=== PATIENT | female | born 1960 | race Caucasian/White ===

== ENCOUNTER 2017-10-29 12:22 | Emergency (ER) | payer MEDICAID ==
[~2017-10-29 12:22] MED LIST: ATOR40TA70 PO; DICY10CA59 PO; LORA1TAB PO; MONT10TA24 PO; PROT40 PO; ZOLP5TAB2 PO
[2017-10-29] MEDS ORDERED: ALPRAZOLAM 0.25 MG TABLET PO ONE (14:30)
[2017-10-29] MEDS ORDERED: ACETAMINOPHEN 500MG TABLET PO ONE (14:30)
[2017-10-29] MEDS ORDERED: MAGNESIUM/ALUMINUM HYDROXIDE/SIMETHICONE 30ML UDC PO ONE (18:15)
[2017-10-29 20:24] VITALS: BP 122/70
== END 2017-10-29 20:26 | disposition home or self-care (01) ==
LOC: ER 13:13
DX: R07.89 Other chest pain (principal); F41.9 Anxiety disorder, unspecified; E78.00 Pure hypercholesterolemia, unspecified; M32.9 Systemic lupus erythematosus, unspecified; R00.0 Tachycardia, unspecified; Z98.890 Other specified postprocedural states; Z90.49 Acquired absence of other specified parts of digestive tract; Z83.3 Family history of diabetes mellitus; Z87.442 Personal history of urinary calculi
CPT/HCPCS: 36415; 71046; 84484; 93005; 99285; Z7610

== ENCOUNTER 2018-01-05 11:54 | Emergency (ER) | payer MEDICAID ==
[~2018-01-05] VITALS: Ht 160 cm; Wt 68.0 kg
[2018-01-05] MEDS ORDERED: LORAZEPAM 0.5MG TABLET PO ONE ×2 (12:45→15:15)
[2018-01-05] MEDS ORDERED: MAGNESIUM/ALUMINUM HYDROXIDE/SIMETHICONE 30ML UDC PO ONE (12:45)
[2018-01-05 12:49] LABS: BASOPHILS % 0.9 % (0.0-2.0); EOSINOPHILS % 0.8 % (0.0-5.0); HEMATOCRIT. 39.8 % (36.0-48.0); HEMOGLOBIN. 13.5 g/dL (12.0-16.0); LYMPHOCYTES % 30.5 % (20.0-50.0); MEAN CORPUSCULAR HEMOGLOBIN 28.9 pg (28.0-32.0); MEAN CORPUSCULAR VOLUME 85.3 fL (81.0-99.0); MEAN PLATELET VOLUME 7.3 fl (7.4-10.4); MONOCYTES % 10.8 % (2.0-8.0); PLATELET 330 x1000/uL (130-400); RED BLOOD CELL COUNT 4.67 mill/uL (4.2-5.4); RED CELL DISTRIBUTION WIDTH 15.1 % (11.6-14.6)
[2018-01-05 12:52] LABS: CHLORIDE 102 mEq/L (98-107)
[2018-01-05 12:53] LABS: PROTHROMBIN TIME 10.5 sec (9.4-11.6)
[2018-01-05 14:43] VITALS: BP 139/80
== END 2018-01-05 15:40 | disposition home or self-care (01) ==
LOC: ER 13:02
DX: R07.9 Chest pain, unspecified (principal); R10.13 Epigastric pain; F41.1 Generalized anxiety disorder; R00.2 Palpitations; E78.00 Pure hypercholesterolemia, unspecified; M32.9 Systemic lupus erythematosus, unspecified; Z90.49 Acquired absence of other specified parts of digestive tract; Z87.442 Personal history of urinary calculi; Z98.890 Other specified postprocedural states
CPT/HCPCS: 36415; 71045; 80053; 83690; 83880; 84484; 85025; 85610; 93005; 99285

== ENCOUNTER 2018-03-20 10:05 | Emergency (ER) | payer MEDICAID ==
[~2018-03-20] VITALS: Ht 160 cm; Wt 63.0 kg
[~2018-03-20 10:05] MED LIST changes: +ASPI-1160 PO; +SUCR1TAB30 PO
[2018-03-20] MEDS ORDERED: FAMOTIDINE 20MG/2ML VIAL IV ONE (10:45)
[2018-03-20] MEDS ORDERED: SODIUM CHLORIDE 0.9% 1,000 ML IV ONE (10:45)
[2018-03-20] MEDS ORDERED: MORPHINE SULFATE 4 MG/ML CPJ (NOT FOR IM USE) IV STA (10:45)
[2018-03-20] MEDS ORDERED: VISCOUS LIDOCAINE 2% 15 ML UDC PO ONE (10:45)
[2018-03-20] MEDS ORDERED: MAGNESIUM/ALUMINUM HYDROXIDE/SIMETHICONE 30ML UDC PO ONE (10:45)
[2018-03-20 11:05] LABS: BASOPHILS % 0.6 % (0.0-2.0); EOSINOPHILS % 1.6 % (0.0-5.0); HEMATOCRIT. 41.8 % (36.0-48.0); HEMOGLOBIN. 13.9 g/dL (12.0-16.0); LYMPHOCYTES % 31.6 % (20.0-50.0); MEAN CORPUSCULAR HEMOGLOBIN 28.5 pg (28.0-32.0); MEAN CORPUSCULAR VOLUME 85.3 fL (81.0-99.0); MEAN PLATELET VOLUME 7.3 fl (7.4-10.4); MONOCYTES % 8.1 % (2.0-8.0); NEUTROPHILS % 58.1 % (40.0-76.0); PLATELET 325 x1000/uL (130-400); RED CELL DISTRIBUTION WIDTH 14.9 % (11.6-14.6)
[2018-03-20 11:32] LABS: CHLORIDE 105 mEq/L (98-107)
[2018-03-20] MEDS ORDERED: LORAZEPAM 0.5MG TABLET PO ONE (12:00)
[2018-03-20] MEDS ORDERED: IBUPROFEN 600MG TABLET PO ONE (14:30)
[2018-03-20 15:03] VITALS: BP 141/87
== END 2018-03-20 15:04 | disposition home or self-care (01) ==
LOC: ER 10:05
DX: R10.13 Epigastric pain (principal); R07.9 Chest pain, unspecified; F41.9 Anxiety disorder, unspecified; K21.9 Gastro-esophageal reflux disease without esophagitis; M32.9 Systemic lupus erythematosus, unspecified; Z79.82 Long term (current) use of aspirin; Z90.49 Acquired absence of other specified parts of digestive tract
CPT/HCPCS: 36415; 71045; 80053; 84484; 85025; 85610; 93005; 96374; 99285; J2270; J3490; J7030; Z7610

== ENCOUNTER 2018-03-27 10:09 | Emergency (ER) | payer MEDICAID ==
[~2018-03-27] VITALS: Ht 154.9 cm; Wt 62.0 kg
[2018-03-27] MEDS ORDERED: SODIUM CHLORIDE 0.9% 1,000 ML IV ONE (10:38)
[2018-03-27] MEDS ORDERED: MORPHINE SULFATE 4 MG/ML CPJ (NOT FOR IM USE) IV STA (10:38)
[2018-03-27] MEDS ORDERED: ONDANSETRON HCL 4MG/2ML VIAL IV STA (10:38)
[2018-03-27 11:04] LABS: CLARITY URINE CLEAR (CLEAR); COLOR URINE YELLOW (YELLOW); KETONES URINE NEGATIVE (NEGATIVE); LEUKOCYTE ESTERASE URINE NEGATIVE (NEGATIVE); NITRITE URINE NEGATIVE (NEGATIVE); OCCULT BLOOD URINE NEGATIVE (NEGATIVE); PH URINE 6.5 (4.5-8.0); PROTEIN URINE NEGATIVE (NEGATIVE); SPECIFIC GRAVITY URINE 1.007 (1.005-1.030); UROBILINOGEN URINE 0.2 E.U./dL (0.2-1.0)
[2018-03-27 11:27] LABS: BASOPHILS % 0.5 % (0.0-2.0); EOSINOPHILS % 0.8 % (0.0-5.0); HEMATOCRIT. 40.5 % (36.0-48.0); HEMOGLOBIN. 13.7 g/dL (12.0-16.0); LYMPHOCYTES % 27.3 % (20.0-50.0); MEAN CORPUSCULAR HEMOGLOBIN 28.6 pg (28.0-32.0); MEAN CORPUSCULAR VOLUME 84.5 fL (81.0-99.0); MEAN PLATELET VOLUME 7.3 fl (7.4-10.4); MONOCYTES % 9.5 % (2.0-8.0); NEUTROPHILS % 61.9 % (40.0-76.0); PLATELET 338 x1000/uL (130-400); RED BLOOD CELL COUNT 4.79 mill/uL (4.2-5.4); RED CELL DISTRIBUTION WIDTH 14.5 % (11.6-14.6)
[2018-03-27] MEDS ORDERED: ACETAMINOPHEN 325MG TABLET PO ONE (11:30)
[2018-03-27 11:34] LABS: CHLORIDE 105 mEq/L (98-107); PROTHROMBIN TIME 10.4 sec (9.4-11.6)
[2018-03-27] MEDS ORDERED: IOHEXOL-300 100 ML BOTTLE ONE (12:17)
[2018-03-27 12:43] VITALS: BP 126/83
[2018-03-27] MEDS ORDERED: MAGNESIUM/ALUMINUM HYDROXIDE/SIMETHICONE 30ML UDC PO ONE (13:00)
== END 2018-03-27 13:16 | disposition home or self-care (01) ==
LOC: ER 11:34 → CANBEDREQ 15:50
DX: R10.9 Unspecified abdominal pain (principal); F41.9 Anxiety disorder, unspecified; M32.9 Systemic lupus erythematosus, unspecified; Z79.82 Long term (current) use of aspirin; Z90.49 Acquired absence of other specified parts of digestive tract
CPT/HCPCS: 36415; 71045; 74177; 80053; 81003; 83690; 83880; 84484; 85025; 85610; 93005; 96374; 99285; J2405; J7030; Q9967; Z7610; J2270

== ENCOUNTER 2018-04-15 15:27 | Emergency (ER) | payer MEDICAID ==
[~2018-04-15] VITALS: Ht 154.9 cm; Wt 64.0 kg
[2018-04-15 16:37] LABS: BASOPHILS % 0.7 % (0.0-2.0); EOSINOPHILS % 1.4 % (0.0-5.0); HEMOGLOBIN. 13.2 g/dL (12.0-16.0); LYMPHOCYTES % 30.1 % (20.0-50.0); MEAN CORPUSCULAR HEMOGLOBIN 28.9 pg (28.0-32.0); MEAN CORPUSCULAR VOLUME 85.4 fL (81.0-99.0); MEAN PLATELET VOLUME 7.7 fl (7.4-10.4); MONOCYTES % 10.9 % (2.0-8.0); NEUTROPHILS % 56.9 % (40.0-76.0); PLATELET 300 x1000/uL (130-400); RED BLOOD CELL COUNT 4.57 mill/uL (4.2-5.4); RED CELL DISTRIBUTION WIDTH 14.5 % (11.6-14.6)
[2018-04-15 16:45] LABS: CHLORIDE 107 mEq/L (98-107)
[2018-04-15 17:27] VITALS: BP 139/74
[2018-04-15] MEDS ORDERED: MAGNESIUM/ALUMINUM HYDROXIDE/SIMETHICONE 30ML UDC PO STA (17:32)
[2018-04-15] MEDS ORDERED: VISCOUS LIDOCAINE 2% 15 ML UDC PO STA (17:32)
[2018-04-15] MEDS ORDERED: DICYCLOMINE 10 MG/5 ML ORAL SYR PO STA (17:32)
[2018-04-15] MEDS ORDERED: ONDANSETRON 4MG ODT PO STA (17:32)
[2018-04-15 19:03] LABS: CLARITY URINE CLEAR (CLEAR); COLOR URINE YELLOW (YELLOW); KETONES URINE NEGATIVE (NEGATIVE); LEUKOCYTE ESTERASE URINE NEGATIVE (NEGATIVE); NITRITE URINE NEGATIVE (NEGATIVE); OCCULT BLOOD URINE NEGATIVE (NEGATIVE); PROTEIN URINE NEGATIVE (NEGATIVE); SPECIFIC GRAVITY URINE 1.004 (1.005-1.030); UROBILINOGEN URINE 0.2 E.U./dL (0.2-1.0)
== END 2018-04-15 19:54 | disposition home or self-care (01) ==
LOC: ER 15:27
DX: K29.70 Gastritis, unspecified, without bleeding (principal); K21.9 Gastro-esophageal reflux disease without esophagitis
CPT/HCPCS: 36415; 80053; 81003; 85025; 93005; 99285; Q0162

== ENCOUNTER 2018-05-03 10:09 | Emergency (ER) | payer MEDICAID ==
[~2018-05-03] VITALS: Ht 162.6 cm; Wt 61.0 kg
[2018-05-03] MEDS ORDERED: SODIUM CHLORIDE 0.9% 1,000 ML IV ONE (10:35)
[2018-05-03] MEDS ORDERED: ONDANSETRON HCL 4MG/2ML INJ IV STA (10:35)
[2018-05-03] MEDS ORDERED: FAMOTIDINE 20MG/2ML VIAL IV STA (10:35)
[2018-05-03] MEDS ORDERED: LORAZEPAM 2MG/ML CPJ IV ONE (10:45)
[2018-05-03 11:05] LABS: BASOPHILS % 1.2 % (0.0-2.0); EOSINOPHILS % 1.3 % (0.0-5.0); HEMATOCRIT. 44.2 % (36.0-48.0); HEMOGLOBIN. 14.9 g/dL (12.0-16.0); LYMPHOCYTES % 34.2 % (20.0-50.0); MEAN CORPUSCULAR VOLUME 85.9 fL (81.0-99.0); MEAN PLATELET VOLUME 7.6 fl (7.4-10.4); MONOCYTES % 10.4 % (2.0-8.0); NEUTROPHILS % 52.9 % (40.0-76.0); PLATELET 317 x1000/uL (130-400); RED BLOOD CELL COUNT 5.15 mill/uL (4.2-5.4); RED CELL DISTRIBUTION WIDTH 14.3 % (11.6-14.6)
[2018-05-03 11:07] LABS: CHLORIDE 105 mEq/L (98-107)
[2018-05-03 11:08] LABS: PROTHROMBIN TIME 10.1 sec (9.1-11.1)
[2018-05-03 11:11] LABS: ETHANOL BLOOD < 10 mg/dL
[2018-05-03 13:02] LABS: CLARITY URINE CLEAR (CLEAR); COLOR URINE YELLOW (YELLOW); KETONES URINE NEGATIVE (NEGATIVE); LEUKOCYTE ESTERASE URINE TRACE (NEGATIVE); NITRITE URINE NEGATIVE (NEGATIVE); OCCULT BLOOD URINE NEGATIVE (NEGATIVE); PROTEIN URINE NEGATIVE (NEGATIVE); SPECIFIC GRAVITY URINE 1.011 (1.005-1.030); UROBILINOGEN URINE 0.2 E.U./dL (0.2-1.0)
[2018-05-03] MEDS ORDERED: VISCOUS LIDOCAINE 2% 15 ML UDC MM STA (13:13)
[2018-05-03] MEDS ORDERED: MAGNESIUM/ALUMINUM HYDROXIDE/SIMETHICONE 30ML UDC PO ONE (13:15)
[2018-05-03 13:24] LABS: *AMPHETAMINES SCREEN URINE NEGATIVE (NEGATIVE)
[2018-05-03 13:25] LABS: *BARBITURATES SCREEN URINE NEGATIVE (NEGATIVE); *BENZODIAZEPINES SCREEN URINE NEGATIVE (NEGATIVE); *COCAINE SCREEN URINE NEGATIVE (NEGATIVE); METHADONE URINE SCREEN NEGATIVE (NEGATIVE); OPIATES URINE SCREEN NEGATIVE (NEGATIVE)
[2018-05-03 13:26] LABS: CANNABINOID URINE SCREEN NEGATIVE (NEGATIVE); PHENCYCLIDINE URINE SCREEN NEGATIVE (NEGATIVE)
[2018-05-03 15:00] VITALS: BP 117/82
== END 2018-05-03 15:00 | disposition home or self-care (01) ==
LOC: ER 10:16
DX: N39.0 Urinary tract infection, site not specified (principal); R00.2 Palpitations; F41.9 Anxiety disorder, unspecified; Z79.899 Other long term (current) drug therapy; Z79.82 Long term (current) use of aspirin; Z88.6 Allergy status to analgesic agent
CPT/HCPCS: 36415; 71045; 80053; 80305; 81003; 83690; 84484; 85025; 85610; 93005; 96361; 96374; 96375; 99285; G0482; J2060; J2405; J3490; J7030

== ENCOUNTER 2018-05-07 10:23 | Emergency (ER) | payer MEDICAID ==
[~2018-05-07] VITALS: Ht 162.6 cm; Wt 61.3 kg
[2018-05-07 12:18] LABS: *AMPHETAMINES SCREEN URINE NEGATIVE (NEGATIVE); *BARBITURATES SCREEN URINE NEGATIVE (NEGATIVE); *BENZODIAZEPINES SCREEN URINE NEGATIVE (NEGATIVE); *COCAINE SCREEN URINE NEGATIVE (NEGATIVE); METHADONE URINE SCREEN NEGATIVE (NEGATIVE); OPIATES URINE SCREEN NEGATIVE (NEGATIVE)
[2018-05-07] MEDS ORDERED: ONDANSETRON HCL 4MG/2ML INJ IV STA (12:19)
[2018-05-07] MEDS ORDERED: MAGNESIUM/ALUMINUM HYDROXIDE/SIMETHICONE 30ML UDC PO STA (12:19)
[2018-05-07] MEDS ORDERED: FAMOTIDINE 20MG/2ML VIAL IV STA (12:19)
[2018-05-07] MEDS ORDERED: SODIUM CHLORIDE 0.9% 1,000 ML IV ONE (12:19)
[2018-05-07 12:20] LABS: CANNABINOID URINE SCREEN NEGATIVE (NEGATIVE); PHENCYCLIDINE URINE SCREEN NEGATIVE (NEGATIVE)
[2018-05-07] MEDS ORDERED: LORAZEPAM 2MG/ML CPJ IM ONE (12:30)
[2018-05-07 12:35] LABS: BASOPHILS % 0.7 % (0.0-2.0); EOSINOPHILS % 1.3 % (0.0-5.0); HEMATOCRIT. 41.9 % (36.0-48.0); HEMOGLOBIN. 14.2 g/dL (12.0-16.0); LYMPHOCYTES % 17.8 % (20.0-50.0); MEAN CORPUSCULAR HEMOGLOBIN 28.9 pg (28.0-32.0); MEAN CORPUSCULAR VOLUME 85.2 fL (81.0-99.0); MEAN PLATELET VOLUME 7.4 fl (7.4-10.4); NEUTROPHILS % 71.2 % (40.0-76.0); PLATELET 314 x1000/uL (130-400); RED BLOOD CELL COUNT 4.92 mill/uL (4.2-5.4); RED CELL DISTRIBUTION WIDTH 14.7 % (11.6-14.6)
[2018-05-07 12:46] LABS: CHLORIDE 108 mEq/L (98-107)
[2018-05-07 12:50] LABS: ETHANOL BLOOD < 10 mg/dL
[2018-05-07 16:04] VITALS: BP 140/80
== END 2018-05-07 16:06 | disposition home or self-care (01) ==
LOC: ER 10:23
DX: R10.13 Epigastric pain (principal); R11.2 Nausea with vomiting, unspecified; F41.9 Anxiety disorder, unspecified; R00.0 Tachycardia, unspecified; E78.00 Pure hypercholesterolemia, unspecified; Z88.5 Allergy status to narcotic agent; Z79.82 Long term (current) use of aspirin; Z79.899 Other long term (current) drug therapy
CPT/HCPCS: 36415; 71045; 80053; 80305; 83690; 83880; 84484; 85025; 85610; 93005; 96361; 96372; 96374; 99285; G0482; J2060; J3490; J7030; Z7610

== ENCOUNTER 2018-05-17 11:20 | Emergency (ER) | payer MEDICAID ==
[~2018-05-17] VITALS: Ht 167.6 cm; Wt 56.0 kg
[2018-05-17] MEDS ORDERED: MAGNESIUM/ALUMINUM HYDROXIDE/SIMETHICONE 30ML UDC PO STA (11:47)
[2018-05-17] MEDS ORDERED: PANTOPRAZOLE SODIUM 40 MG/VIAL IV STA (11:47)
[2018-05-17] MEDS ORDERED: ONDANSETRON HCL 4MG/2ML INJ IV STA (11:47)
[2018-05-17] MEDS ORDERED: SODIUM CHLORIDE 0.9% 1,000 ML IV ONE (11:47)
[2018-05-17 12:29] LABS: BASOPHILS % 0.8 % (0.0-2.0); EOSINOPHILS % 1.3 % (0.0-5.0); HEMATOCRIT. 41.9 % (36.0-48.0); HEMOGLOBIN. 14.4 g/dL (12.0-16.0); LYMPHOCYTES % 36.1 % (20.0-50.0); MEAN CORPUSCULAR HEMOGLOBIN 29.1 pg (28.0-32.0); MEAN CORPUSCULAR VOLUME 85.1 fL (81.0-99.0); MEAN PLATELET VOLUME 7.4 fl (7.4-10.4); MONOCYTES % 11.2 % (2.0-8.0); NEUTROPHILS % 50.6 % (40.0-76.0); PLATELET 356 x1000/uL (130-400); RED BLOOD CELL COUNT 4.93 mill/uL (4.2-5.4); RED CELL DISTRIBUTION WIDTH 14.6 % (11.6-14.6)
[2018-05-17 12:35] LABS: CHLORIDE 104 mEq/L (98-107)
[2018-05-17] MEDS ORDERED: LORAZEPAM 0.5MG TABLET PO ONE (13:15)
[2018-05-17] MEDS ORDERED: ACETAMINOPHEN 325MG TABLET PO ONE (14:15)
[2018-05-17 14:25] VITALS: BP 128/81
== END 2018-05-17 14:34 | disposition home or self-care (01) ==
LOC: ER 11:20
DX: R10.13 Epigastric pain (principal); R11.0 Nausea; Z79.899 Other long term (current) drug therapy; Z79.82 Long term (current) use of aspirin; Z98.890 Other specified postprocedural states; Z88.6 Allergy status to analgesic agent
CPT/HCPCS: 36415; 80053; 83690; 85025; 93005; 99285; J7030; J2405

== ENCOUNTER 2018-05-25 14:11 | Emergency (ER) | payer MEDICAID ==
[~2018-05-25] VITALS: Ht 165.1 cm; Wt 61.0 kg
[2018-05-25] MEDS ORDERED: MAGNESIUM/ALUMINUM HYDROXIDE/SIMETHICONE 30ML UDC PO STA (15:17)
[2018-05-25] MEDS ORDERED: VISCOUS LIDOCAINE 2% 15 ML UDC PO STA (15:17)
[2018-05-25] MEDS ORDERED: LORAZEPAM 2MG/ML CPJ IV ONE (15:30)
[2018-05-25 16:35] LABS: BASOPHILS % 0.8 % (0.0-2.0); EOSINOPHILS % 1.8 % (0.0-5.0); LYMPHOCYTES % 29.4 % (20.0-50.0); MEAN CORPUSCULAR HEMOGLOBIN 29.3 pg (28.0-32.0); MEAN PLATELET VOLUME 8.2 fl (7.4-10.4); MONOCYTES % 9.6 % (2.0-8.0); NEUTROPHILS % 58.4 % (40.0-76.0); PLATELET 273 x1000/uL (130-400); RED BLOOD CELL COUNT 4.77 mill/uL (4.2-5.4); RED CELL DISTRIBUTION WIDTH 14.4 % (11.6-14.6)
[2018-05-25 16:40] LABS: CHLORIDE 106 mEq/L (98-107)
[2018-05-25 16:44] LABS: PROTHROMBIN TIME 9.8 sec (9.1-11.1)
[2018-05-25] MEDS ORDERED: ACETAMINOPHEN 325MG TABLET PO ONE (17:45)
[2018-05-25 20:18] VITALS: BP 127/67
[2018-05-25] MEDS ORDERED: MAGNESIUM HYDROXIDE 400MG/5ML 30ML UDC PO ONE (21:45)
== END 2018-05-25 21:53 | disposition home or self-care (01) ==
LOC: ER 16:32
DX: R10.13 Epigastric pain (principal); E78.00 Pure hypercholesterolemia, unspecified; F41.9 Anxiety disorder, unspecified; M32.9 Systemic lupus erythematosus, unspecified; Z90.49 Acquired absence of other specified parts of digestive tract; Z88.6 Allergy status to analgesic agent; Z79.899 Other long term (current) drug therapy
CPT/HCPCS: 36415; 80053; 83690; 84484; 85025; 85610; 96374; 99285; J2060

== ENCOUNTER 2018-06-01 15:27 | Emergency (ER) | payer MEDICAID ==
[~2018-06-01] VITALS: Ht 154.9 cm; Wt 60.0 kg
[2018-06-01] MEDS ORDERED: MAGNESIUM/ALUMINUM HYDROXIDE/SIMETHICONE 30ML UDC PO ONE (16:15)
[2018-06-01] MEDS ORDERED: VISCOUS LIDOCAINE 2% 15 ML UDC PO ONE (16:15)
[2018-06-01 16:58] LABS: BASOPHILS % 0.8 % (0.0-2.0); EOSINOPHILS % 1.4 % (0.0-5.0); HEMATOCRIT. 40.9 % (36.0-48.0); HEMOGLOBIN. 13.8 g/dL (12.0-16.0); LYMPHOCYTES % 14.3 % (20.0-50.0); MEAN CORPUSCULAR VOLUME 85.6 fL (81.0-99.0); MEAN PLATELET VOLUME 7.8 fl (7.4-10.4); MONOCYTES % 4.1 % (2.0-8.0); NEUTROPHILS % 79.4 % (40.0-76.0); PLATELET 314 x1000/uL (130-400); RED BLOOD CELL COUNT 4.77 mill/uL (4.2-5.4); RED CELL DISTRIBUTION WIDTH 14.4 % (11.6-14.6)
[2018-06-01 17:12] LABS: CHLORIDE 103 mEq/L (98-107)
[2018-06-01] MEDS ORDERED: LORAZEPAM 0.5MG TABLET PO ONE (17:30)
[2018-06-01 18:58] VITALS: BP 137/76
== END 2018-06-01 19:26 | disposition home or self-care (01) ==
LOC: ER 15:27
DX: K21.9 Gastro-esophageal reflux disease without esophagitis (principal); F41.9 Anxiety disorder, unspecified; M32.9 Systemic lupus erythematosus, unspecified; E78.00 Pure hypercholesterolemia, unspecified; Z90.49 Acquired absence of other specified parts of digestive tract; Z88.5 Allergy status to narcotic agent
CPT/HCPCS: 36415; 71045; 80053; 83690; 83880; 84484; 85025; 93005; 99285

== ENCOUNTER 2018-08-02 17:12 | Emergency (ER) | payer MEDICAID ==
[~2018-08-02] VITALS: Ht 160 cm; Wt 61.0 kg
[2018-08-02] MEDS ORDERED: MAGNESIUM/ALUMINUM HYDROXIDE/SIMETHICONE 30ML UDC PO ONE (18:00)
[2018-08-02] MEDS ORDERED: VISCOUS LIDOCAINE 2% 15 ML UDC PO ONE (18:00)
[2018-08-02 19:03] LABS: BASOPHILS % 0.3 % (0.0-2.0); EOSINOPHILS % 0.2 % (0.0-5.0); HEMATOCRIT. 42.3 % (36.0-48.0); LYMPHOCYTES % 15.4 % (20.0-50.0); MEAN CORPUSCULAR HEMOGLOBIN 28.7 pg (28.0-32.0); MEAN CORPUSCULAR VOLUME 86.6 fL (81.0-99.0); MEAN PLATELET VOLUME 7.8 fl (7.4-10.4); MONOCYTES % 3.3 % (2.0-8.0); NEUTROPHILS % 80.8 % (40.0-76.0); PLATELET 349 x1000/uL (130-400); RED BLOOD CELL COUNT 4.89 mill/uL (4.2-5.4); RED CELL DISTRIBUTION WIDTH 14.9 % (11.6-14.6)
[2018-08-02 19:08] LABS: CHLORIDE 104 mEq/L (98-107)
[2018-08-02] MEDS ORDERED: LORAZEPAM 0.5MG TABLET PO ONE (19:30)
[2018-08-02 19:32] LABS: *AMPHETAMINES SCREEN URINE NEGATIVE (NEGATIVE); CANNABINOID URINE SCREEN NEGATIVE (NEGATIVE); METHADONE URINE SCREEN NEGATIVE (NEGATIVE); OPIATES URINE SCREEN NEGATIVE (NEGATIVE); PHENCYCLIDINE URINE SCREEN NEGATIVE (NEGATIVE)
[2018-08-02 19:33] LABS: *BARBITURATES SCREEN URINE NEGATIVE (NEGATIVE); *BENZODIAZEPINES SCREEN URINE NEGATIVE (NEGATIVE); *COCAINE SCREEN URINE NEGATIVE (NEGATIVE)
[2018-08-02] MEDS ORDERED: FAMOTIDINE 20MG/2ML VIAL IV ONE (20:45)
[2018-08-02 21:28] VITALS: BP 137/83
== END 2018-08-02 22:27 | disposition home or self-care (01) ==
LOC: ER 17:12
DX: R10.13 Epigastric pain (principal); K21.9 Gastro-esophageal reflux disease without esophagitis; F41.9 Anxiety disorder, unspecified; M32.9 Systemic lupus erythematosus, unspecified; E78.00 Pure hypercholesterolemia, unspecified; Z90.49 Acquired absence of other specified parts of digestive tract; Z88.6 Allergy status to analgesic agent; Z79.899 Other long term (current) drug therapy
CPT/HCPCS: 36415; 71045; 80053; 80305; 84484; 85025; 93005; 96374; 99284; J3490

== ENCOUNTER 2018-08-11 10:15 | Emergency (ER) | payer MEDICAID ==
[~2018-08-11] VITALS: Ht 162.6 cm; Wt 59.0 kg
[2018-08-11] MEDS ORDERED: VISCOUS LIDOCAINE 2% 15 ML UDC PO STA (10:44)
[2018-08-11] MEDS ORDERED: DICYCLOMINE 10 MG/5 ML ORAL SYR PO STA (10:44)
[2018-08-11] MEDS ORDERED: MAGNESIUM/ALUMINUM HYDROXIDE/SIMETHICONE 30ML UDC PO STA (10:44)
[2018-08-11] MEDS ORDERED: FAMOTIDINE 20MG/2ML VIAL IV STA (10:44)
[2018-08-11] MEDS ORDERED: SODIUM CHLORIDE 0.9% 1,000 ML IV ONE (10:44)
[2018-08-11] MEDS ORDERED: KETOROLAC 15MG/ML VIAL IV ONE (10:45)
[2018-08-11 11:47] LABS: BASOPHILS % 0.6 % (0.0-2.0); EOSINOPHILS % 0.9 % (0.0-5.0); HEMATOCRIT. 41.6 % (36.0-48.0); LYMPHOCYTES % 27.9 % (20.0-50.0); MEAN CORPUSCULAR HEMOGLOBIN 28.9 pg (28.0-32.0); MEAN PLATELET VOLUME 7.7 fl (7.4-10.4); MONOCYTES % 9.9 % (2.0-8.0); NEUTROPHILS % 60.7 % (40.0-76.0); PLATELET 304 x1000/uL (130-400); RED BLOOD CELL COUNT 4.84 mill/uL (4.2-5.4); RED CELL DISTRIBUTION WIDTH 14.7 % (11.6-14.6)
[2018-08-11 11:53] LABS: INR 1.1; PROTHROMBIN TIME 10.7 sec (9.1-11.1)
[2018-08-11 11:54] LABS: CHLORIDE 105 mEq/L (98-107)
[2018-08-11 12:40] LABS: CLARITY URINE CLEAR (CLEAR); COLOR URINE YELLOW (YELLOW); KETONES URINE NEGATIVE (NEGATIVE); LEUKOCYTE ESTERASE URINE NEGATIVE (NEGATIVE); NITRITE URINE NEGATIVE (NEGATIVE); OCCULT BLOOD URINE NEGATIVE (NEGATIVE); PH URINE >=9.0 (4.5-8.0); PROTEIN URINE NEGATIVE (NEGATIVE); SPECIFIC GRAVITY URINE 1.014 (1.005-1.030); UROBILINOGEN URINE 0.2 E.U./dL (0.2-1.0)
[2018-08-11] MEDS ORDERED: ACETAMINOPHEN 325MG TABLET PO ONE (13:45)
[2018-08-11] MEDS ORDERED: ONDANSETRON 4MG ODT PO ONE (13:45)
[2018-08-11] MEDS ORDERED: LORAZEPAM 0.5MG TABLET PO ONE (14:00)
[2018-08-11 14:33] VITALS: BP 145/79
== END 2018-08-11 15:22 | disposition home or self-care (01) ==
LOC: ER 11:24
DX: R07.89 Other chest pain (principal); F41.9 Anxiety disorder, unspecified; E78.00 Pure hypercholesterolemia, unspecified; R10.84 Generalized abdominal pain; R11.2 Nausea with vomiting, unspecified; Z87.11 Personal history of peptic ulcer disease; Z90.49 Acquired absence of other specified parts of digestive tract; Z79.82 Long term (current) use of aspirin; Z79.899 Other long term (current) drug therapy; Z88.6 Allergy status to analgesic agent
CPT/HCPCS: 36415; 80053; 81003; 83690; 85025; 85610; 93005; 96361; 96374; 99284; J3490; J7030; Q0162; J1885

== ENCOUNTER 2018-09-02 11:37 | Emergency (ER) | payer MEDICAID ==
[~2018-09-02] VITALS: Ht 152.4 cm; Wt 62.0 kg
[2018-09-02] MEDS ORDERED: LORAZEPAM 1MG TABLET PO ONE (20:45)
[2018-09-02] MEDS ORDERED: VISCOUS LIDOCAINE 2% 15 ML UDC PO ONE (20:45)
[2018-09-02] MEDS ORDERED: MAGNESIUM/ALUMINUM HYDROXIDE/SIMETHICONE 30ML UDC PO ONE (20:45)
[2018-09-02 21:26] LABS: BASOPHILS % 0.6 % (0.0-2.0); CHLORIDE 105 mEq/L (98-107); EOSINOPHILS % 1.4 % (0.0-5.0); HEMATOCRIT. 44.1 % (36.0-48.0); HEMOGLOBIN. 14.6 g/dL (12.0-16.0); LYMPHOCYTES % 33.2 % (20.0-50.0); MEAN CORPUSCULAR HEMOGLOBIN 28.7 pg (28.0-32.0); MEAN CORPUSCULAR VOLUME 86.6 fL (81.0-99.0); MEAN PLATELET VOLUME 7.7 fl (7.4-10.4); MONOCYTES % 10.4 % (2.0-8.0); NEUTROPHILS % 54.4 % (40.0-76.0); PLATELET 311 x1000/uL (130-400); RED BLOOD CELL COUNT 5.09 mill/uL (4.2-5.4); RED CELL DISTRIBUTION WIDTH 14.8 % (11.6-14.6)
[2018-09-02] MEDS ORDERED: FAMOTIDINE 20MG TABLET PO ONE (21:45)
[2018-09-02 22:34] VITALS: BP 155/81
== END 2018-09-02 22:36 | disposition home or self-care (01) ==
LOC: ER 11:37
DX: F41.1 Generalized anxiety disorder (principal); K21.9 Gastro-esophageal reflux disease without esophagitis; E78.00 Pure hypercholesterolemia, unspecified; M32.9 Systemic lupus erythematosus, unspecified; Z88.5 Allergy status to narcotic agent; Z90.49 Acquired absence of other specified parts of digestive tract
CPT/HCPCS: 36415; 71045; 84484; 93005; 99284

== ENCOUNTER 2018-11-24 09:37 | Inpatient (IN) | payer MEDICAID ==
[~2018-11-24] VITALS: Ht 160 cm; Wt 62.6 kg
[2018-11-24] MEDS ORDERED: ASPIRIN 81MG TABLET PO ONE (10:15)
[2018-11-24 10:23] LABS: BASOPHILS % 0.9 % (0.0-2.0); EOSINOPHILS % 1.4 % (0.0-5.0); HEMATOCRIT. 43.9 % (36.0-48.0); HEMOGLOBIN. 14.8 g/dL (12.0-16.0); LYMPHOCYTES % 35.8 % (20.0-50.0); MEAN CORPUSCULAR HEMOGLOBIN 28.9 pg (28.0-32.0); MEAN CORPUSCULAR VOLUME 86.1 fL (81.0-99.0); MEAN PLATELET VOLUME 7.6 fl (7.4-10.4); MONOCYTES % 8.8 % (2.0-8.0); NEUTROPHILS % 53.1 % (40.0-76.0); PLATELET 361 x1000/uL (130-400); RED CELL DISTRIBUTION WIDTH 13.9 % (11.6-14.6)
[2018-11-24 10:25] LABS: CHLORIDE 108 mEq/L (98-107)
[2018-11-24] MEDS ORDERED: LORAZEPAM 2MG/ML CPJ IV ONE (10:45)
[2018-11-24] MEDS ORDERED: MAGNESIUM/ALUMINUM HYDROXIDE/SIMETHICONE 30ML UDC PO ONE (12:30)
[2018-11-24] MEDS ORDERED: VISCOUS LIDOCAINE 2% 15 ML UDC PO ONE (12:30)
[2018-11-24] MEDS ORDERED: IOHEXOL-350 100 ML BOTTLE ONE (15:44)
[2018-11-24 16:30] VITALS: BP 137/78
[2018-11-24] MEDS ORDERED: ZOLPIDEM TARTRATE 5MG TABLET PO PRN (16:45)
[2018-11-24] MEDS ORDERED: ONDANSETRON HCL 4MG/2ML INJ IV PRN (16:45)
[2018-11-24] MEDS ORDERED: MORPHINE SULFATE 2 MG/ML CPJ (NOT FOR IM USE) IV PRN (16:45)
[2018-11-24 16:59] VITALS: BP 137/78
[2018-11-24] MEDS ORDERED: HYDROCODONE/ACETAMINOPHEN 5/325MG TABLET PO PRN (17:00)
[2018-11-24] MEDS: ACETAMINOPHEN 325MG TABLET PO PRN (17:52)
[2018-11-24] MEDS ORDERED: PRED10TA23 MT (18:31)
[2018-11-24] MEDS ORDERED: RANI150C12 MT (18:31)
[2018-11-24] MEDS ORDERED: HYDR200T35 MT (18:31)
[2018-11-24] MEDS ORDERED: AZAT50TA24 MT (18:31)
[2018-11-24 20:00] VITALS: BP 120/70
[2018-11-24 22:47] LABS: CLARITY URINE CLEAR (CLEAR); COLOR URINE YELLOW (YELLOW); KETONES URINE NEGATIVE (NEGATIVE); LEUKOCYTE ESTERASE URINE NEGATIVE (NEGATIVE); NITRITE URINE NEGATIVE (NEGATIVE); OCCULT BLOOD URINE NEGATIVE (NEGATIVE); PROTEIN URINE NEGATIVE (NEGATIVE); SPECIFIC GRAVITY URINE 1.009 (1.005-1.030); UROBILINOGEN URINE 0.2 E.U./dL (0.2-1.0)
[2018-11-25] VITALS: BP 118/65
[2018-11-25 04:00] VITALS: BP 111/67
[2018-11-25] MEDS: OMEPRAZOLE 20MG CAPSULE EXTENDED RELEASE PO SCH (05:52)
[2018-11-25 06:39] LABS: EOSINOPHILS % 2.5 % (0.0-5.0); HEMATOCRIT. 39.7 % (36.0-48.0); HEMOGLOBIN. 13.4 g/dL (12.0-16.0); LYMPHOCYTES % 31.9 % (20.0-50.0); MEAN CORPUSCULAR VOLUME 85.6 fL (81.0-99.0); MEAN PLATELET VOLUME 7.8 fl (7.4-10.4); MONOCYTES % 11.5 % (2.0-8.0); NEUTROPHILS % 53.1 % (40.0-76.0); PLATELET 310 x1000/uL (130-400); RED BLOOD CELL COUNT 4.64 mill/uL (4.2-5.4)
[2018-11-25 06:54] LABS: CHLORIDE 108 mEq/L (98-107)
[2018-11-25] MEDS: AMLODIPINE 5MG TABLET PO SCH (08:47)
[2018-11-25] MEDS: ACETAMINOPHEN 325MG TABLET PO PRN (08:48)
[2018-11-25] MEDS: LORAZEPAM 2MG/ML CPJ IV PRN ×2 (11:27→23:34)
[2018-11-25] MEDS ORDERED: PANTOPRAZOLE 40MG DR TABLET PO SCH (11:30)
[2018-11-25] MEDS: HYDROXYCHLOROQUINE SULFATE 200MG TABLET PO SCH (12:41)
[2018-11-25] MEDS: DICYCLOMINE HCL 10MG CAPSULE PO SCH ×2 (12:41→19:56)
[2018-11-25] MEDS: ATORVASTATIN CALCIUM 40MG TABLET PO SCH (12:41)
[2018-11-25] MEDS: PREDNISONE 10MG TABLET PO SCH (12:41)
[2018-11-25 12:49] LABS: PHOSPHORUS 3.7 mg/dL (2.5-4.9)
[2018-11-25 12:51] LABS: C REACTIVE PROTEIN QUANT 1.8 mg/L (0.0-3.0)
[2018-11-25] MEDS: AZATHIOPRINE 50MG TABLET PO SCH ×2 (13:24→18:04)
[2018-11-25 20:00] VITALS: BP 123/71
[2018-11-25] MEDS ORDERED: MONTELUKAST SODIUM 10MG TABLET PO SCH (21:00)
[2018-11-25] MEDS ORDERED: ZOLPIDEM TARTRATE 5MG TABLET PO PRN (21:00)
[2018-11-26] VITALS: BP 118/73
[2018-11-26] MEDS: DICYCLOMINE HCL 10MG CAPSULE PO SCH ×2 (03:50→12:54)
[2018-11-26 04:00] VITALS: BP 114/63
[2018-11-26] MEDS: OMEPRAZOLE 20MG CAPSULE EXTENDED RELEASE PO SCH (06:11)
[2018-11-26 06:31] LABS: BASOPHILS % 0.6 % (0.0-2.0); EOSINOPHILS % 1.9 % (0.0-5.0); HEMATOCRIT. 40.1 % (36.0-48.0); HEMOGLOBIN. 13.5 g/dL (12.0-16.0); LYMPHOCYTES % 28.9 % (20.0-50.0); MEAN CORPUSCULAR HEMOGLOBIN 28.7 pg (28.0-32.0); MEAN CORPUSCULAR VOLUME 85.2 fL (81.0-99.0); MEAN PLATELET VOLUME 7.8 fl (7.4-10.4); MONOCYTES % 11.1 % (2.0-8.0); NEUTROPHILS % 57.5 % (40.0-76.0); PLATELET 315 x1000/uL (130-400); RED BLOOD CELL COUNT 4.71 mill/uL (4.2-5.4); RED CELL DISTRIBUTION WIDTH 13.9 % (11.6-14.6)
[2018-11-26 07:14] LABS: CHLORIDE 105 mEq/L (98-107)
[2018-11-26 08:00] VITALS: BP 120/62
[2018-11-26] MEDS ORDERED: FAMOTIDINE 20MG TABLET PO SCH (09:00)
[2018-11-26] MEDS: AZATHIOPRINE 50MG TABLET PO SCH ×2 (10:03→18:46)
[2018-11-26] MEDS: PREDNISONE 10MG TABLET PO SCH (10:04)
[2018-11-26] MEDS: ATORVASTATIN CALCIUM 40MG TABLET PO SCH (10:04)
[2018-11-26] MEDS: HYDROXYCHLOROQUINE SULFATE 200MG TABLET PO SCH (10:05)
[2018-11-26] MEDS: AMLODIPINE 5MG TABLET PO SCH (10:05)
[2018-11-26 12:00] VITALS: BP 115/66
[2018-11-26] MEDS: LORAZEPAM 2MG/ML CPJ IV PRN (15:40)
[2018-11-26 16:00] VITALS: BP 118/71
[2018-11-26] MEDS ORDERED: AMLO5TAB88 PO (16:49)
[2018-11-26 18:25] VITALS: BP 118/71
== END 2018-11-26 19:30 | disposition home or self-care (01) | DRG 241 ==
LOC: ER 09:37 → 5WST 14:05 → ENRESERV 15:30
PROVIDERS: ADMIT Internal Medicine; ATTEND Internal Medicine
DX: K29.70 Gastritis, unspecified, without bleeding (principal); M32.9 Systemic lupus erythematosus, unspecified; E78.00 Pure hypercholesterolemia, unspecified; J44.9 Chronic obstructive pulmonary disease, unspecified; K76.9 Liver disease, unspecified; R00.0 Tachycardia, unspecified; E78.5 Hyperlipidemia, unspecified; K21.9 Gastro-esophageal reflux disease without esophagitis; F41.9 Anxiety disorder, unspecified; K44.9 Diaphragmatic hernia without obstruction or gangrene; Z82.49 Family history of ischemic heart disease and other diseases of the circulatory system; Z87.891 Personal history of nicotine dependence; Z90.710 Acquired absence of both cervix and uterus; Z88.5 Allergy status to narcotic agent; Z79.899 Other long term (current) drug therapy; Z90.49 Acquired absence of other specified parts of digestive tract
CPT/HCPCS: 36415; 71045; 71275; 80048; 80061; 83735; 83880; 84100; 84484; 85651; 86140; 93005; 93306; 93970; 96374; 99285; J2060; J7500; J7512; Q9967

== ENCOUNTER 2018-12-27 17:59 | Emergency (ER) | payer MEDICAID ==
[~2018-12-27] VITALS: Ht 157.5 cm; Wt 65.3 kg
[~2018-12-27 17:59] MED LIST changes: +AMLO5TAB88 PO; -ASPI-1160 PO; +AZAT50TA24 MT; +HYDR200T35 MT; +PRED10TA23 MT; -PROT40 PO; +RANI150C12 MT; -SUCR1TAB30 PO
[2018-12-27] MEDS ORDERED: LORAZEPAM 1MG TABLET PO ONE (18:30)
[2018-12-27] MEDS ORDERED: ASPIRIN 81MG TABLET PO ONE (18:30)
[2018-12-27] MEDS ORDERED: MAGNESIUM/ALUMINUM HYDROXIDE/SIMETHICONE 30ML UDC PO ONE (18:30)
[2018-12-27] MEDS ORDERED: VISCOUS LIDOCAINE 2% 15 ML UDC PO ONE (18:30)
[2018-12-27 18:49] LABS: BASOPHILS % 0.7 % (0.0-2.0); EOSINOPHILS % 1.4 % (0.0-5.0); HEMATOCRIT. 40.8 % (36.0-48.0); HEMOGLOBIN. 13.8 g/dL (12.0-16.0); MEAN CORPUSCULAR HEMOGLOBIN 28.8 pg (28.0-32.0); MEAN CORPUSCULAR VOLUME 84.9 fL (81.0-99.0); MEAN PLATELET VOLUME 7.4 fl (7.4-10.4); MONOCYTES % 10.8 % (2.0-8.0); NEUTROPHILS % 48.1 % (40.0-76.0); PLATELET 375 x1000/uL (130-400); RED CELL DISTRIBUTION WIDTH 14.4 % (11.6-14.6)
[2018-12-27 18:57] LABS: CHLORIDE 105 mEq/L (98-107)
[2018-12-27 23:30] VITALS: BP 134/74
== END 2018-12-27 23:30 | disposition home or self-care (01) ==
LOC: ER 18:00
DX: K21.9 Gastro-esophageal reflux disease without esophagitis (principal); F41.9 Anxiety disorder, unspecified; R07.9 Chest pain, unspecified; E78.00 Pure hypercholesterolemia, unspecified; Z90.49 Acquired absence of other specified parts of digestive tract; Z90.710 Acquired absence of both cervix and uterus; Z88.5 Allergy status to narcotic agent; Z79.899 Other long term (current) drug therapy
CPT/HCPCS: 36415; 71045; 83880; 84484; 93005; 99284

== ENCOUNTER 2019-01-08 08:13 | Emergency (ER) | payer MEDICAID ==
[~2019-01-08] VITALS: Ht 152.4 cm; Wt 68.0 kg
[2019-01-08] MEDS ORDERED: VISCOUS LIDOCAINE 2% 15 ML UDC PO STA (11:27)
[2019-01-08] MEDS ORDERED: DICYCLOMINE 10 MG/5 ML ORAL SYR PO STA (11:27)
[2019-01-08] MEDS ORDERED: MAGNESIUM/ALUMINUM HYDROXIDE/SIMETHICONE 30ML UDC PO STA (11:27)
[2019-01-08] MEDS ORDERED: ONDANSETRON HCL 4MG/2ML INJ IV STA (11:27)
[2019-01-08 12:28] LABS: CHLORIDE 110 mEq/L (98-107)
[2019-01-08 12:29] LABS: CLARITY URINE CLEAR (CLEAR); COLOR URINE YELLOW (YELLOW); KETONES URINE NEGATIVE (NEGATIVE); LEUKOCYTE ESTERASE URINE 1+ (NEGATIVE); NITRITE URINE NEGATIVE (NEGATIVE); OCCULT BLOOD URINE NEGATIVE (NEGATIVE); PH URINE 5.5 (4.5-8.0); PROTEIN URINE NEGATIVE (NEGATIVE); SPECIFIC GRAVITY URINE 1.017 (1.005-1.030); UROBILINOGEN URINE 0.2 E.U./dL (0.2-1.0)
[2019-01-08 12:30] LABS: BASOPHILS % 0.7 % (0.0-2.0); EOSINOPHILS % 0.9 % (0.0-5.0); HEMATOCRIT. 40.4 % (36.0-48.0); HEMOGLOBIN. 13.7 g/dL (12.0-16.0); LYMPHOCYTES % 34.4 % (20.0-50.0); MEAN CORPUSCULAR HEMOGLOBIN 28.8 pg (28.0-32.0); MEAN CORPUSCULAR VOLUME 85.3 fL (81.0-99.0); MEAN PLATELET VOLUME 7.4 fl (7.4-10.4); MONOCYTES % 9.1 % (2.0-8.0); NEUTROPHILS % 54.9 % (40.0-76.0); PLATELET 305 x1000/uL (130-400); RED BLOOD CELL COUNT 4.74 mill/uL (4.2-5.4); RED CELL DISTRIBUTION WIDTH 14.6 % (11.6-14.6)
[2019-01-08 12:34] LABS: PROTHROMBIN TIME 9.9 sec (9.6-11.0)
[2019-01-08] MEDS ORDERED: LORAZEPAM 1MG TABLET PO ONE (13:45)
[2019-01-08 15:44] VITALS: BP 114/87
[2019-01-08] MEDS ORDERED: ACETAMINOPHEN 325MG TABLET PO ONE (15:45)
[2019-01-08] MEDS ORDERED: FAMOTIDINE 20MG/2ML VIAL IV ONE (15:45)
== END 2019-01-08 15:52 | disposition home or self-care (01) ==
LOC: ER 08:13
DX: R10.13 Epigastric pain (principal); F41.9 Anxiety disorder, unspecified; E78.00 Pure hypercholesterolemia, unspecified; M32.9 Systemic lupus erythematosus, unspecified; K76.9 Liver disease, unspecified; K21.9 Gastro-esophageal reflux disease without esophagitis; Z88.5 Allergy status to narcotic agent; Z90.49 Acquired absence of other specified parts of digestive tract; Z90.710 Acquired absence of both cervix and uterus
CPT/HCPCS: 36415; 74176; 80053; 81003; 83690; 85025; 85610; 93005; 96374; 96375; 99284; J2405; J3490

== ENCOUNTER 2019-02-01 18:43 | Emergency (ER) | payer MEDICAID ==
[~2019-02-01] VITALS: Ht 157.5 cm; Wt 67.0 kg
[2019-02-01] MEDS ORDERED: ACETAMINOPHEN 325MG TABLET PO STA (19:44)
[2019-02-01] MEDS ORDERED: SODIUM CHLORIDE 0.9% 1000ML BAG (SEPSIS BOLUS) IV ONE (19:45)
[2019-02-01 20:12] LABS: BASOPHILS % 0.8 % (0.0-2.0); EOSINOPHILS % 0.4 % (0.0-5.0); HEMATOCRIT. 41.4 % (36.0-48.0); HEMOGLOBIN. 14.5 g/dL (12.0-16.0); LYMPHOCYTES % 26.5 % (20.0-50.0); MEAN CORPUSCULAR HEMOGLOBIN 29.7 pg (28.0-32.0); MEAN CORPUSCULAR VOLUME 84.7 fL (81.0-99.0); MEAN PLATELET VOLUME 8.2 fl (7.4-10.4); MONOCYTES % 12.6 % (2.0-8.0); NEUTROPHILS % 59.7 % (40.0-76.0); PLATELET 315 x1000/uL (130-400); RED BLOOD CELL COUNT 4.89 mill/uL (4.2-5.4); RED CELL DISTRIBUTION WIDTH 14.7 % (11.6-14.6)
[2019-02-01 20:14] LABS: CHLORIDE 104 mEq/L (98-107)
[2019-02-01] MEDS ORDERED: LORAZEPAM 1MG TABLET PO ONE (21:15)
[2019-02-01] MEDS ORDERED: GUAIFENESIN/CODEINE 100-10MG/5ML UDC PO ONE (22:15)
[2019-02-01 22:29] LABS: CLARITY URINE CLEAR (CLEAR); COLOR URINE YELLOW (YELLOW); KETONES URINE NEGATIVE (NEGATIVE); LEUKOCYTE ESTERASE URINE 1+ (NEGATIVE); NITRITE URINE NEGATIVE (NEGATIVE); OCCULT BLOOD URINE TRACE (NEGATIVE); PROTEIN URINE NEGATIVE (NEGATIVE); SPECIFIC GRAVITY URINE 1.005 (1.005-1.030); UROBILINOGEN URINE 0.2 E.U./dL (0.2-1.0)
[2019-02-01] MEDS ORDERED: IOHEXOL-350 100 ML BOTTLE ONE (23:32)
[2019-02-02 00:08] VITALS: BP 115/51
== END 2019-02-02 00:25 | disposition home or self-care (01) ==
LOC: ER 18:43 → CANBEDREQ 02-02 01:14
DX: R05 Cough (principal); R00.2 Palpitations; R50.9 Fever, unspecified; F41.9 Anxiety disorder, unspecified; Z87.01 Personal history of pneumonia (recurrent); Z79.899 Other long term (current) drug therapy; Z88.6 Allergy status to analgesic agent
CPT/HCPCS: 36415; 71045; 71275; 80053; 81003; 83605; 85025; 87040; 87804; 93005; 99284; J7030; Q9967

== ENCOUNTER 2019-02-20 11:37 | Emergency (ER) | payer MEDICAID ==
[~2019-02-20] VITALS: Ht 160 cm; Wt 59.0 kg
[2019-02-20] MEDS ORDERED: SODIUM CHLORIDE 0.9% 1,000 ML IV ONE (12:22)
[2019-02-20] MEDS ORDERED: ONDANSETRON HCL 4MG/2ML INJ IV STA (12:22)
[2019-02-20] MEDS ORDERED: KETOROLAC 30MG/ML VIAL IV STA (12:22)
[2019-02-20] MEDS ORDERED: MAGNESIUM/ALUMINUM HYDROXIDE/SIMETHICONE 30ML UDC PO ONE (12:30)
[2019-02-20 12:44] LABS: CLARITY URINE CLEAR (CLEAR); COLOR URINE YELLOW (YELLOW); KETONES URINE NEGATIVE (NEGATIVE); LEUKOCYTE ESTERASE URINE NEGATIVE (NEGATIVE); NITRITE URINE NEGATIVE (NEGATIVE); OCCULT BLOOD URINE NEGATIVE (NEGATIVE); PH URINE 5.5 (4.5-8.0); PROTEIN URINE NEGATIVE (NEGATIVE); SPECIFIC GRAVITY URINE 1.014 (1.005-1.030); UROBILINOGEN URINE 0.2 E.U./dL (0.2-1.0)
[2019-02-20 13:44] LABS: BASOPHILS % 0.6 % (0.0-2.0); EOSINOPHILS % 0.9 % (0.0-5.0); HEMATOCRIT. 40.8 % (36.0-48.0); HEMOGLOBIN. 13.9 g/dL (12.0-16.0); LYMPHOCYTES % 32.3 % (20.0-50.0); MEAN CORPUSCULAR HEMOGLOBIN 28.6 pg (28.0-32.0); MEAN PLATELET VOLUME 7.5 fl (7.4-10.4); MONOCYTES % 9.4 % (2.0-8.0); NEUTROPHILS % 56.8 % (40.0-76.0); PLATELET 358 x1000/uL (130-400); RED BLOOD CELL COUNT 4.86 mill/uL (4.2-5.4); RED CELL DISTRIBUTION WIDTH 14.6 % (11.6-14.6)
[2019-02-20 13:50] LABS: CHLORIDE 106 mEq/L (98-107)
[2019-02-20] MEDS ORDERED: IOHEXOL-300 100 ML BOTTLE ONE (15:15)
[2019-02-20 16:20] VITALS: BP 122/77
== END 2019-02-20 16:33 | disposition home or self-care (01) ==
LOC: ER 11:37
DX: R10.13 Epigastric pain (principal); M32.9 Systemic lupus erythematosus, unspecified; F41.9 Anxiety disorder, unspecified; Z90.49 Acquired absence of other specified parts of digestive tract; Z88.5 Allergy status to narcotic agent
CPT/HCPCS: 36415; 74177; 80053; 81003; 83690; 85025; 93005; 96361; 96374; 96375; 99284; J1885; J2405; J7030; Q9967; Z7610

== ENCOUNTER 2019-04-28 13:06 | Emergency (ER) | payer MEDICAID ==
[~2019-04-28] VITALS: Ht 172.7 cm; Wt 68.0 kg
[2019-04-28] MEDS ORDERED: SODIUM CHLORIDE 0.9% 1,000 ML IV ONE (17:31)
[2019-04-28] MEDS ORDERED: ONDANSETRON HCL 4MG/2ML INJ IV STA (17:31)
[2019-04-28] MEDS ORDERED: LORAZEPAM 2MG/ML CPJ IV ONE (17:45)
[2019-04-28] MEDS ORDERED: FAMOTIDINE 20MG/2ML VIAL IV ONE (17:45)
[2019-04-28] MEDS ORDERED: KETOROLAC 15MG/ML VIAL IV ONE (17:45)
[2019-04-28 18:01] LABS: BASOPHILS % 0.6 % (0.0-2.0); EOSINOPHILS % 1.2 % (0.0-5.0); HEMATOCRIT. 41.8 % (36.0-48.0); LYMPHOCYTES % 36.8 % (20.0-50.0); MEAN CORPUSCULAR HEMOGLOBIN 28.1 pg (28.0-32.0); MEAN CORPUSCULAR VOLUME 83.6 fL (81.0-99.0); MEAN PLATELET VOLUME 7.7 fl (7.4-10.4); MONOCYTES % 9.8 % (2.0-8.0); NEUTROPHILS % 51.6 % (40.0-76.0); PLATELET 290 x1000/uL (130-400); RED CELL DISTRIBUTION WIDTH 14.8 % (11.6-14.6)
[2019-04-28 18:04] LABS: CHLORIDE 105 mEq/L (98-107)
[2019-04-28 18:15] LABS: PARTIAL THROMBOPLASTIN TIME 25.2 sec (23.4-31.0)
[2019-04-28 18:34] LABS: CLARITY URINE CLEAR (CLEAR); COLOR URINE YELLOW (YELLOW); KETONES URINE 2+ (NEGATIVE); LEUKOCYTE ESTERASE URINE NEGATIVE (NEGATIVE); NITRITE URINE NEGATIVE (NEGATIVE); OCCULT BLOOD URINE TRACE (NEGATIVE); PH URINE 6.5 (4.5-8.0); PROTEIN URINE NEGATIVE (NEGATIVE); SPECIFIC GRAVITY URINE 1.017 (1.005-1.030); UROBILINOGEN URINE 0.2 E.U./dL (0.2-1.0)
[2019-04-28 21:20] VITALS: BP 149/91
== END 2019-04-28 23:05 | disposition left against medical advice (07) ==
LOC: ER 13:06
DX: R10.13 Epigastric pain (principal); R07.89 Other chest pain; R00.2 Palpitations; F41.9 Anxiety disorder, unspecified; M32.9 Systemic lupus erythematosus, unspecified; E78.00 Pure hypercholesterolemia, unspecified; Z90.49 Acquired absence of other specified parts of digestive tract; Z88.5 Allergy status to narcotic agent
CPT/HCPCS: 36415; 71045; 80053; 81003; 83690; 83880; 84484; 85025; 85610; 85730; 93005; 96374; 96375; 99284; J1885; J2060; J2405; J3490; J7030

== ENCOUNTER 2019-05-19 08:12 | Emergency (ER) | payer MEDICAID ==
[~2019-05-19] VITALS: Ht 162.6 cm; Wt 147.0 kg
[2019-05-19] MEDS ORDERED: ONDANSETRON HCL 4MG/2ML INJ IV STA (09:49)
[2019-05-19] MEDS ORDERED: KETOROLAC 30MG/ML VIAL IV STA (09:49)
[2019-05-19] MEDS ORDERED: FAMOTIDINE 20MG/2ML VIAL IV STA (09:49)
[2019-05-19] MEDS ORDERED: MAGNESIUM/ALUMINUM HYDROXIDE/SIMETHICONE 30ML UDC PO STA (09:49)
[2019-05-19] MEDS ORDERED: VISCOUS LIDOCAINE 2% 15 ML UDC PO STA (09:49)
[2019-05-19] MEDS ORDERED: DICYCLOMINE 10 MG/5 ML ORAL SYR PO STA (09:49)
[2019-05-19 10:00] VITALS: BP 134/74
[2019-05-19 10:20] LABS: BASOPHILS % 0.5 % (0.0-2.0); EOSINOPHILS % 1.3 % (0.0-5.0); HEMATOCRIT. 41.7 % (36.0-48.0); HEMOGLOBIN. 14.1 g/dL (12.0-16.0); LYMPHOCYTES % 32.4 % (20.0-50.0); MEAN CORPUSCULAR HEMOGLOBIN 28.2 pg (28.0-32.0); MEAN CORPUSCULAR VOLUME 83.7 fL (81.0-99.0); MEAN PLATELET VOLUME 7.7 fl (7.4-10.4); MONOCYTES % 9.7 % (2.0-8.0); NEUTROPHILS % 56.1 % (40.0-76.0); PLATELET 282 x1000/uL (130-400); RED BLOOD CELL COUNT 4.99 mill/uL (4.2-5.4); RED CELL DISTRIBUTION WIDTH 15.1 % (11.6-14.6)
[2019-05-19 10:24] LABS: CHLORIDE 109 mEq/L (98-107)
[2019-05-19 10:25] LABS: PROTHROMBIN TIME 10.1 sec (9.6-11.0)
== END 2019-05-19 11:28 | disposition home or self-care (01) ==
LOC: ER 08:12
DX: K21.9 Gastro-esophageal reflux disease without esophagitis (principal); M32.9 Systemic lupus erythematosus, unspecified; F41.9 Anxiety disorder, unspecified; E78.00 Pure hypercholesterolemia, unspecified; Z90.49 Acquired absence of other specified parts of digestive tract; Z88.5 Allergy status to narcotic agent; Z90.710 Acquired absence of both cervix and uterus
CPT/HCPCS: 36415; 80053; 83690; 85025; 85610; 93005; 96374; 96375; 99284; J1885; J2405; J3490

== ENCOUNTER 2019-06-05 10:47 | Emergency (ER) | payer MEDICAID ==
[~2019-06-05] VITALS: Ht 152.4 cm; Wt 62.0 kg
[2019-06-05 11:26] LABS: BASOPHILS % 0.6 % (0.0-2.0); EOSINOPHILS % 1.1 % (0.0-5.0); HEMATOCRIT. 43.6 % (36.0-48.0); HEMOGLOBIN. 14.7 g/dL (12.0-16.0); LYMPHOCYTES % 28.9 % (20.0-50.0); MEAN CORPUSCULAR HEMOGLOBIN 28.6 pg (28.0-32.0); MEAN CORPUSCULAR VOLUME 84.7 fL (81.0-99.0); MEAN PLATELET VOLUME 7.3 fl (7.4-10.4); MONOCYTES % 7.2 % (2.0-8.0); NEUTROPHILS % 62.2 % (40.0-76.0); PLATELET 321 x1000/uL (130-400); RED BLOOD CELL COUNT 5.15 mill/uL (4.2-5.4); RED CELL DISTRIBUTION WIDTH 14.7 % (11.6-14.6)
[2019-06-05 11:32] LABS: CHLORIDE 108 mEq/L (98-107)
[2019-06-05] MEDS ORDERED: ONDANSETRON HCL 4MG/2ML INJ IV ONE (11:45)
[2019-06-05] MEDS ORDERED: LORAZEPAM 2MG/ML CPJ IV ONE (11:45)
[2019-06-05] MEDS ORDERED: DEXAMETHASONE 10 MG/ML VIAL IV ONE (12:15)
[2019-06-05] MEDS ORDERED: IOHEXOL-350 100 ML BOTTLE ONE (12:23)
[2019-06-05 14:30] VITALS: BP 130/78
== END 2019-06-05 14:30 | disposition home or self-care (01) ==
LOC: ER 10:47
DX: M54.9 Dorsalgia, unspecified (principal); R07.9 Chest pain, unspecified; R10.9 Unspecified abdominal pain; F41.9 Anxiety disorder, unspecified; E78.00 Pure hypercholesterolemia, unspecified; M32.9 Systemic lupus erythematosus, unspecified; Z88.6 Allergy status to analgesic agent; Z90.49 Acquired absence of other specified parts of digestive tract; Z90.710 Acquired absence of both cervix and uterus
CPT/HCPCS: 36415; 71045; 71275; 74174; 80053; 83880; 84484; 85025; 93005; 96374; 96375; 99284; J1100; J2060; J2405; Q9967

== ENCOUNTER 2019-07-12 08:10 | Emergency (ER) | payer MEDICAID ==
[~2019-07-12] VITALS: Ht 165.1 cm; Wt 62.0 kg
[2019-07-12] MEDS ORDERED: DICYCLOMINE 10 MG/5 ML ORAL SYR PO ONE (09:00)
[2019-07-12] MEDS ORDERED: LORAZEPAM 0.5MG TABLET PO ONE (09:00)
[2019-07-12] MEDS ORDERED: FAMOTIDINE 20MG TABLET PO ONE (09:00)
[2019-07-12] MEDS ORDERED: VISCOUS LIDOCAINE 2% 15 ML UDC PO ONE (09:00)
[2019-07-12] MEDS ORDERED: MAGNESIUM/ALUMINUM HYDROXIDE/SIMETHICONE 30ML UDC PO ONE (09:00)
[2019-07-12 11:00] VITALS: BP 131/65
== END 2019-07-12 11:10 | disposition home or self-care (01) ==
LOC: ER 08:43
DX: K29.70 Gastritis, unspecified, without bleeding (principal); M32.9 Systemic lupus erythematosus, unspecified; F41.9 Anxiety disorder, unspecified; K76.9 Liver disease, unspecified; Z88.5 Allergy status to narcotic agent; Z90.49 Acquired absence of other specified parts of digestive tract
CPT/HCPCS: 99284

== ENCOUNTER 2019-07-15 12:02 | Emergency (ER) | payer MEDICAID ==
[~2019-07-15] VITALS: Ht 165.1 cm; Wt 61.0 kg
[2019-07-15] MEDS: SODIUM CHLORIDE 0.9% 1,000 ML IV ONE (13:49)
[2019-07-15 13:53] LABS: CLARITY URINE CLEAR (CLEAR); COLOR URINE YELLOW (YELLOW); KETONES URINE NEGATIVE (NEGATIVE); LEUKOCYTE ESTERASE URINE NEGATIVE (NEGATIVE); NITRITE URINE NEGATIVE (NEGATIVE); OCCULT BLOOD URINE NEGATIVE (NEGATIVE); PH URINE 7.5 (4.5-8.0); PROTEIN URINE NEGATIVE (NEGATIVE); SPECIFIC GRAVITY URINE 1.015 (1.005-1.030); UROBILINOGEN URINE 0.2 E.U./dL (0.2-1.0)
[2019-07-15 14:09] LABS: BASOPHILS % 0.6 % (0.0-2.0); EOSINOPHILS % 1.3 % (0.0-5.0); HEMATOCRIT. 39.2 % (36.0-48.0); HEMOGLOBIN. 13.5 g/dL (12.0-16.0); LYMPHOCYTES % 34.5 % (20.0-50.0); MEAN CORPUSCULAR HEMOGLOBIN 28.9 pg (28.0-32.0); MEAN CORPUSCULAR VOLUME 84.1 fL (81.0-99.0); MEAN PLATELET VOLUME 7.2 fl (7.4-10.4); MONOCYTES % 9.4 % (2.0-8.0); NEUTROPHILS % 54.2 % (40.0-76.0); PLATELET 319 x1000/uL (130-400); RED BLOOD CELL COUNT 4.66 mill/uL (4.2-5.4); RED CELL DISTRIBUTION WIDTH 14.6 % (11.6-14.6)
[2019-07-15 14:13] LABS: CHLORIDE 105 mEq/L (98-107)
[2019-07-15] MEDS ORDERED: DIAZEPAM 5 MG/ML 2ML CPJ IV ONE (14:30)
[2019-07-15] MEDS: MAGNESIUM/ALUMINUM HYDROXIDE/SIMETHICONE 30ML UDC PO STA (15:01)
[2019-07-15] MEDS: VISCOUS LIDOCAINE 2% 15 ML UDC PO STA (15:01)
[2019-07-15] MEDS: DIAZEPAM 5 MG/ML 2ML CPJ IV NR (15:09)
[2019-07-15] MEDS: DIAZEPAM 5 MG TABLET PO STA (17:00)
[2019-07-15 17:05] VITALS: BP 150/75
== END 2019-07-15 17:16 | disposition home or self-care (01) ==
LOC: ER 12:02
DX: F41.9 Anxiety disorder, unspecified (principal); K29.70 Gastritis, unspecified, without bleeding; E78.5 Hyperlipidemia, unspecified; K21.9 Gastro-esophageal reflux disease without esophagitis; Z88.5 Allergy status to narcotic agent; Z79.899 Other long term (current) drug therapy; Z90.49 Acquired absence of other specified parts of digestive tract
CPT/HCPCS: 36415; 80053; 81003; 83605; 83690; 85025; 85610; 96361; 96374; 99284; J3360; J7030; Z7610

== ENCOUNTER 2019-07-31 10:00 | Emergency (ER) | payer MEDICAID ==
[~2019-07-31] VITALS: Ht 165.1 cm; Wt 61.0 kg
[2019-07-31] MEDS ORDERED: SODIUM CHLORIDE 0.9% 1,000 ML IV ONE (16:35)
[2019-07-31] MEDS ORDERED: LORAZEPAM 2MG/ML CPJ IV ONE (16:45)
[2019-07-31] MEDS ORDERED: FAMOTIDINE 20MG/2ML VIAL IV ONE (16:45)
[2019-07-31 17:15] LABS: BASOPHILS % 0.7 % (0.0-2.0); EOSINOPHILS % 1.6 % (0.0-5.0); LYMPHOCYTES % 34.3 % (20.0-50.0); MEAN CORPUSCULAR VOLUME 85.2 fL (81.0-99.0); MEAN PLATELET VOLUME 7.7 fl (7.4-10.4); MONOCYTES % 10.2 % (2.0-8.0); NEUTROPHILS % 53.2 % (40.0-76.0); PLATELET 296 x1000/uL (130-400); RED BLOOD CELL COUNT 4.82 mill/uL (4.2-5.4); RED CELL DISTRIBUTION WIDTH 14.8 % (11.6-14.6)
[2019-07-31 17:19] LABS: CHLORIDE 108 mEq/L (98-107)
[2019-07-31 17:21] LABS: PARTIAL THROMBOPLASTIN TIME 25.9 sec (23.4-31.0); PROTHROMBIN TIME 10.1 sec (9.6-11.0)
[2019-07-31 18:34] LABS: CLARITY URINE CLEAR (CLEAR); COLOR URINE YELLOW (YELLOW); KETONES URINE NEGATIVE (NEGATIVE); LEUKOCYTE ESTERASE URINE NEGATIVE (NEGATIVE); NITRITE URINE NEGATIVE (NEGATIVE); OCCULT BLOOD URINE NEGATIVE (NEGATIVE); PH URINE 5.5 (4.5-8.0); PROTEIN URINE NEGATIVE (NEGATIVE); SPECIFIC GRAVITY URINE 1.007 (1.005-1.030); UROBILINOGEN URINE 0.2 E.U./dL (0.2-1.0)
[2019-07-31 19:14] VITALS: BP 133/74
== END 2019-07-31 19:17 | disposition home or self-care (01) ==
LOC: ER 10:00
DX: K29.70 Gastritis, unspecified, without bleeding (principal); K21.9 Gastro-esophageal reflux disease without esophagitis; F41.9 Anxiety disorder, unspecified; E78.00 Pure hypercholesterolemia, unspecified; M32.9 Systemic lupus erythematosus, unspecified; K76.9 Liver disease, unspecified; Z90.49 Acquired absence of other specified parts of digestive tract; Z88.5 Allergy status to narcotic agent
CPT/HCPCS: 36415; 71045; 80053; 81003; 83690; 83880; 84484; 85025; 85610; 85730; 87086; 93005; 96361; 96374; 96375; 99284; J2060; J3490; J7030; Z7610

== ENCOUNTER 2019-08-29 10:39 | Emergency (ER) | payer MEDICAID ==
[~2019-08-29] VITALS: Ht 165.1 cm; Wt 61.0 kg
[2019-08-29] MEDS ORDERED: METHYLPREDNISOLONE SOD SUCC 125 MG/2 ML VIAL IV STA (15:57)
[2019-08-29] MEDS ORDERED: ONDANSETRON HCL 4MG/2ML INJ IV STA (15:57)
[2019-08-29] MEDS ORDERED: SODIUM CHLORIDE 0.9% 1,000 ML IV ONE (15:57)
[2019-08-29] MEDS ORDERED: MAGNESIUM/ALUMINUM HYDROXIDE/SIMETHICONE 30ML UDC PO ONE (16:00)
[2019-08-29] MEDS ORDERED: LEVOFLOXACIN 750MG PREMIX 150 ML IV ONE (16:00)
[2019-08-29] MEDS ORDERED: LORAZEPAM 2MG/ML CPJ IV ONE (16:00)
[2019-08-29] MEDS ORDERED: IPRATROPIUM/ALBUTEROL 0.5-3(2.5)MG/3ML NEB HHN ONE (16:00)
[2019-08-29] MEDS ORDERED: FAMOTIDINE 20MG/2ML VIAL IV ONE (16:00)
[2019-08-29 17:31] LABS: CHLORIDE 106 mEq/L (98-107)
[2019-08-29 17:33] LABS: BASOPHILS % 0.6 % (0.0-2.0); EOSINOPHILS % 1.3 % (0.0-5.0); HEMATOCRIT. 42.1 % (36.0-48.0); HEMOGLOBIN. 14.3 g/dL (12.0-16.0); LYMPHOCYTES % 34.7 % (20.0-50.0); MEAN CORPUSCULAR HEMOGLOBIN 29.1 pg (28.0-32.0); MEAN CORPUSCULAR VOLUME 85.4 fL (81.0-99.0); MEAN PLATELET VOLUME 7.8 fl (7.4-10.4); MONOCYTES % 8.6 % (2.0-8.0); NEUTROPHILS % 54.8 % (40.0-76.0); PLATELET 293 x1000/uL (130-400); RED BLOOD CELL COUNT 4.93 mill/uL (4.2-5.4); RED CELL DISTRIBUTION WIDTH 14.4 % (11.6-14.6)
[2019-08-29 17:36] LABS: ETHANOL BLOOD < 10 mg/dL
[2019-08-29 17:42] LABS: *AMPHETAMINES SCREEN URINE NEGATIVE (NEGATIVE); *BARBITURATES SCREEN URINE NEGATIVE (NEGATIVE); *BENZODIAZEPINES SCREEN URINE NEGATIVE (NEGATIVE); *COCAINE SCREEN URINE NEGATIVE (NEGATIVE)
[2019-08-29 17:43] LABS: CANNABINOID URINE SCREEN NEGATIVE (NEGATIVE); METHADONE URINE SCREEN NEGATIVE (NEGATIVE); OPIATES URINE SCREEN NEGATIVE (NEGATIVE); PHENCYCLIDINE URINE SCREEN NEGATIVE (NEGATIVE)
[2019-08-29 20:45] VITALS: BP 135/80
== END 2019-08-29 20:46 | disposition home or self-care (01) ==
LOC: ER 10:39
DX: J40 Bronchitis, not specified as acute or chronic (principal); R09.81 Nasal congestion; R05 Cough; K21.9 Gastro-esophageal reflux disease without esophagitis; E78.00 Pure hypercholesterolemia, unspecified; Z90.49 Acquired absence of other specified parts of digestive tract; Z90.710 Acquired absence of both cervix and uterus; Z79.899 Other long term (current) drug therapy
CPT/HCPCS: 36415; 71045; 80053; 80305; 80320; 83690; 83880; 84484; 85025; 87040; 87804; 93005; 94640; 96365; 96375; 99284; J1956; J2060; J2405; J2930; J3490; J7030; J7620; Z7610; G0480

== ENCOUNTER 2019-09-01 07:06 | Emergency (ER) | payer MEDICAID ==
[~2019-09-01] VITALS: Ht 152.4 cm; Wt 61.0 kg
[2019-09-01] MEDS ORDERED: KETOROLAC 30MG/ML VIAL IM ONE (08:15)
[2019-09-01 08:16] VITALS: BP 153/70
[2019-09-01] MEDS ORDERED: ACETAMINOPHEN 325MG TABLET PO NR (09:01)
== END 2019-09-01 09:30 | disposition home or self-care (01) ==
LOC: ER 07:06
DX: M25.531 Pain in right wrist (principal); K21.9 Gastro-esophageal reflux disease without esophagitis; E78.00 Pure hypercholesterolemia, unspecified; M32.9 Systemic lupus erythematosus, unspecified; F41.9 Anxiety disorder, unspecified; K76.9 Liver disease, unspecified; Z90.49 Acquired absence of other specified parts of digestive tract; Z88.5 Allergy status to narcotic agent
CPT/HCPCS: 73110; 96372; 99283; J1885

== ENCOUNTER 2019-09-11 00:19 | Emergency (ER) | payer MEDICAID ==
[~2019-09-11] VITALS: Ht 162.6 cm; Wt 61.0 kg
[2019-09-11] MEDS ORDERED: HYDROCODONE/ACETAMINOPHEN 10/325MG TABLET PO ONE (03:00)
[2019-09-11 05:45] VITALS: BP 158/81
[2019-09-11] MEDS ORDERED: KETOROLAC 60MG/2ML VIAL IM ONE (05:45)
== END 2019-09-11 05:45 | disposition home or self-care (01) ==
LOC: ER 00:19
DX: M32.9 Systemic lupus erythematosus, unspecified (principal); M79.602 Pain in left arm; E78.00 Pure hypercholesterolemia, unspecified; K76.9 Liver disease, unspecified; Z90.49 Acquired absence of other specified parts of digestive tract; Z98.51 Tubal ligation status; Z88.5 Allergy status to narcotic agent; Z85.9 Personal history of malignant neoplasm, unspecified
CPT/HCPCS: 76881; 93005; 96372; 99284; J1885

== ENCOUNTER 2019-09-30 08:31 | Emergency (ER) | payer MEDICAID ==
[~2019-09-30] VITALS: Ht 157.5 cm; Wt 62.0 kg
[2019-09-30] MEDS ORDERED: FAMOTIDINE 20MG/2ML VIAL IV ONE (10:15)
[2019-09-30] MEDS ORDERED: ONDANSETRON HCL 4MG/2ML INJ IV ONE (10:15)
[2019-09-30 10:17] LABS: BASOPHILS % 0.7 % (0.0-2.0); EOSINOPHILS % 0.7 % (0.0-5.0); HEMATOCRIT. 44.4 % (36.0-48.0); LYMPHOCYTES % 26.6 % (20.0-50.0); MEAN CORPUSCULAR HEMOGLOBIN 29.5 pg (28.0-32.0); MEAN CORPUSCULAR VOLUME 87.2 fL (81.0-99.0); MEAN PLATELET VOLUME 7.3 fl (7.4-10.4); MONOCYTES % 7.9 % (2.0-8.0); NEUTROPHILS % 64.1 % (40.0-76.0); PLATELET 314 x1000/uL (130-400); RED BLOOD CELL COUNT 5.09 mill/uL (4.2-5.4); RED CELL DISTRIBUTION WIDTH 14.7 % (11.6-14.6)
[2019-09-30 10:20] LABS: CHLORIDE 107 mEq/L (98-107)
[2019-09-30 10:21] LABS: PROTHROMBIN TIME 10.1 sec (9.6-11.0)
[2019-09-30] MEDS ORDERED: VISCOUS LIDOCAINE 2% 15 ML UDC MM ONE (11:00)
[2019-09-30] MEDS ORDERED: MAGNESIUM/ALUMINUM HYDROXIDE/SIMETHICONE 30ML UDC PO ONE (11:00)
[2019-09-30] MEDS ORDERED: LORAZEPAM 1MG TABLET PO ONE (11:00)
[2019-09-30 11:11] LABS: CLARITY URINE CLEAR (CLEAR); COLOR URINE YELLOW (YELLOW); KETONES URINE NEGATIVE (NEGATIVE); LEUKOCYTE ESTERASE URINE TRACE (NEGATIVE); NITRITE URINE NEGATIVE (NEGATIVE); OCCULT BLOOD URINE TRACE (NEGATIVE); PROTEIN URINE NEGATIVE (NEGATIVE); UROBILINOGEN URINE 0.2 E.U./dL (0.2-1.0)
[2019-09-30 12:56] VITALS: BP 141/72
== END 2019-09-30 13:51 | disposition home or self-care (01) ==
LOC: ER 08:31
DX: K29.00 Acute gastritis without bleeding (principal); F41.9 Anxiety disorder, unspecified; Z88.6 Allergy status to analgesic agent; Z79.899 Other long term (current) drug therapy; Z90.49 Acquired absence of other specified parts of digestive tract; E78.00 Pure hypercholesterolemia, unspecified
CPT/HCPCS: 36415; 80053; 81003; 83690; 84484; 85025; 85610; 93005; 96374; 96375; 99284; J2405; J3490; Z7610

== ENCOUNTER 2019-10-04 12:31 | Emergency (ER) | payer MEDICAID ==
[~2019-10-04] VITALS: Ht 162.6 cm; Wt 61.3 kg
[2019-10-04 14:55] LABS: CLARITY URINE CLEAR (CLEAR); COLOR URINE YELLOW (YELLOW); KETONES URINE NEGATIVE (NEGATIVE); LEUKOCYTE ESTERASE URINE TRACE (NEGATIVE); NITRITE URINE NEGATIVE (NEGATIVE); OCCULT BLOOD URINE NEGATIVE (NEGATIVE); PROTEIN URINE NEGATIVE (NEGATIVE); SPECIFIC GRAVITY URINE 1.015 (1.005-1.030); UROBILINOGEN URINE 0.2 E.U./dL (0.2-1.0)
[2019-10-04] MEDS ORDERED: VISCOUS LIDOCAINE 2% 15 ML UDC PO STA (14:55)
[2019-10-04] MEDS ORDERED: MAGNESIUM/ALUMINUM HYDROXIDE/SIMETHICONE 30ML UDC PO STA (14:55)
[2019-10-04] MEDS ORDERED: DICYCLOMINE 10 MG/5 ML ORAL SYR PO STA (14:55)
[2019-10-04] MEDS ORDERED: LORAZEPAM 0.5MG TABLET PO ONE (15:00)
[2019-10-04 15:42] LABS: BASOPHILS % 1.2 % (0.0-2.0); EOSINOPHILS % 0.5 % (0.0-5.0); HEMOGLOBIN. 14.9 g/dL (12.0-16.0); MEAN CORPUSCULAR HEMOGLOBIN 29.3 pg (28.0-32.0); MEAN CORPUSCULAR VOLUME 86.8 fL (81.0-99.0); MEAN PLATELET VOLUME 6.9 fl (7.4-10.4); MONOCYTES % 7.7 % (2.0-8.0); NEUTROPHILS % 59.6 % (40.0-76.0); PLATELET 256 x1000/uL (130-400); RED BLOOD CELL COUNT 5.07 mill/uL (4.2-5.4); RED CELL DISTRIBUTION WIDTH 14.1 % (11.6-14.6)
[2019-10-04 15:44] LABS: CHLORIDE 107 mEq/L (98-107)
[2019-10-04 16:21] VITALS: BP 156/85
== END 2019-10-04 16:50 | disposition home or self-care (01) ==
LOC: ER 12:31
DX: R10.13 Epigastric pain (principal); F41.9 Anxiety disorder, unspecified; E78.00 Pure hypercholesterolemia, unspecified; M32.9 Systemic lupus erythematosus, unspecified; Z85.9 Personal history of malignant neoplasm, unspecified; Z90.49 Acquired absence of other specified parts of digestive tract; Z88.5 Allergy status to narcotic agent; Z98.51 Tubal ligation status
CPT/HCPCS: 36415; 80053; 81003; 85025; 93005; 99284

== ENCOUNTER 2019-10-23 10:55 | Emergency (ER) | payer MEDICAID ==
[~2019-10-23] VITALS: Ht 162.6 cm; Wt 59.0 kg
[~2019-10-23 10:55] MED LIST changes: -MONT10TA24 PO; +MONT10TA26 PO
[2019-10-23] MEDS ORDERED: FAMOTIDINE 20MG TABLET PO STA (11:56)
[2019-10-23] MEDS ORDERED: MAGNESIUM/ALUMINUM HYDROXIDE/SIMETHICONE 30ML UDC PO STA (11:56)
[2019-10-23] MEDS ORDERED: VISCOUS LIDOCAINE 2% 15 ML UDC PO STA (11:56)
[2019-10-23] MEDS ORDERED: LORAZEPAM 1MG TABLET PO ONE (12:00)
[2019-10-23 12:12] LABS: HEMATOCRIT. 42.5 % (36.0-48.0); HEMOGLOBIN. 14.5 g/dL (12.0-16.0); MEAN CORPUSCULAR HEMOGLOBIN 29.8 pg (28.0-32.0); MEAN CORPUSCULAR VOLUME 87.1 fL (81.0-99.0); MEAN PLATELET VOLUME 6.6 fl (7.4-10.4); PLATELET 330 x1000/uL (130-400); RED BLOOD CELL COUNT 4.89 mill/uL (4.2-5.4); RED CELL DISTRIBUTION WIDTH 14.7 % (11.6-14.6)
[2019-10-23 12:19] LABS: CHLORIDE 107 mEq/L (98-107)
[2019-10-23 12:40] LABS: PLATELET ESTIMATE NORMAL
[2019-10-23 13:15] VITALS: BP 141/85
== END 2019-10-23 13:20 | disposition home or self-care (01) ==
LOC: ER 12:25
DX: K29.70 Gastritis, unspecified, without bleeding (principal); F41.9 Anxiety disorder, unspecified; E78.00 Pure hypercholesterolemia, unspecified; M32.9 Systemic lupus erythematosus, unspecified; Z85.9 Personal history of malignant neoplasm, unspecified; Z88.6 Allergy status to analgesic agent; Z90.49 Acquired absence of other specified parts of digestive tract; Z98.51 Tubal ligation status
CPT/HCPCS: 36415; 80053; 85025; 99284

== ENCOUNTER 2019-10-25 14:53 | Emergency (ER) | payer MEDICAID ==
[~2019-10-25] VITALS: Ht 162.6 cm; Wt 62.0 kg
[2019-10-25 16:46] LABS: HEMATOCRIT. 43.6 % (36.0-48.0); PLATELET 343 x1000/uL (130-400); RED BLOOD CELL COUNT 5.02 mill/uL (4.2-5.4); RED CELL DISTRIBUTION WIDTH 15.2 % (11.6-14.6)
[2019-10-25 16:56] LABS: CHLORIDE 105 mEq/L (98-107)
[2019-10-25 17:11] LABS: PLATELET ESTIMATE NORMAL
[2019-10-25] MEDS ORDERED: ONDANSETRON 4MG ODT PO STA (17:21)
[2019-10-25] MEDS ORDERED: VISCOUS LIDOCAINE 2% 15 ML UDC PO ONE (17:30)
[2019-10-25] MEDS ORDERED: MAGNESIUM/ALUMINUM HYDROXIDE/SIMETHICONE 30ML UDC PO ONE (17:30)
[2019-10-25 17:50] VITALS: BP 136/84
== END 2019-10-25 17:53 | disposition home or self-care (01) ==
LOC: ER 14:53
DX: R07.89 Other chest pain (principal); K29.70 Gastritis, unspecified, without bleeding; R51 Headache; F41.9 Anxiety disorder, unspecified; E78.00 Pure hypercholesterolemia, unspecified; M32.9 Systemic lupus erythematosus, unspecified; K76.9 Liver disease, unspecified; Z85.9 Personal history of malignant neoplasm, unspecified; Z90.49 Acquired absence of other specified parts of digestive tract; Z88.5 Allergy status to narcotic agent; Z98.51 Tubal ligation status
CPT/HCPCS: 36415; 71045; 80053; 81025; 83880; 84484; 85025; 93005; 99285; Q0162

== ENCOUNTER 2019-10-31 11:43 | Emergency (ER) | payer MEDICAID ==
[~2019-10-31] VITALS: Ht 162.6 cm; Wt 59.0 kg
[2019-10-31] MEDS ORDERED: MAGNESIUM/ALUMINUM HYDROXIDE/SIMETHICONE 30ML UDC PO ONE (15:30)
[2019-10-31] MEDS ORDERED: VISCOUS LIDOCAINE 2% 15 ML UDC PO ONE (15:30)
[2019-10-31] MEDS ORDERED: LORAZEPAM 1MG TABLET PO ONE (16:00)
[2019-10-31 17:24] VITALS: BP 117/83
== END 2019-10-31 17:25 | disposition home or self-care (01) ==
LOC: ER 11:43
DX: K21.9 Gastro-esophageal reflux disease without esophagitis (principal); R07.89 Other chest pain; E78.00 Pure hypercholesterolemia, unspecified; M32.9 Systemic lupus erythematosus, unspecified; Z90.49 Acquired absence of other specified parts of digestive tract; Z98.51 Tubal ligation status; Z87.19 Personal history of other diseases of the digestive system; Z79.899 Other long term (current) drug therapy; Z88.6 Allergy status to analgesic agent
CPT/HCPCS: 93005; 99284

== ENCOUNTER 2020-04-25 11:25 | Emergency (ER) | payer MEDICAID ==
[~2020-04-25] VITALS: Ht 165.1 cm; Wt 70.0 kg
[2020-04-25] MEDS ORDERED: MAGNESIUM/ALUMINUM HYDROXIDE/SIMETHICONE 30ML UDC PO STA (12:08)
[2020-04-25] MEDS ORDERED: SODIUM CHLORIDE 0.9% 1,000 ML IV ONE (12:08)
[2020-04-25] MEDS ORDERED: FAMOTIDINE 20MG/2ML VIAL IV STA (12:08)
[2020-04-25] MEDS ORDERED: ONDANSETRON HCL 4MG/2ML INJ IV ONE (12:15)
[2020-04-25] MEDS ORDERED: HYDROXYZINE 10 MG TABLET PO PRN (12:15)
[2020-04-25 12:35] LABS: CLARITY URINE CLEAR (CLEAR); COLOR URINE YELLOW (YELLOW); KETONES URINE NEGATIVE (NEGATIVE); LEUKOCYTE ESTERASE URINE TRACE (NEGATIVE); NITRITE URINE NEGATIVE (NEGATIVE); OCCULT BLOOD URINE 1+ (NEGATIVE); PROTEIN URINE NEGATIVE (NEGATIVE); SPECIFIC GRAVITY URINE 1.002 (1.005-1.030); UROBILINOGEN URINE 0.2 E.U./dL (0.2-1.0)
[2020-04-25 12:37] LABS: BASOPHILS % 0.6 % (0.0-2.0); HEMATOCRIT. 43.2 % (36.0-48.0); HEMOGLOBIN. 14.6 g/dL (12.0-16.0); LYMPHOCYTES % 27.5 % (20.0-50.0); MEAN CORPUSCULAR HEMOGLOBIN 31.3 pg (28.0-32.0); MEAN CORPUSCULAR VOLUME 92.7 fL (81.0-99.0); MEAN PLATELET VOLUME 7.5 fl (7.4-10.4); MONOCYTES % 7.8 % (2.0-8.0); NEUTROPHILS % 63.1 % (40.0-76.0); PLATELET 285 x1000/uL (130-400); RED BLOOD CELL COUNT 4.66 mill/uL (4.2-5.4); RED CELL DISTRIBUTION WIDTH 15.1 % (11.6-14.6)
[2020-04-25 12:40] LABS: CHLORIDE 108 mEq/L (98-107)
[2020-04-25 13:01] LABS: PROTHROMBIN TIME 10.6 sec (9.6-11.0)
[2020-04-25] MEDS ORDERED: LORAZEPAM 0.5MG TABLET PO ONE (15:30)
[2020-04-25 17:25] VITALS: BP 132/78
== END 2020-04-25 17:45 | disposition home or self-care (01) ==
LOC: ER 11:25
DX: F41.9 Anxiety disorder, unspecified (principal); R00.2 Palpitations; K29.70 Gastritis, unspecified, without bleeding; R11.0 Nausea; Z87.19 Personal history of other diseases of the digestive system; E78.00 Pure hypercholesterolemia, unspecified; Z90.49 Acquired absence of other specified parts of digestive tract; Z98.51 Tubal ligation status; Z85.9 Personal history of malignant neoplasm, unspecified; Z79.899 Other long term (current) drug therapy
CPT/HCPCS: 36415; 71045; 80053; 81003; 83690; 84484; 85025; 85610; 93005; 96361; 96374; 96375; 99285; J2405; J3490; J7030

== ENCOUNTER 2020-11-02 11:05 | Emergency (ER) | payer MEDICAID ==
[~2020-11-02] VITALS: Ht 162.6 cm; Wt 54.4 kg
[~2020-11-02 11:05] MED LIST changes: +LORA2ORA PO; -MONT10TA26 PO; +MONT10TA32 PO
[2020-11-02 12:11] LABS: BASOPHILS % 0.9 % (0.0-2.0); EOSINOPHILS % 1.3 % (0.0-5.0); HEMATOCRIT. 41.9 % (36.0-48.0); HEMOGLOBIN. 14.3 g/dL (12.0-16.0); LYMPHOCYTES % 29.1 % (20.0-50.0); MEAN CORPUSCULAR HEMOGLOBIN 30.5 pg (28.0-32.0); MEAN CORPUSCULAR VOLUME 89.2 fL (81.0-99.0); MEAN PLATELET VOLUME 7.4 fl (7.4-10.4); NEUTROPHILS % 57.7 % (40.0-76.0); PLATELET 319 x1000/uL (130-400)
[2020-11-02 12:16] LABS: CHLORIDE 107 mEq/L (98-107)
[2020-11-02] MEDS ORDERED: FAMOTIDINE 20MG/2ML VIAL IV STA (12:55)
[2020-11-02] MEDS ORDERED: MAGNESIUM/ALUMINUM HYDROXIDE/SIMETHICONE 30ML UDC PO STA (12:55)
[2020-11-02] MEDS ORDERED: LORAZEPAM 2MG/ML CPJ IV ONE (13:00)
[2020-11-02 14:00] VITALS: BP 133/76
[2020-11-02] MEDS ORDERED: LORA-249 MT (14:46)
[2020-11-02] MEDS ORDERED: PROT20 MT (15:10)
== END 2020-11-02 15:16 | disposition home or self-care (01) ==
LOC: ER 11:05
DX: R10.13 Epigastric pain (principal); F41.9 Anxiety disorder, unspecified; R11.0 Nausea; E78.00 Pure hypercholesterolemia, unspecified; K21.9 Gastro-esophageal reflux disease without esophagitis; Z90.49 Acquired absence of other specified parts of digestive tract; Z88.6 Allergy status to analgesic agent; Z79.899 Other long term (current) drug therapy; Z98.51 Tubal ligation status; Z98.890 Other specified postprocedural states
CPT/HCPCS: 36415; 71045; 80048; 84484; 85025; 85379; 93005; 96374; 96375; 99285; J2060; J3490

== ENCOUNTER 2020-11-19 17:38 | Emergency (ER) | payer MEDICAID ==
[~2020-11-19] VITALS: Ht 162.6 cm; Wt 55.0 kg
[~2020-11-19 17:38] MED LIST changes: +LORA-249 MT; +PROT20 MT
[2020-11-19 20:45] LABS: BASOPHILS % 0.7 % (0.0-2.0); EOSINOPHILS % 1.6 % (0.0-5.0); HEMATOCRIT. 42.5 % (36.0-48.0); HEMOGLOBIN. 13.9 g/dL (12.0-16.0); LYMPHOCYTES % 29.2 % (20.0-50.0); MEAN CORPUSCULAR HEMOGLOBIN 28.9 pg (28.0-32.0); MEAN CORPUSCULAR VOLUME 88.3 fL (81.0-99.0); MEAN PLATELET VOLUME 7.8 fl (7.4-10.4); MONOCYTES % 11.5 % (2.0-8.0); PLATELET 335 x1000/uL (130-400); RED BLOOD CELL COUNT 4.81 mill/uL (4.2-5.4); RED CELL DISTRIBUTION WIDTH 13.9 % (11.6-14.6)
[2020-11-19 20:49] LABS: CHLORIDE 105 mEq/L (98-107)
[2020-11-19] MEDS: ONDANSETRON 4MG ODT PO STA (21:11)
[2020-11-19] MEDS: DICYCLOMINE 10 MG/5 ML ORAL SYR PO STA (21:11)
[2020-11-19] MEDS: MAGNESIUM/ALUMINUM HYDROXIDE/SIMETHICONE 30ML UDC PO STA (21:11)
[2020-11-19] MEDS: LORAZEPAM 1MG TABLET PO ONE (22:16)
[2020-11-19 22:20] VITALS: BP 126/74
[2020-11-20] MEDS ORDERED: ALPRAZOLAM 0.25 MG TABLET PO ONE (01:15)
== END 2020-11-19 22:43 | disposition home or self-care (01) ==
LOC: ER 17:38
DX: R10.13 Epigastric pain (principal); E78.00 Pure hypercholesterolemia, unspecified; Z88.6 Allergy status to analgesic agent; Z79.899 Other long term (current) drug therapy; Z90.49 Acquired absence of other specified parts of digestive tract
CPT/HCPCS: 36415; 71045; 80053; 83880; 84484; 85025; 93005; 99285; Q0162

== ENCOUNTER 2021-04-08 21:35 | Emergency (ER) | payer MEDICAID ==
[~2021-04-08] VITALS: Ht 157.5 cm; Wt 50.0 kg
[~2021-04-08 21:35] MED LIST changes: +HYDR-3782 MT; +MAG355OR21 MT
[2021-04-08 22:20] VITALS: BP 147/77
== END 2021-04-09 01:00 | disposition left against medical advice (07) ==
LOC: ER 21:35
DX: Z53.21 Procedure and treatment not carried out due to patient leaving prior to being seen by health care provider (principal)

== ENCOUNTER 2021-04-18 18:17 | Emergency (ER) | payer MEDICAID, OTHER ==
[~2021-04-18] VITALS: Ht 157.5 cm; Wt 55.0 kg
[2021-04-18] MEDS ORDERED: MAGNESIUM/ALUMINUM HYDROXIDE/SIMETHICONE 30ML UDC PO STA (23:22)
[2021-04-18] MEDS ORDERED: LORAZEPAM 1MG TABLET PO ONE (23:30)
[2021-04-18] MEDS ORDERED: ONDANSETRON 4MG ODT PO ONE (23:30)
[2021-04-19 00:06] LABS: BASOPHILS % 0.5 % (0.0-2.0); EOSINOPHILS % 1.1 % (0.0-5.0); HEMATOCRIT. 39.9 % (36.0-48.0); HEMOGLOBIN. 13.5 g/dL (12.0-16.0); LYMPHOCYTES % 25.3 % (20.0-50.0); MEAN CORPUSCULAR HEMOGLOBIN 29.6 pg (28.0-32.0); MEAN CORPUSCULAR VOLUME 87.4 fL (81.0-99.0); MEAN PLATELET VOLUME 6.9 fl (7.4-10.4); MONOCYTES % 9.2 % (2.0-8.0); NEUTROPHILS % 63.9 % (40.0-76.0); PLATELET 348 x1000/uL (130-400); RED BLOOD CELL COUNT 4.57 mill/uL (4.2-5.4); RED CELL DISTRIBUTION WIDTH 15.1 % (11.6-14.6)
[2021-04-19 00:10] LABS: CHLORIDE 109 mEq/L (98-107)
[2021-04-19 01:20] VITALS: BP 116/71
== END 2021-04-19 01:25 | disposition home or self-care (01) ==
LOC: ER 19:20
DX: R10.13 Epigastric pain (principal); F41.9 Anxiety disorder, unspecified; E78.00 Pure hypercholesterolemia, unspecified; Z90.49 Acquired absence of other specified parts of digestive tract; Z79.899 Other long term (current) drug therapy
CPT/HCPCS: 36415; 80053; 83690; 85025; 99284; Q0162

== ENCOUNTER 2021-04-30 09:01 | Emergency (ER) | payer OTHER, MEDICAID ==
[~2021-04-30] VITALS: Ht 152.4 cm; Wt 65.0 kg
[2021-04-30] MEDS ORDERED: VISCOUS LIDOCAINE 2% 15 ML UDC MM STA (09:24)
[2021-04-30] MEDS ORDERED: MAGNESIUM/ALUMINUM HYDROXIDE/SIMETHICONE 30ML UDC PO STA (09:24)
[2021-04-30] MEDS ORDERED: FAMOTIDINE 20MG/2ML VIAL IV ONE (09:30)
[2021-04-30] MEDS ORDERED: LORAZEPAM 2MG/ML CPJ IV ONE (09:30)
[2021-04-30] MEDS ORDERED: ONDANSETRON HCL 4MG/2ML INJ IV ONE (09:45)
[2021-04-30 09:53] LABS: BASOPHILS % 0.8 % (0.0-2.0); EOSINOPHILS % 2.2 % (0.0-5.0); HEMATOCRIT. 40.9 % (36.0-48.0); HEMOGLOBIN. 13.6 g/dL (12.0-16.0); LYMPHOCYTES % 27.6 % (20.0-50.0); MEAN CORPUSCULAR HEMOGLOBIN 29.2 pg (28.0-32.0); MEAN CORPUSCULAR VOLUME 87.6 fL (81.0-99.0); MEAN PLATELET VOLUME 7.3 fl (7.4-10.4); MONOCYTES % 12.6 % (2.0-8.0); NEUTROPHILS % 56.8 % (40.0-76.0); PLATELET 326 x1000/uL (130-400); RED BLOOD CELL COUNT 4.66 mill/uL (4.2-5.4); RED CELL DISTRIBUTION WIDTH 14.9 % (11.6-14.6)
[2021-04-30 09:58] LABS: CHLORIDE 110 mEq/L (98-107)
[2021-04-30 10:00] LABS: PROTHROMBIN TIME 10.3 sec (9.6-11.0)
[2021-04-30 10:03] VITALS: BP 143/78
[2021-04-30 10:05] LABS: CLARITY URINE CLEAR (CLEAR); COLOR URINE YELLOW (YELLOW); KETONES URINE NEGATIVE (NEGATIVE); LEUKOCYTE ESTERASE URINE 2+ (NEGATIVE); NITRITE URINE NEGATIVE (NEGATIVE); OCCULT BLOOD URINE TRACE (NEGATIVE); PROTEIN URINE NEGATIVE (NEGATIVE); SPECIFIC GRAVITY URINE 1.018 (1.005-1.030); UROBILINOGEN URINE 0.2 E.U./dL (0.2-1.0)
[2021-04-30] MEDS ORDERED: OMEP20CA14 MT (11:46)
[2021-04-30] MEDS ORDERED: LORA-249 MT (11:46)
== END 2021-04-30 12:01 | disposition home or self-care (01) ==
LOC: ER 09:01
DX: R10.13 Epigastric pain (principal); R07.89 Other chest pain; F41.9 Anxiety disorder, unspecified; I10 Essential (primary) hypertension; K21.9 Gastro-esophageal reflux disease without esophagitis; E78.00 Pure hypercholesterolemia, unspecified; M32.9 Systemic lupus erythematosus, unspecified; K76.9 Liver disease, unspecified; Z90.49 Acquired absence of other specified parts of digestive tract; Z87.19 Personal history of other diseases of the digestive system; Z88.5 Allergy status to narcotic agent
CPT/HCPCS: 36415; 71045; 80053; 81003; 83690; 84484; 85025; 85610; 93005; 96374; 96375; 99285; J2060; J2405; J3490

== ENCOUNTER 2021-05-06 11:05 | Emergency (ER) | payer MEDICAID, OTHER ==
[~2021-05-06] VITALS: Ht 160 cm; Wt 60.0 kg
[~2021-05-06 11:05] MED LIST changes: +OMEP20CA14 MT
[2021-05-06] MEDS ORDERED: ONDANSETRON HCL 4MG/2ML INJ IV STA (12:19)
[2021-05-06] MEDS ORDERED: MAGNESIUM/ALUMINUM HYDROXIDE/SIMETHICONE 30ML UDC PO STA (12:19)
[2021-05-06] MEDS ORDERED: FAMOTIDINE 20MG/2ML VIAL IV STA (12:19)
[2021-05-06 12:45] LABS: BASOPHILS % 0.5 % (0.0-2.0); EOSINOPHILS % 1.2 % (0.0-5.0); HEMATOCRIT. 41.3 % (36.0-48.0); HEMOGLOBIN. 14.1 g/dL (12.0-16.0); LYMPHOCYTES % 25.1 % (20.0-50.0); MEAN CORPUSCULAR HEMOGLOBIN 29.7 pg (28.0-32.0); MEAN CORPUSCULAR VOLUME 86.7 fL (81.0-99.0); MEAN PLATELET VOLUME 7.1 fl (7.4-10.4); MONOCYTES % 9.4 % (2.0-8.0); NEUTROPHILS % 63.8 % (40.0-76.0); PLATELET 345 x1000/uL (130-400); RED BLOOD CELL COUNT 4.77 mill/uL (4.2-5.4)
[2021-05-06 12:46] LABS: CLARITY URINE CLEAR (CLEAR); COLOR URINE YELLOW (YELLOW); KETONES URINE NEGATIVE (NEGATIVE); LEUKOCYTE ESTERASE URINE NEGATIVE (NEGATIVE); NITRITE URINE NEGATIVE (NEGATIVE); OCCULT BLOOD URINE NEGATIVE (NEGATIVE); PH URINE 7.5 (4.5-8.0); PROTEIN URINE NEGATIVE (NEGATIVE); SPECIFIC GRAVITY URINE 1.012 (1.005-1.030); UROBILINOGEN URINE 0.2 E.U./dL (0.2-1.0)
[2021-05-06 12:54] LABS: CHLORIDE 108 mEq/L (98-107)
[2021-05-06] MEDS ORDERED: LORAZEPAM 1MG TABLET PO ONE (13:00)
[2021-05-06] MEDS ORDERED: IOHEXOL-300 100 ML BOTTLE ONE (14:46)
[2021-05-06] MEDS ORDERED: SIME125C MT (14:56)
[2021-05-06] MEDS ORDERED: FAMO40TA70 MT (14:56)
[2021-05-06 15:52] VITALS: BP 118/68
== END 2021-05-06 16:17 | disposition home or self-care (01) ==
LOC: ER 11:05
DX: R10.13 Epigastric pain (principal); E78.00 Pure hypercholesterolemia, unspecified; Z79.899 Other long term (current) drug therapy; Z88.6 Allergy status to analgesic agent; Z90.49 Acquired absence of other specified parts of digestive tract; Z98.890 Other specified postprocedural states
CPT/HCPCS: 36415; 74177; 80053; 81003; 83690; 85025; 93005; 96374; 96375; 99285; J2405; J3490; Q9967

== ENCOUNTER 2021-06-30 15:23 | Emergency (ER) | payer MEDICAID ==
[~2021-06-30] VITALS: Ht 154.9 cm; Wt 59.0 kg
[~2021-06-30 15:23] MED LIST changes: +FAMO40TA70 MT; +SIME125C MT
[2021-06-30 16:26] LABS: BASOPHILS % 0.6 % (0.0-2.0); EOSINOPHILS % 1.1 % (0.0-5.0); HEMATOCRIT. 39.3 % (36.0-48.0); HEMOGLOBIN. 13.5 g/dL (12.0-16.0); LYMPHOCYTES % 30.3 % (20.0-50.0); MEAN CORPUSCULAR HEMOGLOBIN 29.3 pg (28.0-32.0); MEAN CORPUSCULAR VOLUME 85.5 fL (81.0-99.0); MEAN PLATELET VOLUME 7.3 fl (7.4-10.4); MONOCYTES % 10.3 % (2.0-8.0); NEUTROPHILS % 57.7 % (40.0-76.0); PLATELET 397 x1000/uL (130-400); RED CELL DISTRIBUTION WIDTH 13.9 % (11.6-14.6)
[2021-06-30 16:34] LABS: CHLORIDE 104 mEq/L (98-107)
[2021-06-30] MEDS ORDERED: LORAZEPAM 2MG/ML CPJ IV ONE (17:00)
[2021-06-30] MEDS ORDERED: FAMOTIDINE 20MG/2ML VIAL IV ONE (17:00)
[2021-06-30] MEDS ORDERED: SODIUM CHLORIDE 0.9% 1,000 ML IV ONE (17:00)
[2021-06-30] MEDS ORDERED: ONDANSETRON HCL 4MG/2ML INJ IV ONE (17:00)
[2021-06-30] MEDS ORDERED: MAGNESIUM/ALUMINUM HYDROXIDE/SIMETHICONE 30ML UDC PO ONE ×2 (17:30→19:00)
[2021-06-30] MEDS ORDERED: FAMO20TA8 MT (18:55)
[2021-06-30] MEDS ORDERED: MAG-55 MT (18:55)
[2021-06-30 19:30] VITALS: BP 150/62
== END 2021-06-30 19:56 | disposition home or self-care (01) ==
LOC: ER 15:23
DX: K21.9 Gastro-esophageal reflux disease without esophagitis (principal); R00.0 Tachycardia, unspecified; F41.9 Anxiety disorder, unspecified; M19.90 Unspecified osteoarthritis, unspecified site; E78.00 Pure hypercholesterolemia, unspecified; K76.9 Liver disease, unspecified; M32.9 Systemic lupus erythematosus, unspecified; Z88.5 Allergy status to narcotic agent; Z90.49 Acquired absence of other specified parts of digestive tract
CPT/HCPCS: 36415; 71045; 80053; 83880; 84484; 85025; 93005; 96361; 96374; 96375; 99285; J2060; J2405; J3490; J7030

== ENCOUNTER 2021-07-19 08:40 | Emergency (ER) | payer MEDICAID ==
[~2021-07-19] VITALS: Ht 152.4 cm; Wt 59.0 kg
[~2021-07-19 08:40] MED LIST changes: +FAMO20TA8 MT; +MAG-55 MT
[2021-07-19] MEDS ORDERED: FAMOTIDINE 20MG/2ML VIAL IV STA (08:50)
[2021-07-19] MEDS ORDERED: VISCOUS LIDOCAINE 2% 15 ML UDC MM STA (09:09)
[2021-07-19] MEDS ORDERED: MAGNESIUM/ALUMINUM HYDROXIDE/SIMETHICONE 30ML UDC PO STA (09:09)
[2021-07-19] MEDS ORDERED: ONDANSETRON HCL 4MG/2ML INJ IV STA (09:09)
[2021-07-19] MEDS ORDERED: SODIUM CHLORIDE 0.9% 1,000 ML IV ONE (09:15)
[2021-07-19] MEDS ORDERED: LORAZEPAM 2MG/ML CPJ IV ONE (09:15)
[2021-07-19 09:38] LABS: BASOPHILS % 0.5 % (0.0-2.0); HEMATOCRIT. 42.3 % (36.0-48.0); LYMPHOCYTES % 30.5 % (20.0-50.0); MEAN CORPUSCULAR HEMOGLOBIN 28.5 pg (28.0-32.0); MEAN CORPUSCULAR VOLUME 86.4 fL (81.0-99.0); MEAN PLATELET VOLUME 7.2 fl (7.4-10.4); MONOCYTES % 7.2 % (2.0-8.0); NEUTROPHILS % 60.8 % (40.0-76.0); PLATELET 344 x1000/uL (130-400); RED CELL DISTRIBUTION WIDTH 14.3 % (11.6-14.6)
[2021-07-19 09:43] LABS: CHLORIDE 107 mEq/L (98-107)
[2021-07-19 09:52] LABS: ETHANOL BLOOD < 10 mg/dL
[2021-07-19 10:41] LABS: CLARITY URINE CLEAR (CLEAR); COLOR URINE YELLOW (YELLOW); KETONES URINE NEGATIVE (NEGATIVE); LEUKOCYTE ESTERASE URINE 1+ (NEGATIVE); NITRITE URINE NEGATIVE (NEGATIVE); OCCULT BLOOD URINE NEGATIVE (NEGATIVE); PROTEIN URINE NEGATIVE (NEGATIVE); SPECIFIC GRAVITY URINE 1.015 (1.005-1.030); UROBILINOGEN URINE 0.2 E.U./dL (0.2-1.0)
[2021-07-19 10:49] LABS: *AMPHETAMINES SCREEN URINE NEGATIVE (NEGATIVE); *BARBITURATES SCREEN URINE NEGATIVE (NEGATIVE); *BENZODIAZEPINES SCREEN URINE NEGATIVE (NEGATIVE); *COCAINE SCREEN URINE NEGATIVE (NEGATIVE)
[2021-07-19 10:50] LABS: CANNABINOID URINE SCREEN NEGATIVE (NEGATIVE); METHADONE URINE SCREEN NEGATIVE (NEGATIVE); OPIATES URINE SCREEN NEGATIVE (NEGATIVE); PHENCYCLIDINE URINE SCREEN NEGATIVE (NEGATIVE)
[2021-07-19] MEDS ORDERED: OMEP10CA5 MT (11:35)
[2021-07-19 12:16] VITALS: BP 133/77
== END 2021-07-19 12:24 | disposition home or self-care (01) ==
LOC: ER 08:40
DX: R10.13 Epigastric pain (principal); R07.89 Other chest pain; E78.00 Pure hypercholesterolemia, unspecified; Z88.6 Allergy status to analgesic agent; Z79.899 Other long term (current) drug therapy; Z98.890 Other specified postprocedural states
CPT/HCPCS: 36415; 71045; 80053; 80305; 80320; 81003; 83690; 84484; 85025; 93005; 96361; 96374; 96375; 99285; J2060; J2405; J3490; J7030; G0480

== ENCOUNTER 2021-08-06 09:04 | Emergency (ER) | payer MEDICAID ==
[~2021-08-06] VITALS: Ht 160 cm; Wt 64.0 kg
[~2021-08-06 09:04] MED LIST changes: +OMEP10CA5 MT
[2021-08-06] MEDS ORDERED: MAGNESIUM/ALUMINUM HYDROXIDE/SIMETHICONE 30ML UDC PO STA (09:37)
[2021-08-06] MEDS ORDERED: LORAZEPAM 2MG/ML CPJ IV ONE ×2 (09:45→10:15)
[2021-08-06 10:02] LABS: BASOPHILS % 0.6 % (0.0-2.0); EOSINOPHILS % 1.9 % (0.0-5.0); HEMATOCRIT. 39.6 % (36.0-48.0); HEMOGLOBIN. 13.3 g/dL (12.0-16.0); LYMPHOCYTES % 30.6 % (20.0-50.0); MEAN CORPUSCULAR HEMOGLOBIN 28.7 pg (28.0-32.0); MEAN CORPUSCULAR VOLUME 85.3 fL (81.0-99.0); MEAN PLATELET VOLUME 7.1 fl (7.4-10.4); MONOCYTES % 9.9 % (2.0-8.0); PLATELET 330 x1000/uL (130-400); RED BLOOD CELL COUNT 4.64 mill/uL (4.2-5.4); RED CELL DISTRIBUTION WIDTH 14.3 % (11.6-14.6)
[2021-08-06 10:07] LABS: CLARITY URINE CLEAR (CLEAR); COLOR URINE YELLOW (YELLOW); KETONES URINE NEGATIVE (NEGATIVE); LEUKOCYTE ESTERASE URINE TRACE (NEGATIVE); NITRITE URINE NEGATIVE (NEGATIVE); OCCULT BLOOD URINE 1+ (NEGATIVE); PROTEIN URINE NEGATIVE (NEGATIVE); SPECIFIC GRAVITY URINE 1.013 (1.005-1.030); UROBILINOGEN URINE 0.2 E.U./dL (0.2-1.0)
[2021-08-06 10:08] LABS: CHLORIDE 108 mEq/L (98-107)
[2021-08-06] MEDS ORDERED: FAMOTIDINE 20MG/2ML VIAL IV ONE (10:45)
[2021-08-06] MEDS ORDERED: ONDANSETRON HCL 4MG/2ML INJ IV ONE (10:45)
[2021-08-06] MEDS ORDERED: IOHEXOL-300 100 ML BOTTLE ONE (12:36)
[2021-08-06] MEDS ORDERED: AZIT500T3 MT (13:07)
[2021-08-06] MEDS ORDERED: ONDA4TAB5 MT (13:18)
[2021-08-06 13:26] VITALS: BP 109/75
== END 2021-08-06 13:34 | disposition home or self-care (01) ==
LOC: ER 09:04
DX: K29.70 Gastritis, unspecified, without bleeding (principal); J18.9 Pneumonia, unspecified organism; F41.9 Anxiety disorder, unspecified; I10 Essential (primary) hypertension; M32.9 Systemic lupus erythematosus, unspecified; M19.90 Unspecified osteoarthritis, unspecified site; Z90.49 Acquired absence of other specified parts of digestive tract; Z88.5 Allergy status to narcotic agent
CPT/HCPCS: 36415; 74177; 80048; 80076; 81003; 83690; 84484; 85025; 96374; 96375; 96376; 99285; J2060; J2405; J3490; Q9967

== ENCOUNTER 2021-08-14 10:19 | Emergency (ER) | payer MEDICAID ==
[~2021-08-14] VITALS: Ht 162.6 cm; Wt 54.0 kg
[~2021-08-14 10:19] MED LIST changes: +AZIT500T3 MT; +ONDA4TAB5 MT
[2021-08-14 10:22] VITALS: BP 135/54
[2021-08-14 13:55] LABS: BASOPHILS % 0.5 % (0.0-2.0); EOSINOPHILS % 1.4 % (0.0-5.0); HEMATOCRIT. 40.5 % (36.0-48.0); HEMOGLOBIN. 13.4 g/dL (12.0-16.0); LYMPHOCYTES % 27.8 % (20.0-50.0); MEAN CORPUSCULAR HEMOGLOBIN 28.7 pg (28.0-32.0); MEAN CORPUSCULAR VOLUME 86.7 fL (81.0-99.0); MEAN PLATELET VOLUME 7.2 fl (7.4-10.4); MONOCYTES % 10.1 % (2.0-8.0); NEUTROPHILS % 60.2 % (40.0-76.0); PLATELET 351 x1000/uL (130-400); RED BLOOD CELL COUNT 4.67 mill/uL (4.2-5.4); RED CELL DISTRIBUTION WIDTH 14.7 % (11.6-14.6)
[2021-08-14 14:01] LABS: CHLORIDE 110 mEq/L (98-107)
[2021-08-14] MEDS ORDERED: VISCOUS LIDOCAINE 2% 15 ML UDC PO ONE (16:30)
[2021-08-14] MEDS ORDERED: LORAZEPAM 0.5MG TABLET PO ONE (16:45)
[2021-08-14] MEDS: MAGNESIUM/ALUMINUM HYDROXIDE/SIMETHICONE 30ML UDC PO NR ×2 (16:59→17:40)
[2021-08-14] MEDS: FAMOTIDINE 20MG TABLET PO NR ×2 (16:59→17:40)
== END 2021-08-14 18:08 | disposition home or self-care (01) ==
LOC: ER 10:19
DX: K21.9 Gastro-esophageal reflux disease without esophagitis (principal); F41.9 Anxiety disorder, unspecified; E78.00 Pure hypercholesterolemia, unspecified; Z90.49 Acquired absence of other specified parts of digestive tract; Z79.899 Other long term (current) drug therapy
CPT/HCPCS: 36415; 71045; 80053; 83880; 84443; 84484; 85025; 93005; 99285

== ENCOUNTER 2021-09-03 10:08 | Emergency (ER) | payer MEDICAID ==
[~2021-09-03] VITALS: Ht 160 cm; Wt 61.0 kg
[2021-09-03] MEDS ORDERED: MAGNESIUM/ALUMINUM HYDROXIDE/SIMETHICONE 30ML UDC PO ONE (10:45)
[2021-09-03] MEDS ORDERED: FAMOTIDINE 20MG TABLET PO ONE (10:45)
[2021-09-03] MEDS ORDERED: VISCOUS LIDOCAINE 2% 15 ML UDC PO ONE (10:45)
[2021-09-03 11:44] LABS: BASOPHILS % 0.9 % (0.0-2.0); EOSINOPHILS % 1.3 % (0.0-5.0); HEMATOCRIT. 39.7 % (36.0-48.0); HEMOGLOBIN. 13.3 g/dL (12.0-16.0); LYMPHOCYTES % 21.2 % (20.0-50.0); MEAN CORPUSCULAR HEMOGLOBIN 28.3 pg (28.0-32.0); MEAN CORPUSCULAR VOLUME 84.7 fL (81.0-99.0); MEAN PLATELET VOLUME 7.1 fl (7.4-10.4); MONOCYTES % 8.4 % (2.0-8.0); NEUTROPHILS % 68.2 % (40.0-76.0); PLATELET 334 x1000/uL (130-400); RED BLOOD CELL COUNT 4.68 mill/uL (4.2-5.4); RED CELL DISTRIBUTION WIDTH 15.3 % (11.6-14.6)
[2021-09-03 11:48] LABS: CHLORIDE 107 mEq/L (98-107)
[2021-09-03] MEDS ORDERED: MAG-55 MT (12:45)
[2021-09-03] MEDS ORDERED: FAMO-135 MT (12:45)
[2021-09-03] MEDS ORDERED: LORAZEPAM 0.5MG TABLET PO ONE (13:15)
[2021-09-03 13:29] VITALS: BP 121/59
== END 2021-09-03 13:32 | disposition home or self-care (01) ==
LOC: ER 10:30
DX: K21.9 Gastro-esophageal reflux disease without esophagitis (principal); F41.9 Anxiety disorder, unspecified; M32.9 Systemic lupus erythematosus, unspecified; E78.00 Pure hypercholesterolemia, unspecified; M19.90 Unspecified osteoarthritis, unspecified site; K76.9 Liver disease, unspecified; Z90.49 Acquired absence of other specified parts of digestive tract; Z88.5 Allergy status to narcotic agent
CPT/HCPCS: 36415; 80053; 84484; 85025; 93005; 99284

== ENCOUNTER 2021-09-24 09:57 | Emergency (ER) | payer MEDICAID ==
[~2021-09-24] VITALS: Ht 165.1 cm; Wt 55.0 kg
[~2021-09-24 09:57] MED LIST changes: +FAMO-135 MT
[2021-09-24] MEDS ORDERED: MAGNESIUM/ALUMINUM HYDROXIDE/SIMETHICONE 30ML UDC PO STA (10:06)
[2021-09-24] MEDS ORDERED: VISCOUS LIDOCAINE 2% 15 ML UDC PO STA (10:06)
[2021-09-24 11:14] LABS: BASOPHILS % 0.9 % (0.0-2.0); HEMATOCRIT. 42.1 % (36.0-48.0); HEMOGLOBIN. 13.9 g/dL (12.0-16.0); LYMPHOCYTES % 24.3 % (20.0-50.0); MEAN CORPUSCULAR VOLUME 84.8 fL (81.0-99.0); MEAN PLATELET VOLUME 7.5 fl (7.4-10.4); MONOCYTES % 7.9 % (2.0-8.0); NEUTROPHILS % 65.9 % (40.0-76.0); PLATELET 315 x1000/uL (130-400); RED BLOOD CELL COUNT 4.96 mill/uL (4.2-5.4); RED CELL DISTRIBUTION WIDTH 14.9 % (11.6-14.6)
[2021-09-24 11:22] LABS: CHLORIDE 106 mEq/L (98-107)
[2021-09-24 12:09] LABS: CLARITY URINE CLEAR (CLEAR); COLOR URINE YELLOW (YELLOW); KETONES URINE NEGATIVE (NEGATIVE); LEUKOCYTE ESTERASE URINE 1+ (NEGATIVE); NITRITE URINE NEGATIVE (NEGATIVE); OCCULT BLOOD URINE TRACE (NEGATIVE); PROTEIN URINE NEGATIVE (NEGATIVE); SPECIFIC GRAVITY URINE 1.009 (1.005-1.030); UROBILINOGEN URINE 0.2 E.U./dL (0.2-1.0)
[2021-09-24] MEDS ORDERED: FAMOTIDINE 20MG TABLET PO ONE (12:45)
[2021-09-24] MEDS ORDERED: LORAZEPAM 1MG TABLET PO ONE (12:45)
[2021-09-24] MEDS ORDERED: LORA-249 MT (13:06)
[2021-09-24] MEDS ORDERED: OMEP40CA20 MT (13:06)
[2021-09-24 13:15] VITALS: BP 139/71
== END 2021-09-24 14:06 | disposition home or self-care (01) ==
LOC: ER 10:02
DX: R10.9 Unspecified abdominal pain (principal); F41.9 Anxiety disorder, unspecified; E78.00 Pure hypercholesterolemia, unspecified; M32.9 Systemic lupus erythematosus, unspecified; K76.9 Liver disease, unspecified; M19.90 Unspecified osteoarthritis, unspecified site; Z88.5 Allergy status to narcotic agent; Z90.49 Acquired absence of other specified parts of digestive tract
CPT/HCPCS: 36415; 71045; 80053; 81003; 85025; 93005; 99285

== ENCOUNTER 2021-10-02 09:03 | Emergency (ER) | payer MEDICAID ==
[~2021-10-02] VITALS: Ht 162.6 cm; Wt 55.0 kg
[~2021-10-02 09:03] MED LIST changes: +OMEP40CA20 MT
[2021-10-02] MEDS ORDERED: MAGNESIUM/ALUMINUM HYDROXIDE/SIMETHICONE 30ML UDC PO STA (09:41)
[2021-10-02] MEDS ORDERED: VISCOUS LIDOCAINE 2% 15 ML UDC PO STA (09:41)
[2021-10-02] MEDS ORDERED: LORAZEPAM 1MG TABLET PO ONE (09:45)
[2021-10-02] MEDS ORDERED: FAMOTIDINE 20MG TABLET PO ONE (09:45)
[2021-10-02 10:38] LABS: BASOPHILS % 0.9 % (0.0-2.0); HEMATOCRIT. 40.7 % (36.0-48.0); HEMOGLOBIN. 13.8 g/dL (12.0-16.0); LYMPHOCYTES % 33.7 % (20.0-50.0); MEAN CORPUSCULAR VOLUME 85.6 fL (81.0-99.0); MEAN PLATELET VOLUME 7.2 fl (7.4-10.4); MONOCYTES % 9.8 % (2.0-8.0); NEUTROPHILS % 54.6 % (40.0-76.0); PLATELET 336 x1000/uL (130-400); RED BLOOD CELL COUNT 4.75 mill/uL (4.2-5.4); RED CELL DISTRIBUTION WIDTH 14.9 % (11.6-14.6)
[2021-10-02 10:47] LABS: CHLORIDE 109 mEq/L (98-107)
[2021-10-02] MEDS ORDERED: LORA-250 MT (11:27)
[2021-10-02] MEDS ORDERED: FAMO-135 MT (11:27)
[2021-10-02] MEDS ORDERED: MAG-55 MT (11:27)
[2021-10-02 11:50] VITALS: BP 131/66
[2021-10-02] MEDS ORDERED: ONDA4TAB5 MT (12:06)
== END 2021-10-02 11:59 | disposition home or self-care (01) ==
LOC: ER 09:19
DX: K29.70 Gastritis, unspecified, without bleeding (principal); F41.9 Anxiety disorder, unspecified; Z90.49 Acquired absence of other specified parts of digestive tract; Z79.899 Other long term (current) drug therapy
CPT/HCPCS: 36415; 80053; 84484; 85025; 99284

== ENCOUNTER 2021-11-02 09:19 | Emergency (ER) | payer MEDICAID, OTHER ==
[~2021-11-02] VITALS: Ht 165.1 cm; Wt 79.0 kg
[~2021-11-02 09:19] MED LIST changes: +LORA-250 MT
[2021-11-02 09:26] VITALS: BP 139/71
[2021-11-02] MEDS ORDERED: ONDANSETRON 4MG ODT PO STA (13:23)
[2021-11-02] MEDS ORDERED: MAGNESIUM/ALUMINUM HYDROXIDE/SIMETHICONE 30ML UDC PO STA (13:23)
[2021-11-02] MEDS ORDERED: VISCOUS LIDOCAINE 2% 15 ML UDC PO STA (13:23)
[2021-11-02] MEDS ORDERED: OMEP40CA20 MT (13:35)
[2021-11-02] MEDS ORDERED: MAG355OR20 PO (13:35)
[2021-11-02] MEDS ORDERED: ONDA4TAB5 MT (13:35)
== END 2021-11-02 14:10 | disposition home or self-care (01) ==
LOC: ER 09:19
DX: K29.00 Acute gastritis without bleeding (principal); K29.50 Unspecified chronic gastritis without bleeding; F41.9 Anxiety disorder, unspecified; I10 Essential (primary) hypertension; K21.9 Gastro-esophageal reflux disease without esophagitis; M32.9 Systemic lupus erythematosus, unspecified; Z88.6 Allergy status to analgesic agent; Z90.49 Acquired absence of other specified parts of digestive tract; Z98.51 Tubal ligation status; Z98.890 Other specified postprocedural states
CPT/HCPCS: 93005; 99284; Q0162

== ENCOUNTER 2022-01-06 08:48 | Emergency (ER) | payer MEDICAID, OTHER ==
[~2022-01-06] VITALS: Ht 157.5 cm; Wt 59.0 kg
[~2022-01-06 08:48] MED LIST changes: +MAG355OR20 PO
[2022-01-06 09:08] VITALS: BP 129/77
[2022-01-06 09:45] LABS: HEMATOCRIT. 39.6 % (36.0-48.0); HEMOGLOBIN. 13.1 g/dL (12.0-16.0); MEAN CORPUSCULAR VOLUME 84.9 fL (81.0-99.0); PLATELET 381 x1000/uL (130-400); RED BLOOD CELL COUNT 4.67 mill/uL (4.2-5.4); RED CELL DISTRIBUTION WIDTH 14.8 % (11.6-14.6)
[2022-01-06 09:53] LABS: CHLORIDE 110 mEq/L (98-107)
[2022-01-06 10:11] LABS: PLATELET ESTIMATE NORMAL
[2022-01-06] MEDS ORDERED: VISCOUS LIDOCAINE 2% 15 ML UDC PO STA (10:32)
[2022-01-06] MEDS ORDERED: MAGNESIUM/ALUMINUM HYDROXIDE/SIMETHICONE 30ML UDC PO STA (10:32)
[2022-01-06] MEDS ORDERED: ONDANSETRON 4MG ODT PO STA (10:32)
[2022-01-06] MEDS ORDERED: FAMOTIDINE 20MG TABLET PO ONE (10:45)
[2022-01-06] MEDS ORDERED: LORAZEPAM 0.5MG TABLET PO ONE (10:45)
[2022-01-06] MEDS ORDERED: MAG-55 MT (11:26)
[2022-01-06] MEDS ORDERED: FAMO20TA8 MT (11:26)
[2022-01-06] MEDS ORDERED: ONDA4TAB5 MT (11:26)
== END 2022-01-06 11:41 | disposition home or self-care (01) ==
LOC: ER 08:48
DX: R10.13 Epigastric pain (principal); F41.9 Anxiety disorder, unspecified; Z88.6 Allergy status to analgesic agent; Z98.890 Other specified postprocedural states; Z90.49 Acquired absence of other specified parts of digestive tract; Z98.51 Tubal ligation status; Z79.899 Other long term (current) drug therapy
CPT/HCPCS: 36415; 80053; 83690; 85025; 99284; Q0162

== ENCOUNTER 2022-01-15 10:35 | Emergency (ER) | payer MEDICAID ==
[~2022-01-15] VITALS: Ht 154.9 cm; Wt 60.0 kg
[2022-01-15 11:03] VITALS: BP 119/67
[2022-01-15] MEDS ORDERED: MAGNESIUM/ALUMINUM HYDROXIDE/SIMETHICONE 30ML UDC PO ONE (17:30)
[2022-01-15 17:42] LABS: HEMATOCRIT. 39.7 % (36.0-48.0); HEMOGLOBIN. 13.4 g/dL (12.0-16.0); MEAN CORPUSCULAR HEMOGLOBIN 28.4 pg (28.0-32.0); MEAN CORPUSCULAR VOLUME 84.5 fL (81.0-99.0); PLATELET 358 x1000/uL (130-400); RED CELL DISTRIBUTION WIDTH 15.2 % (11.6-14.6)
[2022-01-15 17:50] LABS: CHLORIDE 107 mEq/L (98-107)
[2022-01-15] MEDS ORDERED: MAGNESIUM/ALUMINUM HYDROXIDE/SIMETHICONE 30ML UDC PO NR (17:59)
[2022-01-15] MEDS ORDERED: OMEP40CA20 MT (18:13)
[2022-01-15] MEDS ORDERED: PROT20 MT (18:17)
[2022-01-15 19:39] LABS: PLATELET ESTIMATE NORMAL
== END 2022-01-15 18:26 | disposition home or self-care (01) ==
LOC: ER 10:35
DX: R10.13 Epigastric pain (principal); R07.89 Other chest pain; F41.9 Anxiety disorder, unspecified; Z90.49 Acquired absence of other specified parts of digestive tract; Z98.51 Tubal ligation status; Z79.899 Other long term (current) drug therapy
CPT/HCPCS: 36415; 71045; 80053; 83880; 84484; 85025; 93005; 99285

== ENCOUNTER 2022-01-28 09:18 | Emergency (ER) | payer MEDICAID, OTHER ==
[~2022-01-28] VITALS: Ht 165.1 cm; Wt 68.0 kg
[~2022-01-28 09:18] MED LIST changes: +MONT-39 PO; -MONT10TA32 PO
[2022-01-28 11:40] LABS: BASOPHILS % 0.4 % (0.0-2.0); EOSINOPHILS % 0.6 % (0.0-5.0); HEMATOCRIT. 37.2 % (36.0-48.0); HEMOGLOBIN. 12.4 g/dL (12.0-16.0); MEAN CORPUSCULAR HEMOGLOBIN 27.6 pg (28.0-32.0); MEAN PLATELET VOLUME 7.1 fl (7.4-10.4); MONOCYTES % 8.8 % (2.0-8.0); NEUTROPHILS % 71.2 % (40.0-76.0); PLATELET 380 x1000/uL (130-400); RED BLOOD CELL COUNT 4.49 mill/uL (4.2-5.4); RED CELL DISTRIBUTION WIDTH 15.2 % (11.6-14.6)
[2022-01-28 11:50] LABS: CHLORIDE 108 mEq/L (98-107)
[2022-01-28] MEDS ORDERED: FAMOTIDINE 20MG/2ML VIAL IV STA (11:50)
[2022-01-28] MEDS ORDERED: MAGNESIUM/ALUMINUM HYDROXIDE/SIMETHICONE 30ML UDC PO STA (11:50)
[2022-01-28] MEDS ORDERED: VISCOUS LIDOCAINE 2% 15 ML UDC PO STA (11:50)
[2022-01-28] MEDS ORDERED: FAMOTIDINE 20MG TABLET PO ONE (12:00)
[2022-01-28] MEDS ORDERED: LORAZEPAM 0.5MG TABLET PO ONE (12:00)
[2022-01-28 13:25] VITALS: BP 144/66
== END 2022-01-28 13:48 | disposition home or self-care (01) ==
LOC: ER 09:18
DX: R10.9 Unspecified abdominal pain (principal); M19.90 Unspecified osteoarthritis, unspecified site; Z90.49 Acquired absence of other specified parts of digestive tract
CPT/HCPCS: 36415; 71045; 80053; 83880; 84484; 85025; 93005; 99285

== ENCOUNTER 2022-02-11 08:40 | Emergency (ER) | payer MEDICAID, OTHER ==
[~2022-02-11] VITALS: Ht 160 cm; Wt 59.0 kg
[2022-02-11] MEDS ORDERED: VISCOUS LIDOCAINE 2% 15 ML UDC PO STA (08:54)
[2022-02-11] MEDS ORDERED: MAGNESIUM/ALUMINUM HYDROXIDE/SIMETHICONE 30ML UDC PO STA (08:54)
[2022-02-11] MEDS ORDERED: FAMOTIDINE 20MG TABLET PO ONE (09:00)
[2022-02-11] MEDS ORDERED: ONDANSETRON 4MG ODT PO ONE (09:00)
[2022-02-11] MEDS ORDERED: LORAZEPAM 1MG TABLET PO ONE (09:00)
[2022-02-11 09:41] LABS: BASOPHILS % 0.5 % (0.0-2.0); EOSINOPHILS % 1.2 % (0.0-5.0); HEMATOCRIT. 37.4 % (36.0-48.0); HEMOGLOBIN. 12.4 g/dL (12.0-16.0); LYMPHOCYTES % 24.1 % (20.0-50.0); MEAN CORPUSCULAR HEMOGLOBIN 27.8 pg (28.0-32.0); MEAN CORPUSCULAR VOLUME 83.5 fL (81.0-99.0); MEAN PLATELET VOLUME 7.4 fl (7.4-10.4); MONOCYTES % 7.6 % (2.0-8.0); NEUTROPHILS % 66.6 % (40.0-76.0); PLATELET 406 x1000/uL (130-400); RED BLOOD CELL COUNT 4.48 mill/uL (4.2-5.4); RED CELL DISTRIBUTION WIDTH 15.4 % (11.6-14.6)
[2022-02-11 09:49] LABS: CHLORIDE 106 mEq/L (98-107)
[2022-02-11] MEDS ORDERED: PANT20TA17 MT (10:02)
[2022-02-11] MEDS ORDERED: MAG-55 MT (10:02)
[2022-02-11] MEDS ORDERED: ACETAMINOPHEN 325MG TABLET PO NR (10:30)
[2022-02-11 10:47] VITALS: BP 136/76
== END 2022-02-11 10:48 | disposition home or self-care (01) ==
LOC: ER 08:40
DX: K21.9 Gastro-esophageal reflux disease without esophagitis (principal); F41.9 Anxiety disorder, unspecified; M32.9 Systemic lupus erythematosus, unspecified; Z90.49 Acquired absence of other specified parts of digestive tract; Z88.5 Allergy status to narcotic agent
CPT/HCPCS: 36415; 71045; 80053; 83690; 83880; 84484; 85025; 93005; 99285; Q0162

== ENCOUNTER 2022-03-06 09:35 | Emergency (ER) | payer MEDICAID ==
[~2022-03-06] VITALS: Ht 165.1 cm; Wt 70.0 kg
[~2022-03-06 09:35] MED LIST changes: +PANT20TA17 MT
[2022-03-06 09:43] VITALS: BP 135/71
[2022-03-06] MEDS ORDERED: METOCLOPRAMIDE HCL 10MG/2ML VIAL IV ONE (10:00)
[2022-03-06] MEDS ORDERED: SODIUM CHLORIDE 0.9% 1,000 ML IV ONE (10:00)
[2022-03-06] MEDS ORDERED: ACETAMINOPHEN 325MG TABLET PO STA (10:00)
[2022-03-06] MEDS ORDERED: DIPHENHYDRAMINE 50MG/ML VIAL IV ONE (10:00)
[2022-03-06] MEDS ORDERED: VISCOUS LIDOCAINE 2% 15 ML UDC MM ONE (10:30)
[2022-03-06] MEDS ORDERED: PANTOPRAZOLE SODIUM 40 MG/VIAL IV ONE (10:30)
[2022-03-06 10:34] LABS: CLARITY URINE CLEAR (CLEAR); COLOR URINE YELLOW (YELLOW); KETONES URINE NEGATIVE (NEGATIVE); LEUKOCYTE ESTERASE URINE NEGATIVE (NEGATIVE); NITRITE URINE NEGATIVE (NEGATIVE); OCCULT BLOOD URINE TRACE (NEGATIVE); PH URINE 5.5 (4.5-8.0); PROTEIN URINE NEGATIVE (NEGATIVE); SPECIFIC GRAVITY URINE 1.007 (1.005-1.030); UROBILINOGEN URINE 0.2 E.U./dL (0.2-1.0)
[2022-03-06 10:35] LABS: HEMATOCRIT. 41.2 % (36.0-48.0); HEMOGLOBIN. 13.5 g/dL (12.0-16.0); MEAN CORPUSCULAR HEMOGLOBIN 27.2 pg (28.0-32.0); MEAN CORPUSCULAR VOLUME 83.1 fL (81.0-99.0); MEAN PLATELET VOLUME 7.1 fl (7.4-10.4); PLATELET 402 x1000/uL (130-400); RED BLOOD CELL COUNT 4.97 mill/uL (4.2-5.4); RED CELL DISTRIBUTION WIDTH 15.7 % (11.6-14.6)
[2022-03-06 10:42] LABS: CHLORIDE 108 mEq/L (98-107)
[2022-03-06 10:48] LABS: ETHANOL BLOOD < 10 mg/dL
[2022-03-06 10:56] LABS: PLATELET ESTIMATE SLIGHTLY INCREASED
[2022-03-06 11:02] LABS: *AMPHETAMINES SCREEN URINE NEGATIVE (NEGATIVE); *BARBITURATES SCREEN URINE NEGATIVE (NEGATIVE); *BENZODIAZEPINES SCREEN URINE NEGATIVE (NEGATIVE); *COCAINE SCREEN URINE NEGATIVE (NEGATIVE); CANNABINOID URINE SCREEN NEGATIVE (NEGATIVE); METHADONE URINE SCREEN NEGATIVE (NEGATIVE); OPIATES URINE SCREEN NEGATIVE (NEGATIVE); PHENCYCLIDINE URINE SCREEN NEGATIVE (NEGATIVE)
[2022-03-06] MEDS ORDERED: MAG355OR21 MT (12:46)
[2022-03-06] MEDS ORDERED: PROT40 MT (12:46)
[2022-03-06] MEDS ORDERED: ONDA4TAB50 MT (12:46)
[2022-03-06] MEDS ORDERED: ALPRAZOLAM 0.25 MG TABLET PO NR (13:00)
== END 2022-03-06 13:19 | disposition home or self-care (01) ==
LOC: ER 09:35
DX: K29.00 Acute gastritis without bleeding (principal); F41.9 Anxiety disorder, unspecified; R03.0 Elevated blood-pressure reading, without diagnosis of hypertension; M19.90 Unspecified osteoarthritis, unspecified site; M32.9 Systemic lupus erythematosus, unspecified; Z90.49 Acquired absence of other specified parts of digestive tract; Z88.5 Allergy status to narcotic agent
CPT/HCPCS: 36415; 71045; 80053; 80305; 80320; 81003; 85025; 96361; 96374; 96375; 99284; C9113; J1200; J2765; J7030; G0480

== ENCOUNTER 2022-03-17 11:30 | Emergency (ER) | payer MEDICAID ==
[~2022-03-17] VITALS: Ht 162.6 cm; Wt 55.0 kg
[~2022-03-17 11:30] MED LIST changes: +ONDA4TAB50 MT; +PROT40 MT
[2022-03-17 11:51] VITALS: BP 133/77
[2022-03-17] MEDS ORDERED: LORAZEPAM 0.5MG TABLET PO ONE (14:45)
[2022-03-17] MEDS ORDERED: MAGNESIUM/ALUMINUM HYDROXIDE/SIMETHICONE 30ML UDC PO ONE (14:45)
[2022-03-17] MEDS ORDERED: VISCOUS LIDOCAINE 2% 15 ML UDC PO ONE (14:45)
[2022-03-17] MEDS ORDERED: FAMOTIDINE 20MG TABLET PO ONE (14:45)
[2022-03-17 15:25] LABS: BASOPHILS % 0.7 % (0.0-2.0); EOSINOPHILS % 0.9 % (0.0-5.0); HEMATOCRIT. 39.3 % (36.0-48.0); LYMPHOCYTES % 23.9 % (20.0-50.0); MEAN CORPUSCULAR HEMOGLOBIN 27.5 pg (28.0-32.0); MEAN CORPUSCULAR VOLUME 83.6 fL (81.0-99.0); MEAN PLATELET VOLUME 7.4 fl (7.4-10.4); MONOCYTES % 9.2 % (2.0-8.0); NEUTROPHILS % 65.3 % (40.0-76.0); PLATELET 348 x1000/uL (130-400); RED CELL DISTRIBUTION WIDTH 15.5 % (11.6-14.6)
[2022-03-17 15:28] LABS: CHLORIDE 104 mEq/L (98-107)
== END 2022-03-17 16:15 | disposition home or self-care (01) ==
LOC: ER 11:30
DX: R10.13 Epigastric pain (principal); F41.9 Anxiety disorder, unspecified; Z87.19 Personal history of other diseases of the digestive system; K21.9 Gastro-esophageal reflux disease without esophagitis; Z90.49 Acquired absence of other specified parts of digestive tract; Z79.899 Other long term (current) drug therapy
CPT/HCPCS: 36415; 80053; 85025; 93005; 99284

== ENCOUNTER 2022-03-19 10:33 | Emergency (ER) | payer MEDICAID ==
[~2022-03-19] VITALS: Ht 162.6 cm; Wt 55.0 kg
[2022-03-19 10:52] VITALS: BP 141/71
[2022-03-19] MEDS ORDERED: MAGNESIUM/ALUMINUM HYDROXIDE/SIMETHICONE 30ML UDC PO STA (12:00)
[2022-03-19] MEDS ORDERED: VISCOUS LIDOCAINE 2% 15 ML UDC PO STA (12:00)
[2022-03-19] MEDS ORDERED: ONDANSETRON 4MG ODT PO STA (12:00)
[2022-03-19] MEDS ORDERED: LORAZEPAM 0.5MG TABLET PO ONE (12:45)
[2022-03-19 12:48] LABS: BASOPHILS % 0.4 % (0.0-2.0); HEMATOCRIT. 39.2 % (36.0-48.0); LYMPHOCYTES % 25.6 % (20.0-50.0); MEAN CORPUSCULAR HEMOGLOBIN 27.5 pg (28.0-32.0); MEAN CORPUSCULAR VOLUME 83.1 fL (81.0-99.0); MEAN PLATELET VOLUME 7.1 fl (7.4-10.4); MONOCYTES % 8.8 % (2.0-8.0); NEUTROPHILS % 64.2 % (40.0-76.0); PLATELET 344 x1000/uL (130-400); RED BLOOD CELL COUNT 4.72 mill/uL (4.2-5.4); RED CELL DISTRIBUTION WIDTH 15.7 % (11.6-14.6)
[2022-03-19 12:57] LABS: CHLORIDE 105 mEq/L (98-107)
[2022-03-19 13:30] LABS: CLARITY URINE CLEAR (CLEAR); COLOR URINE YELLOW (YELLOW); KETONES URINE TRACE (NEGATIVE); LEUKOCYTE ESTERASE URINE 2+ (NEGATIVE); NITRITE URINE NEGATIVE (NEGATIVE); OCCULT BLOOD URINE 1+ (NEGATIVE); PH URINE 5.5 (4.5-8.0); PROTEIN URINE NEGATIVE (NEGATIVE); SPECIFIC GRAVITY URINE 1.022 (1.005-1.030); UROBILINOGEN URINE 0.2 E.U./dL (0.2-1.0)
[2022-03-19] MEDS ORDERED: ONDA4TAB11 PO ×2 (14:59)
== END 2022-03-19 15:09 | disposition home or self-care (01) ==
LOC: ER 11:25
DX: R10.13 Epigastric pain (principal); R11.0 Nausea; F41.9 Anxiety disorder, unspecified; K21.9 Gastro-esophageal reflux disease without esophagitis; Z90.49 Acquired absence of other specified parts of digestive tract; Z79.899 Other long term (current) drug therapy
CPT/HCPCS: 36415; 74176; 80053; 81003; 83690; 84484; 85025; 93005; 99285; Q0162

== ENCOUNTER 2022-04-01 12:59 | Inpatient (IN) | payer MEDICAID ==
[~2022-04-01] VITALS: Ht 162.6 cm; Wt 57.3 kg
[~2022-04-01 12:59] MED LIST changes: +ONDA4TAB11 PO
[2022-04-01] MEDS ORDERED: MAGNESIUM/ALUMINUM HYDROXIDE/SIMETHICONE 30ML UDC PO STA ×2 (16:52)
[2022-04-01] MEDS ORDERED: VISCOUS LIDOCAINE 2% 15 ML UDC PO STA (16:52)
[2022-04-01] MEDS ORDERED: ACETAMINOPHEN 325MG TABLET PO STA (16:52)
[2022-04-01 17:14] LABS: BASOPHILS % 0.7 % (0.0-2.0); EOSINOPHILS % 0.4 % (0.0-5.0); HEMATOCRIT. 39.5 % (36.0-48.0); HEMOGLOBIN. 13.1 g/dL (12.0-16.0); MEAN CORPUSCULAR HEMOGLOBIN 27.4 pg (28.0-32.0); MEAN CORPUSCULAR VOLUME 82.4 fL (81.0-99.0); MEAN PLATELET VOLUME 7.1 fl (7.4-10.4); MONOCYTES % 4.8 % (2.0-8.0); NEUTROPHILS % 77.1 % (40.0-76.0); PLATELET 401 x1000/uL (130-400); RED CELL DISTRIBUTION WIDTH 15.6 % (11.6-14.6)
[2022-04-01 17:19] LABS: CHLORIDE 104 mEq/L (98-107)
[2022-04-01] MEDS ORDERED: ASPIRIN 81MG TABLET PO ONE (21:15)
[2022-04-01] MEDS ORDERED: NITROGLYCERIN 0.4MG TABLET SL SL PRN (21:15)
[2022-04-01] MEDS ORDERED: LORAZEPAM 0.5MG TABLET PO ONE (22:30)
[2022-04-02 08:00] VITALS: BP 139/83
[2022-04-02 09:45] VITALS: BP 139/83
[2022-04-02 12:00] VITALS: BP 107/55
[2022-04-02] MEDS: AMLODIPINE 5MG TABLET PO SCH (15:00)
[2022-04-02] MEDS ORDERED: ATOR20TA PO (15:09)
[2022-04-02] MEDS ORDERED: TRAM50TA3 PO (15:10)
[2022-04-02] MEDS ORDERED: AZAT50TA24 PO (15:11)
[2022-04-02] MEDS ORDERED: ALEN70TA79 PO (15:15)
[2022-04-02] MEDS ORDERED: PILO5TAB17 PO (15:17)
[2022-04-02] MEDS ORDERED: OMEP20TA23 PO (15:18)
[2022-04-02] MEDS ORDERED: ACET-2708 PO (15:18)
[2022-04-02] MEDS ORDERED: PANTOPRAZOLE 40MG DR TABLET PO SCH (15:30)
[2022-04-02] MEDS: LORAZEPAM 1MG TABLET PO PRN (15:53)
[2022-04-02 16:00] VITALS: BP 128/62
[2022-04-02] MEDS ORDERED: AZATHIOPRINE 50MG TABLET PO SCH (17:00)
[2022-04-02] MEDS: DICYCLOMINE HCL 10MG CAPSULE PO SCH (17:32)
[2022-04-02] MEDS: HYDROXYZINE 10 MG TABLET PO SCH (17:33)
[2022-04-02] MEDS: FAMOTIDINE 20MG TABLET PO SCH (17:33)
[2022-04-02] MEDS: HYDROXYCHLOROQUINE SULFATE 200MG TABLET PO SCH (18:10)
[2022-04-02] MEDS: AZATHIOPRINE 50MG TABLET PO SCH (18:10)
[2022-04-02 20:00] VITALS: BP 122/74
[2022-04-02] MEDS ORDERED: ATORVASTATIN CALCIUM 40MG TABLET PO SCH (21:00)
[2022-04-02] MEDS: ATORVASTATIN CALCIUM 20MG TABLET PO SCH (21:07)
[2022-04-03] VITALS: BP 153/88
[2022-04-03 04:00] VITALS: BP 144/76
[2022-04-03] MEDS: ACETAMINOPHEN 325MG TABLET PO PRN ×2 (06:21→12:35)
[2022-04-03 06:58] LABS: BASOPHILS % 0.4 % (0.0-2.0); EOSINOPHILS % 1.1 % (0.0-5.0); HEMATOCRIT. 38.2 % (36.0-48.0); HEMOGLOBIN. 12.5 g/dL (12.0-16.0); LYMPHOCYTES % 18.5 % (20.0-50.0); MEAN CORPUSCULAR HEMOGLOBIN 26.8 pg (28.0-32.0); MEAN CORPUSCULAR VOLUME 82.1 fL (81.0-99.0); MEAN PLATELET VOLUME 7.2 fl (7.4-10.4); MONOCYTES % 10.5 % (2.0-8.0); NEUTROPHILS % 69.5 % (40.0-76.0); PLATELET 349 x1000/uL (130-400); RED BLOOD CELL COUNT 4.65 mill/uL (4.2-5.4); RED CELL DISTRIBUTION WIDTH 15.7 % (11.6-14.6)
[2022-04-03 07:19] LABS: CHLORIDE 108 mEq/L (98-107)
[2022-04-03 08:00] VITALS: BP 128/71
[2022-04-03] MEDS: HYDROXYZINE 10 MG TABLET PO SCH ×2 (09:17→17:16)
[2022-04-03] MEDS: DICYCLOMINE HCL 10MG CAPSULE PO SCH ×3 (09:17→17:20)
[2022-04-03] MEDS: HYDROXYCHLOROQUINE SULFATE 200MG TABLET PO SCH ×2 (09:17→17:16)
[2022-04-03] MEDS: FAMOTIDINE 20MG TABLET PO SCH ×2 (09:17→17:16)
[2022-04-03] MEDS: AZATHIOPRINE 50MG TABLET PO SCH ×2 (09:17→17:16)
[2022-04-03] MEDS: AMLODIPINE 5MG TABLET PO SCH (09:17)
[2022-04-03 12:00] VITALS: BP 128/56
[2022-04-03] MEDS: LORAZEPAM 1MG TABLET PO PRN (15:31)
[2022-04-03 15:35] VITALS: BP 117/76
[2022-04-03 20:00] VITALS: BP_SYST 136; BP_SYST 156; BP_DIAS 51; BP_DIAS 78
[2022-04-03] MEDS: ATORVASTATIN CALCIUM 20MG TABLET PO SCH (21:47)
[2022-04-04] VITALS: BP 144/85
[2022-04-04 04:00] VITALS: BP 130/80
[2022-04-04] MEDS: ACETAMINOPHEN 325MG TABLET PO PRN (06:08)
[2022-04-04 08:00] VITALS: BP 134/72
[2022-04-04] MEDS: DICYCLOMINE HCL 10MG CAPSULE PO SCH ×2 (08:12→12:42)
[2022-04-04] MEDS: HYDROXYCHLOROQUINE SULFATE 200MG TABLET PO SCH (08:12)
[2022-04-04] MEDS: AMLODIPINE 5MG TABLET PO SCH (08:12)
[2022-04-04] MEDS: AZATHIOPRINE 50MG TABLET PO SCH (08:12)
[2022-04-04] MEDS: FAMOTIDINE 20MG TABLET PO SCH (08:12)
[2022-04-04] MEDS: HYDROXYZINE 10 MG TABLET PO SCH (08:14)
[2022-04-04 12:00] VITALS: BP 109/63
[2022-04-04] MEDS: LORAZEPAM 1MG TABLET PO PRN (12:42)
[2022-04-04 13:11] VITALS: BP 109/63
== END 2022-04-04 16:18 | disposition home or self-care (01) | DRG 243 ==
LOC: ER 13:52 → MICUSO 04-02 00:26 → 7EST 04-02 07:59
PROVIDERS: ADMIT Internal Medicine; ATTEND Internal Medicine
DX: K21.9 Gastro-esophageal reflux disease without esophagitis (principal); U07.1 COVID-19; M32.9 Systemic lupus erythematosus, unspecified; J44.0 Chronic obstructive pulmonary disease with (acute) lower respiratory infection; R07.89 Other chest pain; E78.00 Pure hypercholesterolemia, unspecified; J44.9 Chronic obstructive pulmonary disease, unspecified; M19.90 Unspecified osteoarthritis, unspecified site; F41.9 Anxiety disorder, unspecified; Z88.8 Allergy status to other drugs, medicaments and biological substances; Z90.49 Acquired absence of other specified parts of digestive tract; Z79.899 Other long term (current) drug therapy; Z86.711 Personal history of pulmonary embolism; Z82.49 Family history of ischemic heart disease and other diseases of the circulatory system
CPT/HCPCS: 36415; 71045; 71275; 74176; 76705; 80048; 80053; 84484; 85025; 85379; 87426; 93005; 93970; 99285; J7500

== ENCOUNTER 2022-04-26 10:35 | Emergency (ER) | payer MEDICAID ==
[~2022-04-26] VITALS: Ht 165.1 cm; Wt 59.0 kg
[~2022-04-26 10:35] MED LIST changes: +ACET-2708 PO; +ALEN70TA79 PO; +ATOR20TA PO; -ATOR40TA70 PO; -AZAT50TA24 MT; +AZAT50TA24 PO; -AZIT500T3 MT; -FAMO-135 MT; -FAMO40TA70 MT; -LORA-249 MT; -LORA-250 MT; -LORA2ORA PO; -MAG-55 MT; -MAG355OR20 PO; -OMEP10CA5 MT; -OMEP20CA14 MT; +OMEP20TA23 PO; -OMEP40CA20 MT; -ONDA4TAB11 PO; -ONDA4TAB50 MT; -PANT20TA17 MT; +PILO5TAB17 PO; -PRED10TA23 MT; -PROT20 MT; -PROT40 MT; -RANI150C12 MT; +TRAM50TA3 PO
[2022-04-26 12:49] LABS: BASOPHILS % 0.6 % (0.0-2.0); EOSINOPHILS % 1.2 % (0.0-5.0); HEMATOCRIT. 37.5 % (36.0-48.0); HEMOGLOBIN. 12.2 g/dL (12.0-16.0); LYMPHOCYTES % 21.8 % (20.0-50.0); MEAN CORPUSCULAR HEMOGLOBIN 27.4 pg (28.0-32.0); MEAN CORPUSCULAR VOLUME 84.2 fL (81.0-99.0); MEAN PLATELET VOLUME 7.1 fl (7.4-10.4); MONOCYTES % 8.6 % (2.0-8.0); NEUTROPHILS % 67.8 % (40.0-76.0); PLATELET 413 x1000/uL (130-400); RED BLOOD CELL COUNT 4.45 mill/uL (4.2-5.4); RED CELL DISTRIBUTION WIDTH 16.3 % (11.6-14.6)
[2022-04-26] MEDS: ONDANSETRON 4MG ODT PO STA (12:50)
[2022-04-26] MEDS: MAGNESIUM/ALUMINUM HYDROXIDE/SIMETHICONE 30ML UDC PO STA (12:50)
[2022-04-26] MEDS: DICYCLOMINE 10 MG/5 ML ORAL SYR PO STA (12:50)
[2022-04-26] MEDS: VISCOUS LIDOCAINE 2% 15 ML UDC PO STA (12:50)
[2022-04-26] MEDS: FAMOTIDINE 20MG TABLET PO ONE (12:50)
[2022-04-26] MEDS: ACETAMINOPHEN 325MG TABLET PO STA (12:50)
[2022-04-26 12:56] LABS: CHLORIDE 108 mEq/L (98-107)
[2022-04-26 13:00] LABS: PROTHROMBIN TIME 10.4 sec (9.6-11.0)
[2022-04-26 13:02] VITALS: BP 131/73
[2022-04-26] MEDS ORDERED: FAMO-135 PO (13:18)
== END 2022-04-26 13:35 | disposition home or self-care (01) ==
LOC: ER 10:35
DX: K21.9 Gastro-esophageal reflux disease without esophagitis (principal); I10 Essential (primary) hypertension; F41.9 Anxiety disorder, unspecified; E78.00 Pure hypercholesterolemia, unspecified; M32.9 Systemic lupus erythematosus, unspecified; M19.90 Unspecified osteoarthritis, unspecified site; Z90.49 Acquired absence of other specified parts of digestive tract; Z98.51 Tubal ligation status; Z88.5 Allergy status to narcotic agent
CPT/HCPCS: 36415; 80053; 83690; 85025; 85610; 99284; Q0162

== ENCOUNTER 2022-07-15 08:39 | Emergency (ER) | payer MEDICAID, OTHER ==
[~2022-07-15] VITALS: Ht 157.5 cm; Wt 61.0 kg
[~2022-07-15 08:39] MED LIST changes: +FAMO-135 PO
[2022-07-15] MEDS ORDERED: ONDANSETRON HCL 4MG/2ML INJ IV STA (09:54)
[2022-07-15] MEDS ORDERED: SODIUM CHLORIDE 0.9% 1,000 ML IV ONE (10:00)
[2022-07-15] MEDS ORDERED: LORAZEPAM 1MG TABLET PO ONE (10:00)
[2022-07-15 10:11] LABS: BASOPHILS % 0.7 % (0.0-2.0); EOSINOPHILS % 0.7 % (0.0-5.0); HEMATOCRIT. 35.8 % (36.0-48.0); HEMOGLOBIN. 11.6 g/dL (12.0-16.0); LYMPHOCYTES % 20.3 % (20.0-50.0); MEAN CORPUSCULAR HEMOGLOBIN 26.5 pg (28.0-32.0); MEAN CORPUSCULAR VOLUME 82.2 fL (81.0-99.0); MEAN PLATELET VOLUME 7.4 fl (7.4-10.4); MONOCYTES % 7.9 % (2.0-8.0); NEUTROPHILS % 70.4 % (40.0-76.0); PLATELET 429 x1000/uL (130-400); RED BLOOD CELL COUNT 4.36 mill/uL (4.2-5.4)
[2022-07-15 10:17] LABS: CHLORIDE 107 mEq/L (98-107)
[2022-07-15] MEDS ORDERED: VISCOUS LIDOCAINE 2% 15 ML UDC PO STA (12:22)
[2022-07-15] MEDS ORDERED: DICYCLOMINE 10 MG/5 ML ORAL SYR PO STA (12:22)
[2022-07-15] MEDS ORDERED: MAGNESIUM/ALUMINUM HYDROXIDE/SIMETHICONE 30ML UDC PO STA (12:22)
[2022-07-15 13:24] VITALS: BP 131/88
[2022-07-15 13:33] LABS: CLARITY URINE CLEAR (CLEAR); COLOR URINE YELLOW (YELLOW); KETONES URINE NEGATIVE (NEGATIVE); LEUKOCYTE ESTERASE URINE NEGATIVE (NEGATIVE); NITRITE URINE NEGATIVE (NEGATIVE); OCCULT BLOOD URINE NEGATIVE (NEGATIVE); PROTEIN URINE NEGATIVE (NEGATIVE); SPECIFIC GRAVITY URINE 1.004 (1.005-1.030); UROBILINOGEN URINE 0.2 E.U./dL (0.2-1.0)
[2022-07-15] MEDS ORDERED: ONDA4TAB50 MT (13:40)
[2022-07-15] MEDS ORDERED: OMEP40CA20 MT (13:40)
[2022-07-15] MEDS ORDERED: HYDR-3735 MT (13:40)
== END 2022-07-15 16:00 | disposition home or self-care (01) ==
LOC: ER 08:39
DX: R10.13 Epigastric pain (principal); K21.9 Gastro-esophageal reflux disease without esophagitis; E78.00 Pure hypercholesterolemia, unspecified; M19.90 Unspecified osteoarthritis, unspecified site; M32.9 Systemic lupus erythematosus, unspecified; Z90.49 Acquired absence of other specified parts of digestive tract; Z98.51 Tubal ligation status; Z88.5 Allergy status to narcotic agent
CPT/HCPCS: 36415; 71045; 80053; 81003; 83690; 84484; 85025; 93005; 96361; 96374; 99285; J2405; J7030

== ENCOUNTER 2022-07-24 09:13 | Emergency (ER) | payer MEDICAID ==
[~2022-07-24] VITALS: Ht 157.5 cm; Wt 60.0 kg
[~2022-07-24 09:13] MED LIST changes: +HYDR-3735 MT; +OMEP40CA20 MT; +ONDA4TAB50 MT
[2022-07-24] MEDS ORDERED: LORAZEPAM 0.5MG TABLET PO ONE (09:45)
[2022-07-24] MEDS ORDERED: MAGNESIUM/ALUMINUM HYDROXIDE/SIMETHICONE 30ML UDC PO STA (10:15)
[2022-07-24] MEDS ORDERED: VISCOUS LIDOCAINE 2% 15 ML UDC PO STA (10:15)
[2022-07-24] MEDS ORDERED: DICYCLOMINE 10 MG/5 ML ORAL SYR PO STA (10:15)
[2022-07-24] MEDS ORDERED: ONDANSETRON 4MG ODT PO STA (10:15)
[2022-07-24 10:26] VITALS: BP 140/79
== END 2022-07-24 10:35 | disposition home or self-care (01) ==
LOC: ER 09:13
DX: F41.9 Anxiety disorder, unspecified (principal); M19.90 Unspecified osteoarthritis, unspecified site; K21.9 Gastro-esophageal reflux disease without esophagitis; E78.00 Pure hypercholesterolemia, unspecified; M32.9 Systemic lupus erythematosus, unspecified; F13.10 Sedative, hypnotic or anxiolytic abuse, uncomplicated; Z98.51 Tubal ligation status; Z90.49 Acquired absence of other specified parts of digestive tract; Z88.5 Allergy status to narcotic agent
CPT/HCPCS: 99284; Q0162

== ENCOUNTER 2022-08-28 09:14 | Emergency (ER) | payer MEDICAID ==
[~2022-08-28] VITALS: Ht 162.6 cm; Wt 70.0 kg
[2022-08-28 09:30] VITALS: BP 156/76
[2022-08-28 12:39] LABS: CLARITY URINE CLEAR (CLEAR); COLOR URINE YELLOW (YELLOW); KETONES URINE NEGATIVE (NEGATIVE); LEUKOCYTE ESTERASE URINE TRACE (NEGATIVE); NITRITE URINE NEGATIVE (NEGATIVE); OCCULT BLOOD URINE TRACE (NEGATIVE); PROTEIN URINE NEGATIVE (NEGATIVE); SPECIFIC GRAVITY URINE 1.011 (1.005-1.030); UROBILINOGEN URINE 0.2 E.U./dL (0.2-1.0)
[2022-08-28 12:42] LABS: BASOPHILS % 0.4 % (0.0-2.0); EOSINOPHILS % 0.3 % (0.0-5.0); HEMATOCRIT. 35.7 % (36.0-48.0); HEMOGLOBIN. 11.6 g/dL (12.0-16.0); LYMPHOCYTES % 14.5 % (20.0-50.0); MEAN CORPUSCULAR HEMOGLOBIN 26.8 pg (28.0-32.0); MEAN CORPUSCULAR VOLUME 82.4 fL (81.0-99.0); MEAN PLATELET VOLUME 7.2 fl (7.4-10.4); MONOCYTES % 6.9 % (2.0-8.0); NEUTROPHILS % 77.9 % (40.0-76.0); PLATELET 399 x1000/uL (130-400); RED BLOOD CELL COUNT 4.34 mill/uL (4.2-5.4); RED CELL DISTRIBUTION WIDTH 17.5 % (11.6-14.6)
[2022-08-28 12:46] LABS: CHLORIDE 108 mEq/L (98-107)
[2022-08-28] MEDS ORDERED: VISCOUS LIDOCAINE 2% 15 ML UDC PO STA (12:48)
[2022-08-28] MEDS ORDERED: MAGNESIUM/ALUMINUM HYDROXIDE/SIMETHICONE 30ML UDC PO STA (12:48)
[2022-08-28] MEDS ORDERED: ONDA4TAB11 PO (13:20)
[2022-08-28] MEDS ORDERED: OMEP20CA14 MT (13:20)
== END 2022-08-28 14:41 | disposition home or self-care (01) ==
LOC: ER 09:14
DX: R10.13 Epigastric pain (principal); R11.2 Nausea with vomiting, unspecified; F41.9 Anxiety disorder, unspecified; M32.9 Systemic lupus erythematosus, unspecified; K21.9 Gastro-esophageal reflux disease without esophagitis; E78.00 Pure hypercholesterolemia, unspecified; M19.90 Unspecified osteoarthritis, unspecified site; F16.10 Hallucinogen abuse, uncomplicated; Z90.49 Acquired absence of other specified parts of digestive tract; Z88.5 Allergy status to narcotic agent
CPT/HCPCS: 36415; 76705; 80053; 81003; 85025; 93005; 99285

== ENCOUNTER 2022-08-30 14:17 | Emergency (ER) | payer MEDICAID ==
[~2022-08-30] VITALS: Ht 152.4 cm; Wt 57.0 kg
[~2022-08-30 14:17] MED LIST changes: +OMEP20CA14 MT; +ONDA4TAB11 PO
[2022-08-30 14:27] VITALS: BP 153/84
[2022-08-30] MEDS ORDERED: MAGNESIUM/ALUMINUM HYDROXIDE/SIMETHICONE 30ML UDC PO STA (16:36)
[2022-08-30] MEDS ORDERED: VISCOUS LIDOCAINE 2% 15 ML UDC PO STA (16:36)
[2022-08-30] MEDS ORDERED: FAMOTIDINE 20MG TABLET PO ONE (16:45)
[2022-08-30 17:09] LABS: BASOPHILS % 0.5 % (0.0-2.0); EOSINOPHILS % 0.8 % (0.0-5.0); HEMATOCRIT. 36.4 % (36.0-48.0); HEMOGLOBIN. 11.7 g/dL (12.0-16.0); LYMPHOCYTES % 21.5 % (20.0-50.0); MEAN CORPUSCULAR HEMOGLOBIN 26.5 pg (28.0-32.0); MEAN CORPUSCULAR VOLUME 82.7 fL (81.0-99.0); NEUTROPHILS % 68.2 % (40.0-76.0); PLATELET 432 x1000/uL (130-400); RED BLOOD CELL COUNT 4.41 mill/uL (4.2-5.4); RED CELL DISTRIBUTION WIDTH 16.9 % (11.6-14.6)
[2022-08-30 17:24] LABS: CHLORIDE 106 mEq/L (98-107)
[2022-08-30] MEDS ORDERED: MAG-55 MT (20:13)
[2022-08-30] MEDS ORDERED: DIPH25CA83 MT (20:24)
== END 2022-08-30 20:33 | disposition home or self-care (01) ==
LOC: ER 14:31
DX: R10.13 Epigastric pain (principal); K21.9 Gastro-esophageal reflux disease without esophagitis; F41.9 Anxiety disorder, unspecified; F16.10 Hallucinogen abuse, uncomplicated; E78.00 Pure hypercholesterolemia, unspecified; Z90.49 Acquired absence of other specified parts of digestive tract; Z98.51 Tubal ligation status; Z88.5 Allergy status to narcotic agent
CPT/HCPCS: 36415; 71045; 74176; 80053; 83880; 84484; 85025; 93005; 99285

== ENCOUNTER 2022-09-15 12:53 | Emergency (ER) | payer MEDICAID ==
[~2022-09-15] VITALS: Ht 165.1 cm; Wt 70.0 kg
[~2022-09-15 12:53] MED LIST changes: +DIPH25CA83 MT; +MAG-55 MT
[2022-09-15 13:08] VITALS: BP 151/99
[2022-09-15] MEDS ORDERED: MAGNESIUM/ALUMINUM HYDROXIDE/SIMETHICONE 30ML UDC PO STA (14:16)
[2022-09-15] MEDS ORDERED: VISCOUS LIDOCAINE 2% 15 ML UDC PO STA (14:16)
[2022-09-15] MEDS ORDERED: FAMOTIDINE 20MG TABLET PO ONE (14:30)
[2022-09-15] MEDS ORDERED: LORAZEPAM 2MG/ML CPJ IM ONE (14:30)
[2022-09-15 14:57] LABS: BASOPHILS % 1.1 % (0.0-2.0); HEMOGLOBIN. 12.4 g/dL (12.0-16.0); MEAN CORPUSCULAR HEMOGLOBIN 26.4 pg (28.0-32.0); MEAN CORPUSCULAR VOLUME 81.1 fL (81.0-99.0); MEAN PLATELET VOLUME 7.4 fl (7.4-10.4); MONOCYTES % 8.3 % (2.0-8.0); NEUTROPHILS % 66.6 % (40.0-76.0); PLATELET 431 x1000/uL (130-400); RED BLOOD CELL COUNT 4.69 mill/uL (4.2-5.4); RED CELL DISTRIBUTION WIDTH 16.8 % (11.6-14.6)
[2022-09-15 15:09] LABS: CHLORIDE 104 mEq/L (98-107)
[2022-09-15] MEDS ORDERED: TRAZ-251 MT (15:41)
[2022-09-15] MEDS ORDERED: MAG-55 MT (15:41)
[2022-09-15] MEDS ORDERED: SUCR1TAB MT (15:41)
== END 2022-09-15 16:39 | disposition home or self-care (01) ==
LOC: ER 12:53
DX: K21.9 Gastro-esophageal reflux disease without esophagitis (principal); E78.00 Pure hypercholesterolemia, unspecified; Z88.6 Allergy status to analgesic agent; Z88.5 Allergy status to narcotic agent; Z79.899 Other long term (current) drug therapy; Z98.890 Other specified postprocedural states; Z98.51 Tubal ligation status; Z90.49 Acquired absence of other specified parts of digestive tract
CPT/HCPCS: 36415; 71045; 80053; 83690; 83880; 84484; 85025; 93005; 96372; 99285; J2060

== ENCOUNTER 2022-10-26 14:35 | Emergency (ER) | payer MEDICAID, OTHER ==
[~2022-10-26] VITALS: Ht 152.4 cm; Wt 60.0 kg
[~2022-10-26 14:35] MED LIST changes: +SUCR1TAB MT; +TRAZ-251 MT
[2022-10-26] MEDS ORDERED: MAGNESIUM/ALUMINUM HYDROXIDE/SIMETHICONE 30ML UDC PO STA (18:00)
[2022-10-26] MEDS ORDERED: VISCOUS LIDOCAINE 2% 15 ML UDC PO STA (18:00)
[2022-10-26] MEDS ORDERED: FAMOTIDINE 20MG TABLET PO ONE (18:00)
[2022-10-26 18:36] LABS: HEMATOCRIT. 37.1 % (36.0-48.0); HEMOGLOBIN. 12.1 g/dL (12.0-16.0); MEAN CORPUSCULAR HEMOGLOBIN 25.3 pg (28.0-32.0); MEAN CORPUSCULAR VOLUME 77.8 fL (81.0-99.0); MEAN PLATELET VOLUME 7.1 fl (7.4-10.4); PLATELET 478 x1000/uL (130-400); RED BLOOD CELL COUNT 4.77 mill/uL (4.2-5.4); RED CELL DISTRIBUTION WIDTH 16.7 % (11.6-14.6)
[2022-10-26 18:43] LABS: CHLORIDE 105 mEq/L (98-107)
[2022-10-26 19:04] LABS: PLATELET ESTIMATE INCREASED
[2022-10-26 19:41] VITALS: BP 131/74
[2022-10-26] MEDS ORDERED: FAMOTIDINE 20MG TABLET PO NR (20:30)
[2022-10-26] MEDS ORDERED: VISCOUS LIDOCAINE 2% 15 ML UDC PO NR (20:30)
[2022-10-26] MEDS ORDERED: MAGNESIUM/ALUMINUM HYDROXIDE/SIMETHICONE 30ML UDC PO NR (20:30)
[2022-10-26] MEDS ORDERED: FAMO-135 MT (22:35)
[2022-10-26] MEDS ORDERED: MAG-55 MT (22:35)
== END 2022-10-26 22:50 | disposition home or self-care (01) ==
LOC: ER 14:35
DX: R10.9 Unspecified abdominal pain (principal); M32.9 Systemic lupus erythematosus, unspecified; M19.90 Unspecified osteoarthritis, unspecified site; K21.9 Gastro-esophageal reflux disease without esophagitis; F41.9 Anxiety disorder, unspecified; F13.10 Sedative, hypnotic or anxiolytic abuse, uncomplicated; E78.00 Pure hypercholesterolemia, unspecified; Z90.49 Acquired absence of other specified parts of digestive tract; Z98.51 Tubal ligation status; Z88.6 Allergy status to analgesic agent; Z88.5 Allergy status to narcotic agent
CPT/HCPCS: 36415; 71045; 80053; 83880; 84484; 85025; 93005; 99285

== ENCOUNTER 2022-11-04 09:28 | Emergency (ER) | payer MEDICAID ==
[~2022-11-04] VITALS: Ht 152.4 cm; Wt 57.0 kg
[~2022-11-04 09:28] MED LIST changes: +FAMO-135 MT
[2022-11-04 09:36] VITALS: BP 154/79
[2022-11-04] MEDS ORDERED: MAGNESIUM/ALUMINUM HYDROXIDE/SIMETHICONE 30ML UDC PO STA (14:03)
[2022-11-04] MEDS ORDERED: VISCOUS LIDOCAINE 2% 15 ML UDC PO STA (14:03)
[2022-11-04] MEDS ORDERED: FAMOTIDINE 20MG TABLET PO ONE (14:15)
[2022-11-04 14:58] LABS: BASOPHILS % 0.5 % (0.0-2.0); EOSINOPHILS % 1.2 % (0.0-5.0); HEMATOCRIT. 34.7 % (36.0-48.0); HEMOGLOBIN. 11.2 g/dL (12.0-16.0); LYMPHOCYTES % 27.3 % (20.0-50.0); MEAN CORPUSCULAR HEMOGLOBIN 24.9 pg (28.0-32.0); MEAN CORPUSCULAR VOLUME 77.3 fL (81.0-99.0); MEAN PLATELET VOLUME 6.5 fl (7.4-10.4); PLATELET 444 x1000/uL (130-400); RED BLOOD CELL COUNT 4.49 mill/uL (4.2-5.4); RED CELL DISTRIBUTION WIDTH 16.6 % (11.6-14.6)
[2022-11-04 15:06] LABS: CHLORIDE 106 mEq/L (98-107)
[2022-11-04] MEDS ORDERED: LORAZEPAM 0.5MG TABLET PO ONE (16:30)
[2022-11-04] MEDS ORDERED: MAG-55 MT (16:50)
[2022-11-04] MEDS ORDERED: ONDANSETRON 4MG ODT PO ONE (17:00)
== END 2022-11-04 17:30 | disposition home or self-care (01) ==
LOC: ER 09:28
DX: K21.9 Gastro-esophageal reflux disease without esophagitis (principal); E78.00 Pure hypercholesterolemia, unspecified; M32.9 Systemic lupus erythematosus, unspecified; F41.9 Anxiety disorder, unspecified; M19.90 Unspecified osteoarthritis, unspecified site; F13.10 Sedative, hypnotic or anxiolytic abuse, uncomplicated; Z90.49 Acquired absence of other specified parts of digestive tract; Z98.51 Tubal ligation status; Z88.6 Allergy status to analgesic agent; Z88.5 Allergy status to narcotic agent
CPT/HCPCS: 36415; 71045; 80053; 83690; 83880; 84484; 85025; 93005; 99285; Q0162

== ENCOUNTER 2022-11-28 15:37 | Emergency (ER) | payer MEDICAID ==
[~2022-11-28] VITALS: Ht 167.6 cm; Wt 55.0 kg
[2022-11-28 16:48] LABS: HEMATOCRIT. 36.6 % (36.0-48.0); HEMOGLOBIN. 11.9 g/dL (12.0-16.0); MEAN CORPUSCULAR HEMOGLOBIN 25.1 pg (28.0-32.0); MEAN CORPUSCULAR VOLUME 77.6 fL (81.0-99.0); MEAN PLATELET VOLUME 7.1 fl (7.4-10.4); PLATELET 422 x1000/uL (130-400); RED BLOOD CELL COUNT 4.72 mill/uL (4.2-5.4); RED CELL DISTRIBUTION WIDTH 17.1 % (11.6-14.6)
[2022-11-28 16:55] LABS: CHLORIDE 103 mEq/L (98-107)
[2022-11-28 18:26] LABS: PLATELET ESTIMATE INCREASED
[2022-11-28] MEDS ORDERED: MAG-55 MT (21:41)
[2022-11-28] MEDS ORDERED: FAMO-135 PO (21:41)
[2022-11-28 21:57] VITALS: BP 132/67
[2022-11-28] MEDS ORDERED: MAGNESIUM/ALUMINUM HYDROXIDE/SIMETHICONE 30ML UDC PO STA (21:58)
[2022-11-28] MEDS ORDERED: DICYCLOMINE 10 MG/5 ML ORAL SYR PO STA (21:58)
[2022-11-28] MEDS ORDERED: VISCOUS LIDOCAINE 2% 15 ML UDC PO STA (21:58)
[2022-11-28] MEDS ORDERED: ONDANSETRON 4MG ODT PO STA (21:58)
[2022-11-28] MEDS ORDERED: ONDANSETRON 4MG ODT PO NR (22:15)
[2022-11-28] MEDS ORDERED: MAGNESIUM/ALUMINUM HYDROXIDE/SIMETHICONE 30ML UDC PO NR (22:15)
[2022-11-28] MEDS ORDERED: DICYCLOMINE HCL 10MG CAPSULE PO NR (22:15)
[2022-11-28] MEDS ORDERED: VISCOUS LIDOCAINE 2% 15 ML UDC PO NR (22:15)
== END 2022-11-28 23:05 | disposition home or self-care (01) ==
LOC: ER 15:37
DX: K29.70 Gastritis, unspecified, without bleeding (principal); E78.00 Pure hypercholesterolemia, unspecified; Z88.5 Allergy status to narcotic agent; Z88.6 Allergy status to analgesic agent; Z79.899 Other long term (current) drug therapy; Z98.890 Other specified postprocedural states
CPT/HCPCS: 36415; 71045; 80053; 85025; 85730; 93005; 99285; Q0162

== ENCOUNTER 2022-12-05 08:16 | Emergency (ER) | payer MEDICAID ==
[~2022-12-05] VITALS: Ht 154.9 cm; Wt 55.0 kg
[2022-12-05 09:01] LABS: BASOPHILS % 0.6 % (0.0-2.0); CHLORIDE 108 mEq/L (98-107); HEMATOCRIT. 36.4 % (36.0-48.0); HEMOGLOBIN. 11.8 g/dL (12.0-16.0); LYMPHOCYTES % 30.4 % (20.0-50.0); MEAN CORPUSCULAR VOLUME 77.1 fL (81.0-99.0); MEAN PLATELET VOLUME 7.3 fl (7.4-10.4); MONOCYTES % 8.2 % (2.0-8.0); NEUTROPHILS % 59.8 % (40.0-76.0); PLATELET 382 x1000/uL (130-400); RED BLOOD CELL COUNT 4.72 mill/uL (4.2-5.4); RED CELL DISTRIBUTION WIDTH 17.6 % (11.6-14.6)
[2022-12-05] MEDS ORDERED: VISCOUS LIDOCAINE 2% 15 ML UDC PO STA (11:03)
[2022-12-05] MEDS ORDERED: MAGNESIUM/ALUMINUM HYDROXIDE/SIMETHICONE 30ML UDC PO STA (11:03)
[2022-12-05] MEDS ORDERED: DICYCLOMINE 10 MG/5 ML ORAL SYR PO STA (11:03)
[2022-12-05] MEDS ORDERED: ONDANSETRON HCL 4MG/2ML INJ IV STA (11:03)
[2022-12-05] MEDS ORDERED: PANTOPRAZOLE SODIUM 40 MG/VIAL IV ONE (11:15)
[2022-12-05] MEDS ORDERED: OMEP20TA23 MT (12:31)
[2022-12-05] MEDS ORDERED: LORAZEPAM 0.5MG TABLET PO ONE (12:45)
[2022-12-05 12:58] VITALS: BP 144/60
== END 2022-12-05 14:51 | disposition home or self-care (01) ==
LOC: ER 08:23
DX: K21.9 Gastro-esophageal reflux disease without esophagitis (principal); Z88.6 Allergy status to analgesic agent; Z88.2 Allergy status to sulfonamides; Z79.899 Other long term (current) drug therapy; Z90.49 Acquired absence of other specified parts of digestive tract
CPT/HCPCS: 36415; 80053; 83690; 84484; 85025; 93005; 96374; 96375; 99284; C9113; J2405

== ENCOUNTER 2022-12-10 16:21 | Emergency (ER) | payer MEDICAID ==
[~2022-12-10] VITALS: Ht 152.4 cm; Wt 54.5 kg
[~2022-12-10 16:21] MED LIST changes: +OMEP20TA23 MT
[2022-12-10 16:25] VITALS: BP 153/87
[2022-12-10] MEDS ORDERED: ASPIRIN 81MG TABLET PO ONE (16:30)
[2022-12-10] MEDS ORDERED: ASPIRIN 81MG TABLET PO NR (16:30)
[2022-12-10 16:56] LABS: BASOPHILS % 0.5 % (0.0-2.0); EOSINOPHILS % 1.7 % (0.0-5.0); HEMATOCRIT. 35.6 % (36.0-48.0); HEMOGLOBIN. 11.6 g/dL (12.0-16.0); MEAN CORPUSCULAR HEMOGLOBIN 25.4 pg (28.0-32.0); MEAN CORPUSCULAR VOLUME 78.2 fL (81.0-99.0); MEAN PLATELET VOLUME 7.3 fl (7.4-10.4); MONOCYTES % 8.7 % (2.0-8.0); NEUTROPHILS % 52.1 % (40.0-76.0); PLATELET 344 x1000/uL (130-400); RED BLOOD CELL COUNT 4.55 mill/uL (4.2-5.4); RED CELL DISTRIBUTION WIDTH 17.3 % (11.6-14.6)
[2022-12-10] MEDS ORDERED: VISCOUS LIDOCAINE 2% 15 ML UDC PO STA (17:01)
[2022-12-10] MEDS ORDERED: DICYCLOMINE 10 MG/5 ML ORAL SYR PO STA (17:01)
[2022-12-10] MEDS ORDERED: MAGNESIUM/ALUMINUM HYDROXIDE/SIMETHICONE 30ML UDC PO STA (17:01)
[2022-12-10 17:02] LABS: CHLORIDE 109 mEq/L (98-107)
[2022-12-10 17:05] LABS: PROTHROMBIN TIME 10.5 sec (9.6-11.0)
[2022-12-10] MEDS ORDERED: DICYCLOMINE 10 MG/5 ML ORAL SYR PO NR (17:09)
[2022-12-10] MEDS ORDERED: DICYCLOMINE HCL 10MG CAPSULE PO NR (17:15)
[2022-12-10] MEDS ORDERED: VISCOUS LIDOCAINE 2% 15 ML UDC PO NR (17:15)
[2022-12-10] MEDS ORDERED: MAGNESIUM/ALUMINUM HYDROXIDE/SIMETHICONE 30ML UDC PO NR (17:15)
[2022-12-10] MEDS ORDERED: LORAZEPAM 0.5MG TABLET PO ONE (19:00)
[2022-12-10 21:07] LABS: CLARITY URINE CLEAR (CLEAR); COLOR URINE YELLOW (YELLOW); KETONES URINE TRACE (NEGATIVE); LEUKOCYTE ESTERASE URINE NEGATIVE (NEGATIVE); NITRITE URINE NEGATIVE (NEGATIVE); OCCULT BLOOD URINE 1+ (NEGATIVE); PH URINE 5.5 (4.5-8.0); PROTEIN URINE NEGATIVE (NEGATIVE); SPECIFIC GRAVITY URINE 1.021 (1.005-1.030); UROBILINOGEN URINE 0.2 E.U./dL (0.2-1.0)
== END 2022-12-10 19:06 | disposition home or self-care (01) ==
LOC: ER 16:21
DX: R10.13 Epigastric pain (principal); K21.9 Gastro-esophageal reflux disease without esophagitis; Z90.710 Acquired absence of both cervix and uterus; Z79.899 Other long term (current) drug therapy
CPT/HCPCS: 36415; 71045; 74176; 80053; 81003; 83690; 83880; 84484; 85025; 85610; 93005; 99285; Z7610

== ENCOUNTER 2023-02-10 17:41 | Emergency (ER) | payer MEDICAID, OTHER ==
[~2023-02-10] VITALS: Ht 162.6 cm; Wt 59.0 kg
[2023-02-10 17:58] VITALS: BP 143/76
[2023-02-10 18:43] LABS: BASOPHILS % 0.4 % (0.0-2.0); EOSINOPHILS % 0.6 % (0.0-5.0); HEMATOCRIT. 34.6 % (36.0-48.0); HEMOGLOBIN. 11.1 g/dL (12.0-16.0); LYMPHOCYTES % 22.1 % (20.0-50.0); MEAN CORPUSCULAR HEMOGLOBIN 25.3 pg (28.0-32.0); MEAN CORPUSCULAR VOLUME 78.4 fL (81.0-99.0); MEAN PLATELET VOLUME 7.6 fl (7.4-10.4); MONOCYTES % 6.9 % (2.0-8.0); PLATELET 413 x1000/uL (130-400); RED BLOOD CELL COUNT 4.41 mill/uL (4.2-5.4)
[2023-02-10 18:44] LABS: CHLORIDE 108 mEq/L (98-107)
[2023-02-10] MEDS ORDERED: MAGNESIUM/ALUMINUM HYDROXIDE/SIMETHICONE 30ML UDC PO STA (19:46)
[2023-02-10] MEDS ORDERED: DICYCLOMINE 10 MG/5 ML ORAL SYR PO STA (19:46)
[2023-02-10] MEDS ORDERED: ONDANSETRON 4MG ODT PO STA (19:46)
[2023-02-10] MEDS ORDERED: VISCOUS LIDOCAINE 2% 15 ML UDC PO STA (19:46)
[2023-02-10] MEDS ORDERED: OMEP20CA14 PO (19:49)
[2023-02-10 20:08] LABS: CLARITY URINE CLEAR (CLEAR); COLOR URINE YELLOW (YELLOW); KETONES URINE NEGATIVE (NEGATIVE); LEUKOCYTE ESTERASE URINE NEGATIVE (NEGATIVE); NITRITE URINE NEGATIVE (NEGATIVE); OCCULT BLOOD URINE TRACE (NEGATIVE); PH URINE 6.5 (4.5-8.0); PROTEIN URINE NEGATIVE (NEGATIVE); SPECIFIC GRAVITY URINE 1.008 (1.005-1.030); UROBILINOGEN URINE 0.2 E.U./dL (0.2-1.0)
== END 2023-02-10 20:00 | disposition home or self-care (01) ==
LOC: ER 17:41
DX: K21.9 Gastro-esophageal reflux disease without esophagitis (principal); Z90.710 Acquired absence of both cervix and uterus; Z90.49 Acquired absence of other specified parts of digestive tract; Z79.899 Other long term (current) drug therapy
CPT/HCPCS: 36415; 80053; 81003; 83690; 85025; 99284; Q0162

== ENCOUNTER 2023-03-09 08:56 | Emergency (ER) | payer MEDICAID ==
[~2023-03-09] VITALS: Ht 162.6 cm; Wt 125.0 kg
[~2023-03-09 08:56] MED LIST changes: +OMEP20CA14 PO
[2023-03-09 09:00] VITALS: TEMP 98.4; O2SAT 99
[2023-03-09 10:08] LABS: BASOPHILS % 0.5 % (0.0-2.0); EOSINOPHILS % 1.5 % (0.0-5.0); HEMATOCRIT. 35.4 % (36.0-48.0); HEMOGLOBIN. 11.9 g/dL (12.0-16.0); LYMPHOCYTES % 33.9 % (20.0-50.0); MEAN CORPUSCULAR HEMOGLOBIN 26.4 pg (28.0-32.0); MEAN CORPUSCULAR VOLUME 78.7 fL (81.0-99.0); MEAN PLATELET VOLUME 7.2 fl (7.4-10.4); MONOCYTES % 8.3 % (2.0-8.0); NEUTROPHILS % 55.8 % (40.0-76.0); PLATELET 376 x1000/uL (130-400); RED CELL DISTRIBUTION WIDTH 17.9 % (11.6-14.6)
[2023-03-09 10:14] LABS: CHLORIDE 109 mEq/L (98-107)
[2023-03-09 10:36] LABS: INR 0.9
[2023-03-09 10:46] LABS: CLARITY URINE CLEAR (CLEAR); COLOR URINE YELLOW (YELLOW); KETONES URINE NEGATIVE (NEGATIVE); LEUKOCYTE ESTERASE URINE NEGATIVE (NEGATIVE); NITRITE URINE NEGATIVE (NEGATIVE); OCCULT BLOOD URINE TRACE (NEGATIVE); PROTEIN URINE NEGATIVE (NEGATIVE); UROBILINOGEN URINE 0.2 E.U./dL (0.2-1.0)
[2023-03-09] MEDS ORDERED: VISCOUS LIDOCAINE 2% 15 ML UDC PO STA (12:16)
[2023-03-09] MEDS ORDERED: MAGNESIUM/ALUMINUM HYDROXIDE/SIMETHICONE 30ML UDC PO STA (12:16)
[2023-03-09] MEDS ORDERED: DICYCLOMINE 10 MG/5 ML ORAL SYR PO STA (12:16)
[2023-03-09 14:19] VITALS: BP 141/74; PULSE 89; RESP 14
== END 2023-03-09 14:10 | disposition home or self-care (01) ==
LOC: ER 08:56
DX: K21.9 Gastro-esophageal reflux disease without esophagitis (principal); Z88.5 Allergy status to narcotic agent; Z88.6 Allergy status to analgesic agent; Z79.899 Other long term (current) drug therapy; Z90.49 Acquired absence of other specified parts of digestive tract
CPT/HCPCS: 80053; 81003; 85025; 85610; 84484; 36415; 93005; 99284; Z7610

== ENCOUNTER 2023-03-19 09:39 | Emergency (ER) | payer MEDICAID ==
[~2023-03-19] VITALS: Ht 157.5 cm; Wt 58.9 kg
[2023-03-19 09:45] VITALS: BP 148/82; PULSE 100; RESP 20; TEMP 98.6; O2SAT 99
[2023-03-19 10:49] LABS: BASOPHILS % 0.9 % (0.0-2.0); EOSINOPHILS % 1.6 % (0.0-5.0); HEMATOCRIT. 35.7 % (36.0-48.0); HEMOGLOBIN. 11.8 g/dL (12.0-16.0); LYMPHOCYTES % 27.8 % (20.0-50.0); MEAN CORPUSCULAR HEMOGLOBIN 25.9 pg (28.0-32.0); MEAN CORPUSCULAR VOLUME 78.8 fL (81.0-99.0); MONOCYTES % 8.3 % (2.0-8.0); NEUTROPHILS % 61.4 % (40.0-76.0); PLATELET 384 x1000/uL (130-400); RED BLOOD CELL COUNT 4.53 mill/uL (4.2-5.4); RED CELL DISTRIBUTION WIDTH 17.6 % (11.6-14.6)
[2023-03-19 10:59] LABS: CHLORIDE 110 mEq/L (98-107)
[2023-03-19] MEDS ORDERED: MAGNESIUM/ALUMINUM HYDROXIDE/SIMETHICONE 30ML UDC PO ONE (11:00)
[2023-03-19] MEDS ORDERED: FAMOTIDINE 20MG TABLET PO ONE (11:00)
[2023-03-19] MEDS ORDERED: DIPH103G TP (11:16)
[2023-03-19] MEDS ORDERED: MAG-55 MT (11:16)
[2023-03-19] MEDS ORDERED: CALA177S9 TP (11:16)
== END 2023-03-19 12:20 | disposition home or self-care (01) ==
LOC: ER 09:39
DX: K21.9 Gastro-esophageal reflux disease without esophagitis (principal); Z90.710 Acquired absence of both cervix and uterus; Z90.49 Acquired absence of other specified parts of digestive tract; Z79.899 Other long term (current) drug therapy
CPT/HCPCS: 36415; 71045; 80053; 84484; 85025; 93005; 99285

== ENCOUNTER 2023-03-30 10:11 | Emergency (ER) | payer MEDICAID ==
[~2023-03-30] VITALS: Ht 157.5 cm; Wt 64.3 kg
[~2023-03-30 10:11] MED LIST changes: +CALA177S9 TP; +DIPH103G TP
[2023-03-30 10:29] VITALS: TEMP 98.2; O2SAT 99
[2023-03-30 10:47] LABS: BASOPHILS % 0.8 % (0.0-2.0); DIFFERENTIAL COMMENT 0; EOSINOPHILS % 1.2 % (0.0-5.0); HEMOGLOBIN. 12.2 g/dL (12.0-16.0); LYMPHOCYTES % 30.7 % (20.0-50.0); MEAN CORPUSCULAR HEMOGLOBIN 25.8 pg (28.0-32.0); MEAN CORPUSCULAR HGB CONC 32.8 g/dL (31.0-37.0); MEAN CORPUSCULAR VOLUME 78.5 fL (81.0-99.0); MEAN PLATELET VOLUME 7.2 fl (7.4-10.4); MONOCYTES % 9.8 % (2.0-8.0); NEUTROPHILS % 57.5 % (40.0-76.0); PLATELET 403 x1000/uL (130-400); RED BLOOD CELL COUNT 4.71 mill/uL (4.2-5.4); RED CELL DISTRIBUTION WIDTH 17.7 % (11.6-14.6); WHITE BLOOD COUNT 10.7 x1000/uL (4.5-11.0)
[2023-03-30 10:57] LABS: CALCIUM 9.1 mg/dL (8.5-10.1); CHLORIDE 109 mEq/L (98-107); INDEX HEMOLYSI 1 (1-3); INDEX ICTERIC 1 (1-4); INDEX LIPEMIC 1 (1-3); POTASSIUM 3.6 mEq/L (3.5-5.1); SODIUM 139 mEq/L (136-145)
[2023-03-30 11:04] LABS: ALANINE AMINOTRANSFERASE 22 IU/L (13-61); ALBUMIN 3.7 g/dL (3.4-5.0); ASPARTATE AMINOTRANSFERASE 14 IU/L (15-37); BILIRUBIN TOTAL 0.3 mg/dL (0.1-1.0); CARBON DIOXIDE 26 mEq/L (21-32); CREATININE 0.7 mg/dL (0.6-1.3); GLUCOSE 101 mg/dL (70-105); PROTEIN TOTAL 8.3 g/dL (6.0-8.3); UREA NITROGEN BLOOD 11 mg/dL (7-21)
[2023-03-30] MEDS ORDERED: MAGNESIUM/ALUMINUM HYDROXIDE/SIMETHICONE 30ML UDC PO STA (12:18)
[2023-03-30 12:28] VITALS: BP 149/67; PULSE 92; RESP 15
[2023-03-30 12:50] LABS: CLARITY URINE CLEAR (CLEAR); COLOR URINE YELLOW (YELLOW); GLUCOSE URINE NEGATIVE (NEGATIVE); KETONES URINE NEGATIVE (NEGATIVE); LEUKOCYTE ESTERASE URINE TRACE (NEGATIVE); NITRITE URINE NEGATIVE (NEGATIVE); OCCULT BLOOD URINE NEGATIVE (NEGATIVE); PROTEIN URINE TRACE (NEGATIVE); SPECIFIC GRAVITY URINE 1.024 (1.005-1.030); UROBILINOGEN URINE 0.2 E.U./dL (0.2-1.0)
[2023-03-30 13:03] LABS: BACTERIA URINE 2+; SQUAMOUS EPITHELIAL CELL URINE 3+ /lpf (RARE/1+); YEAST URINE NONE SEEN
[2023-03-30] MEDS ORDERED: ONDA4TAB50 MT (13:04)
[2023-03-30 13:06] LABS: RBC URINE 0-2 /hpf (0-2); WBC URINE 0-2 /hpf (0-2)
[2023-03-30] MEDS ORDERED: ONDANSETRON 4MG ODT PO ONE (13:15)
== END 2023-03-30 13:21 | disposition home or self-care (01) ==
LOC: ER 10:11
DX: R10.13 Epigastric pain (principal); Z88.5 Allergy status to narcotic agent; Z88.6 Allergy status to analgesic agent; Z79.899 Other long term (current) drug therapy; Z90.49 Acquired absence of other specified parts of digestive tract
CPT/HCPCS: 99283; 80053; 81003; 83690; 85025; 36415; Q0162

== ENCOUNTER 2023-04-18 15:00 | Emergency (ER) | payer MEDICAID ==
[~2023-04-18] VITALS: Ht 160 cm; Wt 63.0 kg
[2023-04-18 15:08] VITALS: O2SAT 97
[2023-04-18 15:54] LABS: CLARITY URINE CLEAR (CLEAR); COLOR URINE YELLOW (YELLOW); GLUCOSE URINE NEGATIVE (NEGATIVE); KETONES URINE TRACE (NEGATIVE); LEUKOCYTE ESTERASE URINE NEGATIVE (NEGATIVE); NITRITE URINE NEGATIVE (NEGATIVE); OCCULT BLOOD URINE TRACE (NEGATIVE); PH URINE 5.5 (4.5-8.0); PROTEIN URINE TRACE (NEGATIVE); SPECIFIC GRAVITY URINE 1.025 (1.005-1.030)
[2023-04-18 15:55] LABS: BASOPHILS % 0.5 % (0.0-2.0); DIFFERENTIAL COMMENT 0; EOSINOPHILS % 1.5 % (0.0-5.0); HEMOGLOBIN. 11.4 g/dL (12.0-16.0); LYMPHOCYTES % 26.2 % (20.0-50.0); MEAN CORPUSCULAR HEMOGLOBIN 25.5 pg (28.0-32.0); MEAN CORPUSCULAR HGB CONC 32.5 g/dL (31.0-37.0); MEAN CORPUSCULAR VOLUME 78.3 fL (81.0-99.0); MEAN PLATELET VOLUME 7.5 fl (7.4-10.4); MONOCYTES % 8.3 % (2.0-8.0); NEUTROPHILS % 63.5 % (40.0-76.0); PLATELET 370 x1000/uL (130-400); RED BLOOD CELL COUNT 4.47 mill/uL (4.2-5.4); RED CELL DISTRIBUTION WIDTH 16.9 % (11.6-14.6); WHITE BLOOD COUNT 11.1 x1000/uL (4.5-11.0)
[2023-04-18 15:56] LABS: CHLORIDE 106 mEq/L (98-107); INDEX HEMOLYSI 1 (1-3); INDEX ICTERIC 1 (1-4); INDEX LIPEMIC 1 (1-3); POTASSIUM 4.1 mEq/L (3.5-5.1); SODIUM 138 mEq/L (136-145)
[2023-04-18 15:57] LABS: SQUAMOUS EPITHELIAL CELL URINE 1+ /lpf (RARE/1+); WBC URINE 0-2 /hpf (0-2); YEAST URINE NONE SEEN
[2023-04-18 16:05] LABS: PROTHROMBIN TIME 10.4 sec (9.6-11.0)
[2023-04-18 16:07] LABS: CARBON DIOXIDE 25 mEq/L (21-32)
[2023-04-18 16:08] LABS: ALANINE AMINOTRANSFERASE 31 IU/L (13-61); ALBUMIN 3.7 g/dL (3.4-5.0); ASPARTATE AMINOTRANSFERASE 26 IU/L (15-37); BILIRUBIN TOTAL 0.4 mg/dL (0.1-1.0); CALCIUM 9.5 mg/dL (8.5-10.1); CREATININE 0.8 mg/dL (0.6-1.3); GLUCOSE 106 mg/dL (70-105); NT PRO B-TYPE NATRIURETIC PEP 37 pg/mL (5-125); PROTEIN TOTAL 8.2 g/dL (6.0-8.3); TROPONIN I HIGH SENSITIVITY 8 ng/L (<54); UREA NITROGEN BLOOD 12 mg/dL (7-21)
[2023-04-18 16:14] LABS: BACTERIA URINE 1+
[2023-04-18] MEDS ORDERED: MAGNESIUM/ALUMINUM HYDROXIDE/SIMETHICONE 30ML UDC PO ONE (16:15)
[2023-04-18] MEDS ORDERED: ONDANSETRON 4MG ODT PO ONE (16:15)
[2023-04-18] MEDS ORDERED: FAMOTIDINE 20MG TABLET PO SCH (16:15)
[2023-04-18] MEDS ORDERED: MAG-55 MT (17:29)
[2023-04-18] MEDS ORDERED: FAMO40TA70 MT (17:29)
[2023-04-18 17:41] VITALS: BP 132/62; PULSE 102; RESP 18; TEMP 98.2
== END 2023-04-18 17:43 | disposition home or self-care (01) ==
LOC: ER 15:00
DX: K21.9 Gastro-esophageal reflux disease without esophagitis (principal); Z88.5 Allergy status to narcotic agent; Z88.6 Allergy status to analgesic agent; Z79.899 Other long term (current) drug therapy; Z90.49 Acquired absence of other specified parts of digestive tract
CPT/HCPCS: 99284; 80053; 81003; 83880; 83690; 85025; 85610; 84484; 36415; 93005; Q0162

== ENCOUNTER 2023-04-22 10:42 | Emergency (ER) | payer MEDICAID, OTHER ==
[~2023-04-22] VITALS: Ht 160 cm; Wt 61.0 kg
[~2023-04-22 10:42] MED LIST changes: +FAMO40TA70 MT
[2023-04-22 10:54] VITALS: O2SAT 100
[2023-04-22] MEDS ORDERED: ONDANSETRON HCL 4MG TABLET PO ONE ×2 (12:00)
[2023-04-22] MEDS ORDERED: MAGNESIUM/ALUMINUM HYDROXIDE/SIMETHICONE 30ML UDC PO ONE (12:00)
[2023-04-22 13:09] LABS: BASOPHILS % 0.6 % (0.0-2.0); DIFFERENTIAL COMMENT 0; EOSINOPHILS % 1.6 % (0.0-5.0); HEMATOCRIT. 36.6 % (36.0-48.0); HEMOGLOBIN. 11.9 g/dL (12.0-16.0); LYMPHOCYTES % 24.5 % (20.0-50.0); MEAN CORPUSCULAR HEMOGLOBIN 25.5 pg (28.0-32.0); MEAN CORPUSCULAR HGB CONC 32.6 g/dL (31.0-37.0); MEAN CORPUSCULAR VOLUME 78.2 fL (81.0-99.0); MEAN PLATELET VOLUME 7.3 fl (7.4-10.4); MONOCYTES % 9.6 % (2.0-8.0); NEUTROPHILS % 63.7 % (40.0-76.0); PLATELET 405 x1000/uL (130-400); RED BLOOD CELL COUNT 4.69 mill/uL (4.2-5.4); RED CELL DISTRIBUTION WIDTH 17.6 % (11.6-14.6); WHITE BLOOD COUNT 8.2 x1000/uL (4.5-11.0)
[2023-04-22] MEDS ORDERED: KETOROLAC 15MG/ML VIAL IM ONE (13:15)
[2023-04-22 13:20] LABS: CHLORIDE 108 mEq/L (98-107); INDEX HEMOLYSI 1 (1-3); INDEX ICTERIC 1 (1-4); INDEX LIPEMIC 1 (1-3); POTASSIUM 3.9 mEq/L (3.5-5.1); SODIUM 139 mEq/L (136-145)
[2023-04-22 13:25] LABS: ALANINE AMINOTRANSFERASE 29 IU/L (13-61); ALBUMIN 3.7 g/dL (3.4-5.0); ASPARTATE AMINOTRANSFERASE 21 IU/L (15-37); BILIRUBIN TOTAL 0.4 mg/dL (0.1-1.0); CALCIUM 9.3 mg/dL (8.5-10.1); CARBON DIOXIDE 26 mEq/L (21-32); CREATININE 0.7 mg/dL (0.6-1.3); GLUCOSE 107 mg/dL (70-105); PROTEIN TOTAL 8.1 g/dL (6.0-8.3); UREA NITROGEN BLOOD 7 mg/dL (7-21)
[2023-04-22 14:09] VITALS: BP 146/87; PULSE 63; RESP 16; TEMP 98.9
== END 2023-04-22 14:10 | disposition home or self-care (01) ==
LOC: ER 10:42
DX: K21.9 Gastro-esophageal reflux disease without esophagitis (principal); Z90.49 Acquired absence of other specified parts of digestive tract; Z90.710 Acquired absence of both cervix and uterus; Z79.899 Other long term (current) drug therapy
CPT/HCPCS: 99283; 80053; 83690; 85025; 36415; Q0162; J1885

== ENCOUNTER 2023-04-27 10:16 | Emergency (ER) | payer MEDICAID ==
[~2023-04-27] VITALS: Ht 162.6 cm; Wt 70.0 kg
[2023-04-27 10:46] VITALS: BP 137/71; PULSE 111; RESP 18; TEMP 98.5; O2SAT 100
[2023-04-27] MEDS ORDERED: METOCLOPRAMIDE 10MG/10 ML UDC PO ONE (11:00)
[2023-04-27] MEDS ORDERED: MAGNESIUM/ALUMINUM HYDROXIDE/SIMETHICONE 30ML UDC PO ONE (11:00)
[2023-04-27 12:07] LABS: BASOPHILS % 0.6 % (0.0-2.0); DIFFERENTIAL COMMENT 0; EOSINOPHILS % 1.2 % (0.0-5.0); HEMATOCRIT. 38.8 % (36.0-48.0); HEMOGLOBIN. 12.6 g/dL (12.0-16.0); LYMPHOCYTES % 23.3 % (20.0-50.0); MEAN CORPUSCULAR HEMOGLOBIN 25.5 pg (28.0-32.0); MEAN CORPUSCULAR HGB CONC 32.5 g/dL (31.0-37.0); MEAN CORPUSCULAR VOLUME 78.5 fL (81.0-99.0); MEAN PLATELET VOLUME 7.3 fl (7.4-10.4); MONOCYTES % 9.1 % (2.0-8.0); NEUTROPHILS % 65.8 % (40.0-76.0); PLATELET 424 x1000/uL (130-400); RED BLOOD CELL COUNT 4.95 mill/uL (4.2-5.4); RED CELL DISTRIBUTION WIDTH 17.2 % (11.6-14.6); WHITE BLOOD COUNT 12.1 x1000/uL (4.5-11.0)
[2023-04-27 12:17] LABS: INDEX HEMOLYSI 1 (1-3); INDEX ICTERIC 1 (1-4); INDEX LIPEMIC 1 (1-3)
[2023-04-27 12:28] LABS: ALANINE AMINOTRANSFERASE 29 IU/L (13-61); ALBUMIN 3.8 g/dL (3.4-5.0); ASPARTATE AMINOTRANSFERASE 27 IU/L (15-37); BILIRUBIN TOTAL 0.4 mg/dL (0.1-1.0); CALCIUM 9.5 mg/dL (8.5-10.1); CARBON DIOXIDE 24 mEq/L (21-32); CREATININE 0.7 mg/dL (0.6-1.3); GLUCOSE 109 mg/dL (70-105); PROTEIN TOTAL 8.7 g/dL (6.0-8.3); TROPONIN I HIGH SENSITIVITY 6 ng/L (<54); UREA NITROGEN BLOOD 9 mg/dL (7-21)
[2023-04-27] MEDS ORDERED: ONDANSETRON 4MG ODT PO ONE (12:45)
[2023-04-27] MEDS ORDERED: ONDANSETRON 4MG ODT PO NR (13:30)
[2023-04-27 13:40] LABS: CHLORIDE 110 mEq/L (98-107); POTASSIUM 3.9 mEq/L (3.5-5.1); SODIUM 135 mEq/L (136-145)
== END 2023-04-27 14:00 | disposition home or self-care (01) ==
LOC: ER 11:07
DX: K21.9 Gastro-esophageal reflux disease without esophagitis (principal); Z90.49 Acquired absence of other specified parts of digestive tract; Z90.710 Acquired absence of both cervix and uterus; Z79.899 Other long term (current) drug therapy
CPT/HCPCS: 99285; 71045; 80053; 83690; 85025; 84484; 36415; Q0162; J8597

== ENCOUNTER 2023-05-24 08:54 | Emergency (ER) | payer MEDICAID ==
[~2023-05-24] VITALS: Ht 162.6 cm; Wt 70.0 kg
[2023-05-24 08:57] VITALS: O2SAT 100
[2023-05-24] MEDS ORDERED: ONDANSETRON 4MG ODT PO STA (09:24)
[2023-05-24] MEDS ORDERED: FAMOTIDINE 20MG TABLET PO ONE (09:30)
[2023-05-24 10:13] LABS: BASOPHILS % 0.6 % (0.0-2.0); DIFFERENTIAL COMMENT 0; EOSINOPHILS % 1.7 % (0.0-5.0); HEMATOCRIT. 38.4 % (36.0-48.0); HEMOGLOBIN. 12.2 g/dL (12.0-16.0); LYMPHOCYTES % 29.8 % (20.0-50.0); MEAN CORPUSCULAR HEMOGLOBIN 24.9 pg (28.0-32.0); MEAN CORPUSCULAR HGB CONC 31.7 g/dL (31.0-37.0); MEAN CORPUSCULAR VOLUME 78.4 fL (81.0-99.0); MEAN PLATELET VOLUME 7.3 fl (7.4-10.4); NEUTROPHILS % 59.9 % (40.0-76.0); PLATELET 416 x1000/uL (130-400); RED BLOOD CELL COUNT 4.91 mill/uL (4.2-5.4); RED CELL DISTRIBUTION WIDTH 16.7 % (11.6-14.6); WHITE BLOOD COUNT 9.4 x1000/uL (4.5-11.0)
[2023-05-24 10:23] LABS: INR 0.9
[2023-05-24 10:33] LABS: CHLORIDE 107 mEq/L (98-107); INDEX HEMOLYSI 1 (1-3); INDEX ICTERIC 1 (1-4); INDEX LIPEMIC 1 (1-3); SODIUM 139 mEq/L (136-145)
[2023-05-24] MEDS ORDERED: OMEP20CA14 PO (10:35)
[2023-05-24 10:44] LABS: ALANINE AMINOTRANSFERASE 22 IU/L (13-61); ALBUMIN 3.5 g/dL (3.4-5.0); ASPARTATE AMINOTRANSFERASE 14 IU/L (15-37); BILIRUBIN TOTAL 0.3 mg/dL (0.1-1.0); CALCIUM 9.3 mg/dL (8.5-10.1); CARBON DIOXIDE 27 mEq/L (21-32); CREATININE 0.6 mg/dL (0.6-1.3); GLUCOSE 91 mg/dL (70-105); TROPONIN I HIGH SENSITIVITY 6 ng/L (<54); UREA NITROGEN BLOOD 10 mg/dL (7-21)
[2023-05-24 11:23] VITALS: BP 124/87; PULSE 98; RESP 16; TEMP 98.6
== END 2023-05-24 11:24 | disposition home or self-care (01) ==
LOC: ER 08:54
DX: K21.9 Gastro-esophageal reflux disease without esophagitis (principal); Z88.5 Allergy status to narcotic agent; Z79.899 Other long term (current) drug therapy; Z90.49 Acquired absence of other specified parts of digestive tract
CPT/HCPCS: 99283; 80053; 83690; 85025; 85610; 84484; 36415; Q0162

== ENCOUNTER 2023-05-31 09:01 | Emergency (ER) | payer MEDICAID ==
[~2023-05-31] VITALS: Ht 157.5 cm; Wt 75.0 kg
[2023-05-31 09:31] VITALS: BP 139/86; PULSE 105; RESP 18; TEMP 98.2; O2SAT 98
[2023-05-31] MEDS ORDERED: MAGNESIUM/ALUMINUM HYDROXIDE/SIMETHICONE 30ML UDC PO STA (09:35)
[2023-05-31 10:09] LABS: BASOPHILS % 0.5 % (0.0-2.0); DIFFERENTIAL COMMENT 0; EOSINOPHILS % 1.7 % (0.0-5.0); HEMATOCRIT. 35.5 % (36.0-48.0); HEMOGLOBIN. 11.6 g/dL (12.0-16.0); LYMPHOCYTES % 28.2 % (20.0-50.0); MEAN CORPUSCULAR HEMOGLOBIN 25.3 pg (28.0-32.0); MEAN CORPUSCULAR HGB CONC 32.7 g/dL (31.0-37.0); MEAN CORPUSCULAR VOLUME 77.5 fL (81.0-99.0); MEAN PLATELET VOLUME 7.4 fl (7.4-10.4); MONOCYTES % 9.5 % (2.0-8.0); NEUTROPHILS % 60.1 % (40.0-76.0); PLATELET 365 x1000/uL (130-400); RED BLOOD CELL COUNT 4.59 mill/uL (4.2-5.4); RED CELL DISTRIBUTION WIDTH 16.5 % (11.6-14.6); WHITE BLOOD COUNT 9.9 x1000/uL (4.5-11.0)
[2023-05-31 10:32] LABS: CHLORIDE 106 mEq/L (98-107); INDEX HEMOLYSI 1 (1-3); INDEX ICTERIC 1 (1-4); INDEX LIPEMIC 1 (1-3); POTASSIUM 3.8 mEq/L (3.5-5.1); SODIUM 139 mEq/L (136-145)
[2023-05-31 10:42] LABS: ALANINE AMINOTRANSFERASE 24 IU/L (13-61); ALBUMIN 3.4 g/dL (3.4-5.0); ASPARTATE AMINOTRANSFERASE 19 IU/L (15-37); BILIRUBIN TOTAL 0.3 mg/dL (0.1-1.0); CARBON DIOXIDE 25 mEq/L (21-32); CREATININE 0.7 mg/dL (0.6-1.3); GLUCOSE 97 mg/dL (70-105); PROTEIN TOTAL 7.7 g/dL (6.0-8.3); TROPONIN I HIGH SENSITIVITY 5 ng/L (<54); UREA NITROGEN BLOOD 7 mg/dL (7-21)
[2023-05-31 10:50] LABS: CLARITY URINE CLEAR (CLEAR); COLOR URINE YELLOW (YELLOW); GLUCOSE URINE NEGATIVE (NEGATIVE); KETONES URINE NEGATIVE (NEGATIVE); LEUKOCYTE ESTERASE URINE NEGATIVE (NEGATIVE); NITRITE URINE NEGATIVE (NEGATIVE); OCCULT BLOOD URINE NEGATIVE (NEGATIVE); PROTEIN URINE NEGATIVE (NEGATIVE); SPECIFIC GRAVITY URINE 1.008 (1.005-1.030); UROBILINOGEN URINE 0.2 E.U./dL (0.2-1.0)
== END 2023-05-31 12:48 | disposition home or self-care (01) ==
LOC: ER 09:01
DX: R10.13 Epigastric pain (principal); Z88.5 Allergy status to narcotic agent; Z79.899 Other long term (current) drug therapy; Z90.49 Acquired absence of other specified parts of digestive tract
CPT/HCPCS: 36415; 80053; 81003; 84484; 85025; 93005; 99284

== ENCOUNTER 2023-06-02 13:11 | Emergency (ER) | payer MEDICAID ==
[~2023-06-02] VITALS: Ht 165.1 cm; Wt 62.0 kg
[2023-06-02 13:29] VITALS: O2SAT 99
[2023-06-02 13:30] VITALS: BP 116/55; PULSE 91; RESP 20; TEMP 98.3
[2023-06-02] MEDS ORDERED: MAGNESIUM/ALUMINUM HYDROXIDE/SIMETHICONE 30ML UDC PO STA (13:37)
[2023-06-02 14:19] LABS: BASOPHILS % 0.6 % (0.0-2.0); DIFFERENTIAL COMMENT 0; EOSINOPHILS % 1.3 % (0.0-5.0); HEMATOCRIT. 34.8 % (36.0-48.0); HEMOGLOBIN. 11.4 g/dL (12.0-16.0); LYMPHOCYTES % 30.6 % (20.0-50.0); MEAN CORPUSCULAR HEMOGLOBIN 25.6 pg (28.0-32.0); MEAN CORPUSCULAR HGB CONC 32.7 g/dL (31.0-37.0); MEAN CORPUSCULAR VOLUME 78.1 fL (81.0-99.0); MEAN PLATELET VOLUME 7.4 fl (7.4-10.4); MONOCYTES % 9.2 % (2.0-8.0); NEUTROPHILS % 58.3 % (40.0-76.0); PLATELET 380 x1000/uL (130-400); RED BLOOD CELL COUNT 4.46 mill/uL (4.2-5.4); RED CELL DISTRIBUTION WIDTH 17.1 % (11.6-14.6); WHITE BLOOD COUNT 10.8 x1000/uL (4.5-11.0)
[2023-06-02 14:35] LABS: CHLORIDE 109 mEq/L (98-107); INDEX HEMOLYSI 1 (1-3); INDEX ICTERIC 1 (1-4); INDEX LIPEMIC 1 (1-3); POTASSIUM 3.9 mEq/L (3.5-5.1); SODIUM 143 mEq/L (136-145)
[2023-06-02 14:46] LABS: ALANINE AMINOTRANSFERASE 24 IU/L (13-61); ALBUMIN 3.2 g/dL (3.4-5.0); ASPARTATE AMINOTRANSFERASE 18 IU/L (15-37); BILIRUBIN TOTAL 0.3 mg/dL (0.1-1.0); CALCIUM 8.9 mg/dL (8.5-10.1); CARBON DIOXIDE 31 mEq/L (21-32); CREATININE 0.7 mg/dL (0.6-1.3); GLUCOSE 109 mg/dL (70-105); PROTEIN TOTAL 7.3 g/dL (6.0-8.3); TROPONIN I HIGH SENSITIVITY 6 ng/L (<54); UREA NITROGEN BLOOD 13 mg/dL (7-21)
[2023-06-02] MEDS ORDERED: MAGNESIUM/ALUMINUM HYDROXIDE/SIMETHICONE 30ML UDC PO NR (16:30)
[2023-06-02] MEDS ORDERED: MAG355OR21 MT (17:12)
== END 2023-06-02 17:35 | disposition home or self-care (01) ==
LOC: ER 13:11
DX: R10.13 Epigastric pain (principal); M19.90 Unspecified osteoarthritis, unspecified site; K21.9 Gastro-esophageal reflux disease without esophagitis; Z90.49 Acquired absence of other specified parts of digestive tract; Z90.710 Acquired absence of both cervix and uterus; Z88.5 Allergy status to narcotic agent; Z79.899 Other long term (current) drug therapy
CPT/HCPCS: 36415; 71045; 80053; 84484; 85025; 93005; 99285

== ENCOUNTER 2023-06-18 09:34 | Emergency (ER) | payer MEDICAID ==
[~2023-06-18] VITALS: Ht 160 cm; Wt 64.0 kg
[2023-06-18 09:57] VITALS: BP 126/75; PULSE 103; RESP 18; TEMP 98.2; O2SAT 100
[2023-06-18] MEDS ORDERED: MAGNESIUM/ALUMINUM HYDROXIDE/SIMETHICONE 30ML UDC PO ONE ×2 (10:00→13:15)
[2023-06-18 10:28] LABS: BASOPHILS % 0.5 % (0.0-2.0); DIFFERENTIAL COMMENT 0; EOSINOPHILS % 2.5 % (0.0-5.0); HEMATOCRIT. 38.9 % (36.0-48.0); HEMOGLOBIN. 12.5 g/dL (12.0-16.0); LYMPHOCYTES % 31.6 % (20.0-50.0); MEAN CORPUSCULAR HGB CONC 32.1 g/dL (31.0-37.0); MEAN PLATELET VOLUME 7.5 fl (7.4-10.4); MONOCYTES % 9.6 % (2.0-8.0); NEUTROPHILS % 55.8 % (40.0-76.0); PLATELET 384 x1000/uL (130-400); RED BLOOD CELL COUNT 4.99 mill/uL (4.2-5.4); RED CELL DISTRIBUTION WIDTH 17.3 % (11.6-14.6); WHITE BLOOD COUNT 8.3 x1000/uL (4.5-11.0)
[2023-06-18 10:32] LABS: CHLORIDE 107 mEq/L (98-107); INDEX HEMOLYSI 1 (1-3); INDEX ICTERIC 1 (1-4); INDEX LIPEMIC 1 (1-3); POTASSIUM 4.1 mEq/L (3.5-5.1); SODIUM 139 mEq/L (136-145)
[2023-06-18 10:44] LABS: ALANINE AMINOTRANSFERASE 23 IU/L (13-61); ALBUMIN 3.7 g/dL (3.4-5.0); ASPARTATE AMINOTRANSFERASE 19 IU/L (15-37); BILIRUBIN TOTAL 0.8 mg/dL (0.1-1.0); CALCIUM 9.4 mg/dL (8.5-10.1); CARBON DIOXIDE 25 mEq/L (21-32); CREATININE 0.7 mg/dL (0.6-1.3); GLUCOSE 100 mg/dL (70-105); TROPONIN I HIGH SENSITIVITY 5 ng/L (<54); UREA NITROGEN BLOOD 7 mg/dL (7-21)
== END 2023-06-18 13:33 | disposition home or self-care (01) ==
LOC: ER 09:34
DX: R10.13 Epigastric pain (principal); K21.9 Gastro-esophageal reflux disease without esophagitis; Z98.51 Tubal ligation status; Z90.49 Acquired absence of other specified parts of digestive tract; Z79.899 Other long term (current) drug therapy
CPT/HCPCS: 36415; 80053; 84484; 85025; 99283

== ENCOUNTER 2023-06-22 11:33 | Emergency (ER) | payer MEDICAID ==
[~2023-06-22] VITALS: Ht 162.6 cm; Wt 59.0 kg
[2023-06-22 12:08] VITALS: BP 135/70; PULSE 101; RESP 16; TEMP 98.5; O2SAT 98
[2023-06-22 13:08] LABS: BASOPHILS % 0.6 % (0.0-2.0); DIFFERENTIAL COMMENT 0; EOSINOPHILS % 1.3 % (0.0-5.0); HEMOGLOBIN. 11.8 g/dL (12.0-16.0); LYMPHOCYTES % 27.1 % (20.0-50.0); MEAN CORPUSCULAR HEMOGLOBIN 25.4 pg (28.0-32.0); MEAN CORPUSCULAR HGB CONC 32.6 g/dL (31.0-37.0); MEAN CORPUSCULAR VOLUME 77.8 fL (81.0-99.0); MEAN PLATELET VOLUME 7.3 fl (7.4-10.4); MONOCYTES % 9.9 % (2.0-8.0); NEUTROPHILS % 61.1 % (40.0-76.0); PLATELET 372 x1000/uL (130-400); RED BLOOD CELL COUNT 4.63 mill/uL (4.2-5.4); RED CELL DISTRIBUTION WIDTH 17.2 % (11.6-14.6); WHITE BLOOD COUNT 9.4 x1000/uL (4.5-11.0)
[2023-06-22 13:22] LABS: CLARITY URINE CLEAR (CLEAR); COLOR URINE YELLOW (YELLOW); GLUCOSE URINE NEGATIVE (NEGATIVE); KETONES URINE NEGATIVE (NEGATIVE); LEUKOCYTE ESTERASE URINE 1+ (NEGATIVE); NITRITE URINE NEGATIVE (NEGATIVE); OCCULT BLOOD URINE TRACE (NEGATIVE); PH URINE 5.5 (4.5-8.0); PROTEIN URINE NEGATIVE (NEGATIVE); SPECIFIC GRAVITY URINE 1.015 (1.005-1.030); UROBILINOGEN URINE 0.2 E.U./dL (0.2-1.0)
[2023-06-22 13:26] LABS: RBC URINE 0-2 /hpf (0-2); SQUAMOUS EPITHELIAL CELL URINE 1+ /lpf (RARE/1+); YEAST URINE NONE SEEN
[2023-06-22 13:29] LABS: CHLORIDE 108 mEq/L (98-107); INDEX HEMOLYSI 1 (1-3); INDEX ICTERIC 1 (1-4); INDEX LIPEMIC 1 (1-3); POTASSIUM 3.9 mEq/L (3.5-5.1); SODIUM 139 mEq/L (136-145)
[2023-06-22 13:42] LABS: ALANINE AMINOTRANSFERASE 24 IU/L (13-61); ALBUMIN 3.6 g/dL (3.4-5.0); ASPARTATE AMINOTRANSFERASE 25 IU/L (15-37); BILIRUBIN TOTAL 0.7 mg/dL (0.1-1.0); CALCIUM 8.9 mg/dL (8.5-10.1); CARBON DIOXIDE 26 mEq/L (21-32); CREATININE 0.6 mg/dL (0.6-1.3); GLUCOSE 127 mg/dL (70-105); PROTEIN TOTAL 7.6 g/dL (6.0-8.3); TROPONIN I HIGH SENSITIVITY 7 ng/L (<54); UREA NITROGEN BLOOD 6 mg/dL (7-21)
[2023-06-22 13:43] LABS: MUCUS URINE 2+ /lpf (< = 2+)
[2023-06-22 13:44] LABS: BACTERIA URINE 2+; CALCIUM OXALATE CRYSTALS URINE 1+ /lpf
[2023-06-22] MEDS ORDERED: MAGNESIUM/ALUMINUM HYDROXIDE/SIMETHICONE 30ML UDC PO ONE (16:15)
== END 2023-06-22 15:27 | disposition home or self-care (01) ==
LOC: ER 12:20
DX: R10.13 Epigastric pain (principal); Z88.5 Allergy status to narcotic agent; Z79.899 Other long term (current) drug therapy; Z98.890 Other specified postprocedural states
CPT/HCPCS: 36415; 80053; 81003; 84484; 85025; 93005; 99284

== ENCOUNTER 2023-06-27 10:41 | Emergency (ER) | payer MEDICAID ==
[~2023-06-27] VITALS: Ht 154.9 cm; Wt 59.0 kg
[2023-06-27 10:44] VITALS: PULSE 97; RESP 14
[2023-06-27 10:52] VITALS: BP 128/63; TEMP 98.9; O2SAT 100
[2023-06-27] MEDS ORDERED: MAGNESIUM/ALUMINUM HYDROXIDE/SIMETHICONE 30ML UDC PO ONE (11:30)
[2023-06-27] MEDS ORDERED: FAMOTIDINE 20MG TABLET PO ONE (11:30)
[2023-06-27] MEDS ORDERED: MAG-55 MT (12:25)
[2023-06-27] MEDS ORDERED: FAMO20TA8 MT (12:25)
== END 2023-06-27 13:27 | disposition home or self-care (01) ==
LOC: ER 10:41
DX: K21.9 Gastro-esophageal reflux disease without esophagitis (principal); Z76.0 Encounter for issue of repeat prescription; Z79.899 Other long term (current) drug therapy; Z88.5 Allergy status to narcotic agent; Z98.890 Other specified postprocedural states
CPT/HCPCS: 99283

== ENCOUNTER 2023-07-03 13:29 | Emergency (ER) | payer MEDICAID ==
[~2023-07-03] VITALS: Ht 160 cm; Wt 75.0 kg
[2023-07-03 13:37] VITALS: O2SAT 99
[2023-07-03 14:31] LABS: DIFFERENTIAL COMMENT 0; HEMATOCRIT. 35.1 % (36.0-48.0); HEMOGLOBIN. 11.3 g/dL (12.0-16.0); LYMPHOCYTES % 31.6 % (20.0-50.0); MEAN CORPUSCULAR HEMOGLOBIN 25.1 pg (28.0-32.0); MEAN CORPUSCULAR HGB CONC 32.1 g/dL (31.0-37.0); MEAN PLATELET VOLUME 7.6 fl (7.4-10.4); MONOCYTES % 9.9 % (2.0-8.0); NEUTROPHILS % 53.5 % (40.0-76.0); PLATELET 368 x1000/uL (130-400); RED CELL DISTRIBUTION WIDTH 17.7 % (11.6-14.6); WHITE BLOOD COUNT 8.6 x1000/uL (4.5-11.0)
[2023-07-03 14:36] LABS: CHLORIDE 111 mEq/L (98-107); INDEX HEMOLYSI 1 (1-3); INDEX ICTERIC 1 (1-4); INDEX LIPEMIC 1 (1-3); SODIUM 143 mEq/L (136-145)
[2023-07-03 14:45] LABS: ALANINE AMINOTRANSFERASE 29 IU/L (13-61); ALBUMIN 3.7 g/dL (3.4-5.0); ASPARTATE AMINOTRANSFERASE 23 IU/L (15-37); BILIRUBIN TOTAL 0.6 mg/dL (0.1-1.0); CALCIUM 9.7 mg/dL (8.5-10.1); CARBON DIOXIDE 27 mEq/L (21-32); CREATININE 0.7 mg/dL (0.6-1.3); GLUCOSE 96 mg/dL (70-105); PROTEIN TOTAL 7.7 g/dL (6.0-8.3); TROPONIN I HIGH SENSITIVITY 9 ng/L (<54); UREA NITROGEN BLOOD 9 mg/dL (7-21)
[2023-07-03 15:41] LABS: CLARITY URINE CLEAR (CLEAR); COLOR URINE YELLOW (YELLOW); GLUCOSE URINE NEGATIVE (NEGATIVE); KETONES URINE TRACE (NEGATIVE); LEUKOCYTE ESTERASE URINE 1+ (NEGATIVE); NITRITE URINE NEGATIVE (NEGATIVE); OCCULT BLOOD URINE NEGATIVE (NEGATIVE); PH URINE 6.5 (4.5-8.0); PROTEIN URINE NEGATIVE (NEGATIVE); SPECIFIC GRAVITY URINE 1.006 (1.005-1.030); UROBILINOGEN URINE 0.2 E.U./dL (0.2-1.0)
[2023-07-03 15:45] LABS: RBC URINE 0-2 /hpf (0-2); SQUAMOUS EPITHELIAL CELL URINE 1+ /lpf (RARE/1+); YEAST URINE NONE SEEN
[2023-07-03] MEDS ORDERED: FAMOTIDINE 20MG TABLET PO ONE (15:45)
[2023-07-03] MEDS ORDERED: MAGNESIUM/ALUMINUM HYDROXIDE/SIMETHICONE 30ML UDC PO ONE (15:45)
[2023-07-03 16:13] LABS: BACTERIA URINE TRACE
[2023-07-03] MEDS ORDERED: FAMO-135 MT (16:16)
[2023-07-03] MEDS ORDERED: MAG-55 MT (16:16)
[2023-07-03 16:29] VITALS: BP 124/84; PULSE 108; RESP 18; TEMP 97.9
== END 2023-07-03 16:31 | disposition home or self-care (01) ==
LOC: ER 13:39
DX: K29.70 Gastritis, unspecified, without bleeding (principal); Z88.5 Allergy status to narcotic agent; Z79.899 Other long term (current) drug therapy; Z98.51 Tubal ligation status; Z90.49 Acquired absence of other specified parts of digestive tract; Z98.890 Other specified postprocedural states
CPT/HCPCS: 36415; 80053; 81003; 84484; 85025; 99283

== ENCOUNTER 2023-07-25 08:32 | Emergency (ER) | payer MEDICAID ==
[~2023-07-25] VITALS: Ht 165.1 cm; Wt 75.0 kg
[2023-07-25 08:40] VITALS: O2SAT 99
[2023-07-25] MEDS ORDERED: FAMOTIDINE 20MG TABLET PO ONE (09:30)
[2023-07-25] MEDS ORDERED: MAGNESIUM/ALUMINUM HYDROXIDE/SIMETHICONE 30ML UDC PO ONE (09:30)
[2023-07-25 09:42] LABS: BASOPHILS % 0.9 % (0.0-2.0); DIFFERENTIAL COMMENT 0; EOSINOPHILS % 1.1 % (0.0-5.0); HEMATOCRIT. 38.3 % (36.0-48.0); HEMOGLOBIN. 12.2 g/dL (12.0-16.0); LYMPHOCYTES % 29.8 % (20.0-50.0); MEAN CORPUSCULAR HEMOGLOBIN 25.3 pg (28.0-32.0); MEAN CORPUSCULAR HGB CONC 31.7 g/dL (31.0-37.0); MEAN CORPUSCULAR VOLUME 79.8 fL (81.0-99.0); MEAN PLATELET VOLUME 7.9 fl (7.4-10.4); MONOCYTES % 8.4 % (2.0-8.0); NEUTROPHILS % 59.8 % (40.0-76.0); PLATELET 358 x1000/uL (130-400); RED CELL DISTRIBUTION WIDTH 17.7 % (11.6-14.6)
[2023-07-25 09:58] LABS: ALANINE AMINOTRANSFERASE 15 IU/L (10-49); ALBUMIN 4.3 g/dL (3.2-4.8); ASPARTATE AMINOTRANSFERASE 17 IU/L (<34); BILIRUBIN TOTAL 0.4 mg/dL (0.1-1.0); CALCIUM 9.6 mg/dL (8.7-10.4); CARBON DIOXIDE 24 mEq/L (21-32); CHLORIDE 108 mEq/L (98-107); CREATININE 0.7 mg/dL (0.6-1.0); GLUCOSE 101 mg/dL (70-105); POTASSIUM 4.4 mEq/L (3.5-5.1); PROTEIN TOTAL 6.7 g/dL (6.0-8.3); SODIUM 142 mEq/L (136-145); TROPONIN I HIGH SENSITIVITY 5 ng/L (3.0-34); UREA NITROGEN BLOOD 9 mg/dL (9-23)
[2023-07-25 10:26] LABS: CLARITY URINE CLEAR (CLEAR); COLOR URINE YELLOW (YELLOW); GLUCOSE URINE NEGATIVE (NEGATIVE); KETONES URINE NEGATIVE (NEGATIVE); LEUKOCYTE ESTERASE URINE 1+ (NEGATIVE); NITRITE URINE NEGATIVE (NEGATIVE); OCCULT BLOOD URINE TRACE (NEGATIVE); PH URINE 5.5 (4.5-8.0); PROTEIN URINE NEGATIVE (NEGATIVE); SPECIFIC GRAVITY URINE 1.019 (1.005-1.030); UROBILINOGEN URINE 0.2 E.U./dL (0.2-1.0)
[2023-07-25 10:29] LABS: RBC URINE 0-2 /hpf (0-2); SQUAMOUS EPITHELIAL CELL URINE 1+ /lpf (RARE/1+); YEAST URINE NONE SEEN
[2023-07-25] MEDS ORDERED: FAMO40TA70 MT (10:44)
[2023-07-25 10:57] VITALS: BP 148/78; PULSE 78; RESP 18; TEMP 98.5
[2023-07-25 11:11] LABS: MUCUS URINE 1+ /lpf (< = 2+)
[2023-07-25 11:12] LABS: BACTERIA URINE 2+
== END 2023-07-25 10:58 | disposition home or self-care (01) ==
LOC: ER 08:32
DX: K21.9 Gastro-esophageal reflux disease without esophagitis (principal); Z88.5 Allergy status to narcotic agent; Z79.899 Other long term (current) drug therapy; Z98.51 Tubal ligation status; Z90.49 Acquired absence of other specified parts of digestive tract; Z98.890 Other specified postprocedural states
CPT/HCPCS: 36415; 80053; 81003; 84484; 85025; 99283

== ENCOUNTER 2023-07-29 10:12 | Emergency (ER) | payer MEDICAID ==
[~2023-07-29] VITALS: Ht 167.6 cm; Wt 63.0 kg
[2023-07-29 10:18] VITALS: BP 140/76; PULSE 112; RESP 20; TEMP 98.5; O2SAT 100
[2023-07-29] MEDS ORDERED: MAGNESIUM/ALUMINUM HYDROXIDE/SIMETHICONE 30ML UDC PO ONE (10:45)
[2023-07-29 11:17] LABS: BASOPHILS % 0.7 % (0.0-2.0); DIFFERENTIAL COMMENT 0; EOSINOPHILS % 1.6 % (0.0-5.0); HEMOGLOBIN. 12.4 g/dL (12.0-16.0); LYMPHOCYTES % 26.6 % (20.0-50.0); MEAN CORPUSCULAR HEMOGLOBIN 25.6 pg (28.0-32.0); MEAN CORPUSCULAR HGB CONC 32.7 g/dL (31.0-37.0); MEAN CORPUSCULAR VOLUME 78.4 fL (81.0-99.0); MEAN PLATELET VOLUME 7.7 fl (7.4-10.4); MONOCYTES % 9.8 % (2.0-8.0); NEUTROPHILS % 61.3 % (40.0-76.0); PLATELET 377 x1000/uL (130-400); RED BLOOD CELL COUNT 4.84 mill/uL (4.2-5.4); RED CELL DISTRIBUTION WIDTH 17.7 % (11.6-14.6); WHITE BLOOD COUNT 9.7 x1000/uL (4.5-11.0)
[2023-07-29 11:34] LABS: ALANINE AMINOTRANSFERASE 15 IU/L (10-49); ALBUMIN 4.4 g/dL (3.2-4.8); ASPARTATE AMINOTRANSFERASE 19 IU/L (<34); BILIRUBIN TOTAL 0.4 mg/dL (0.1-1.0); CALCIUM 9.7 mg/dL (8.7-10.4); CARBON DIOXIDE 27 mEq/L (21-32); CHLORIDE 106 mEq/L (98-107); CREATININE 0.6 mg/dL (0.6-1.0); GLUCOSE 101 mg/dL (70-105); POTASSIUM 4.1 mEq/L (3.5-5.1); PROTEIN TOTAL 6.7 g/dL (6.0-8.3); SODIUM 142 mEq/L (136-145); TROPONIN I HIGH SENSITIVITY 4 ng/L (3.0-34); UREA NITROGEN BLOOD 6 mg/dL (9-23)
== END 2023-07-29 12:04 | disposition home or self-care (01) ==
LOC: ER 10:24
DX: K21.9 Gastro-esophageal reflux disease without esophagitis (principal); F41.9 Anxiety disorder, unspecified; A18.4 Tuberculosis of skin and subcutaneous tissue; M19.90 Unspecified osteoarthritis, unspecified site; Z90.49 Acquired absence of other specified parts of digestive tract; Z98.51 Tubal ligation status; Z79.899 Other long term (current) drug therapy
CPT/HCPCS: 36415; 80053; 84484; 85025; 93005; 99284

== ENCOUNTER 2023-08-08 08:36 | Emergency (ER) | payer MEDICAID ==
[~2023-08-08] VITALS: Ht 157.5 cm; Wt 59.0 kg
[2023-08-08 08:53] VITALS: BP 126/68; O2SAT 99
[2023-08-08] MEDS ORDERED: MAGNESIUM/ALUMINUM HYDROXIDE/SIMETHICONE 30ML UDC PO NR (09:15)
[2023-08-08] MEDS ORDERED: FAMOTIDINE 20MG TABLET PO NR (09:15)
[2023-08-08] MEDS ORDERED: ASPIRIN 81MG TABLET PO NR (09:15)
[2023-08-08] MEDS ORDERED: ONDANSETRON 4MG ODT PO NR (09:15)
[2023-08-08 09:19] LABS: BASOPHILS % 0.8 % (0.0-2.0); DIFFERENTIAL COMMENT 0; EOSINOPHILS % 1.5 % (0.0-5.0); HEMATOCRIT. 39.3 % (36.0-48.0); HEMOGLOBIN. 12.3 g/dL (12.0-16.0); LYMPHOCYTES % 28.8 % (20.0-50.0); MEAN CORPUSCULAR HGB CONC 31.4 g/dL (31.0-37.0); MEAN CORPUSCULAR VOLUME 79.5 fL (81.0-99.0); MEAN PLATELET VOLUME 7.5 fl (7.4-10.4); MONOCYTES % 9.7 % (2.0-8.0); NEUTROPHILS % 59.2 % (40.0-76.0); PLATELET 366 x1000/uL (130-400); RED BLOOD CELL COUNT 4.93 mill/uL (4.2-5.4); RED CELL DISTRIBUTION WIDTH 17.6 % (11.6-14.6); WHITE BLOOD COUNT 8.3 x1000/uL (4.5-11.0)
[2023-08-08 09:53] LABS: ALANINE AMINOTRANSFERASE 18 IU/L (10-49); ALBUMIN 4.4 g/dL (3.2-4.8); ASPARTATE AMINOTRANSFERASE 23 IU/L (<34); BILIRUBIN TOTAL 0.6 mg/dL (0.1-1.0); CALCIUM 9.7 mg/dL (8.7-10.4); CARBON DIOXIDE 27 mEq/L (21-32); CHLORIDE 109 mEq/L (98-107); CREATININE 0.7 mg/dL (0.6-1.0); GLUCOSE 97 mg/dL (70-105); PROTEIN TOTAL 7.6 g/dL (6.0-8.3); SODIUM 143 mEq/L (136-145); TROPONIN I HIGH SENSITIVITY 4 ng/L (3.0-34); UREA NITROGEN BLOOD 7 mg/dL (9-23)
[2023-08-08] MEDS ORDERED: FAMO20TA8 MT (10:33)
[2023-08-08 10:58] VITALS: PULSE 90; RESP 12; TEMP 98.2
== END 2023-08-08 11:00 | disposition home or self-care (01) ==
LOC: ER 08:36
DX: K29.70 Gastritis, unspecified, without bleeding (principal); F41.9 Anxiety disorder, unspecified; M19.90 Unspecified osteoarthritis, unspecified site; K21.9 Gastro-esophageal reflux disease without esophagitis; Z90.49 Acquired absence of other specified parts of digestive tract; Z98.51 Tubal ligation status; Z88.5 Allergy status to narcotic agent; Z79.899 Other long term (current) drug therapy
CPT/HCPCS: 80053; 83690; 85025; 84484; 36415; 93005; 99284; Z7610; Q0162

== ENCOUNTER 2023-08-12 10:21 | Emergency (ER) | payer MEDICAID ==
[~2023-08-12] VITALS: Ht 162.6 cm; Wt 63.0 kg
[2023-08-12 10:34] VITALS: BP 120/67; PULSE 104; RESP 20; TEMP 98.6; O2SAT 100
[2023-08-12] MEDS ORDERED: MAGNESIUM/ALUMINUM HYDROXIDE/SIMETHICONE 30ML UDC PO ONE (11:15)
[2023-08-12] MEDS ORDERED: ONDANSETRON 4MG ODT PO ONE (11:15)
[2023-08-12] MEDS ORDERED: FAMOTIDINE 20MG TABLET PO ONE (11:15)
[2023-08-12] MEDS ORDERED: MAG355OR21 MT (11:59)
== END 2023-08-12 12:10 | disposition home or self-care (01) ==
LOC: ER 10:21
DX: K29.70 Gastritis, unspecified, without bleeding (principal); F41.9 Anxiety disorder, unspecified; M19.90 Unspecified osteoarthritis, unspecified site; K21.9 Gastro-esophageal reflux disease without esophagitis; Z90.49 Acquired absence of other specified parts of digestive tract; Z98.51 Tubal ligation status; Z88.5 Allergy status to narcotic agent; Z88.6 Allergy status to analgesic agent; Z79.899 Other long term (current) drug therapy
CPT/HCPCS: 99283; Q0162

== ENCOUNTER 2023-08-24 11:42 | Emergency (ER) | payer MEDICAID ==
[~2023-08-24] VITALS: Ht 160 cm; Wt 64.0 kg
[2023-08-24 11:56] VITALS: O2SAT 99
[2023-08-24 15:06] LABS: BASOPHILS % 1.5 % (0.0-2.0); DIFFERENTIAL COMMENT 0; EOSINOPHILS % 1.7 % (0.0-5.0); HEMATOCRIT. 39.1 % (36.0-48.0); HEMOGLOBIN. 12.5 g/dL (12.0-16.0); LYMPHOCYTES % 29.9 % (20.0-50.0); MEAN PLATELET VOLUME 7.6 fl (7.4-10.4); MONOCYTES % 9.6 % (2.0-8.0); NEUTROPHILS % 57.3 % (40.0-76.0); PLATELET 379 x1000/uL (130-400); RED BLOOD CELL COUNT 5.01 mill/uL (4.2-5.4); RED CELL DISTRIBUTION WIDTH 18.3 % (11.6-14.6); WHITE BLOOD COUNT 10.2 x1000/uL (4.5-11.0)
[2023-08-24 15:12] LABS: INR 0.9
[2023-08-24 15:16] LABS: ALANINE AMINOTRANSFERASE 15 IU/L (10-49); ASPARTATE AMINOTRANSFERASE 22 IU/L (<34); BILIRUBIN TOTAL 0.4 mg/dL (0.1-1.0); CALCIUM 9.2 mg/dL (8.7-10.4); CARBON DIOXIDE 30 mEq/L (21-32); CHLORIDE 106 mEq/L (98-107); CREATININE 0.6 mg/dL (0.6-1.0); GLUCOSE 80 mg/dL (70-105); POTASSIUM 4.3 mEq/L (3.5-5.1); PROTEIN TOTAL 7.3 g/dL (6.0-8.3); SODIUM 139 mEq/L (136-145); UREA NITROGEN BLOOD 9 mg/dL (9-23)
[2023-08-24] MEDS ORDERED: MAGNESIUM/ALUMINUM HYDROXIDE/SIMETHICONE 30ML UDC PO STA (16:33)
[2023-08-24] MEDS ORDERED: ONDANSETRON 4MG ODT PO STA (16:33)
[2023-08-24] MEDS ORDERED: FAMOTIDINE 20MG TABLET PO ONE (16:45)
[2023-08-24] MEDS ORDERED: FAMO40TA7 MT (17:03)
[2023-08-24 17:37] VITALS: BP 139/82; PULSE 92; RESP 18; TEMP 98.5
== END 2023-08-24 17:38 | disposition home or self-care (01) ==
LOC: ER 11:53
DX: K29.50 Unspecified chronic gastritis without bleeding (principal); K21.9 Gastro-esophageal reflux disease without esophagitis; M32.9 Systemic lupus erythematosus, unspecified; Z90.49 Acquired absence of other specified parts of digestive tract; Z88.5 Allergy status to narcotic agent; Z76.0 Encounter for issue of repeat prescription; Z79.899 Other long term (current) drug therapy; Z98.51 Tubal ligation status; Z98.890 Other specified postprocedural states
CPT/HCPCS: 99284; 80053; 83690; 85025; 85610; 36415; 93005; Q0162

== ENCOUNTER 2023-09-18 08:33 | Emergency (ER) | payer MEDICAID ==
[~2023-09-18] VITALS: Ht 160 cm; Wt 59.0 kg
[~2023-09-18 08:33] MED LIST changes: +FAMO40TA7 MT
[2023-09-18] MEDS ORDERED: MAGNESIUM/ALUMINUM HYDROXIDE/SIMETHICONE 30ML UDC PO ONE (08:45)
[2023-09-18] MEDS ORDERED: FAMOTIDINE 20MG TABLET PO ONE (08:45)
[2023-09-18] MEDS ORDERED: ONDANSETRON 4MG ODT PO ONE (08:45)
[2023-09-18 08:46] VITALS: O2SAT 100
[2023-09-18] MEDS ORDERED: MAG-55 MT (09:56)
[2023-09-18] MEDS ORDERED: FAMO40TA70 MT (09:56)
[2023-09-18 10:10] VITALS: BP 127/84; PULSE 84; RESP 18; TEMP 97.4
== END 2023-09-18 10:11 | disposition home or self-care (01) ==
LOC: ER 08:49
DX: M54.50 Low back pain, unspecified (principal); Z76.0 Encounter for issue of repeat prescription; Z79.899 Other long term (current) drug therapy; Z88.5 Allergy status to narcotic agent; Z98.890 Other specified postprocedural states; Z98.51 Tubal ligation status; Z90.49 Acquired absence of other specified parts of digestive tract
CPT/HCPCS: 99284; Q0162

== ENCOUNTER 2023-10-06 10:02 | Emergency (ER) | payer MEDICAID ==
[~2023-10-06] VITALS: Ht 170.2 cm; Wt 60.0 kg
[2023-10-06 10:17] VITALS: O2SAT 99
[2023-10-06 10:57] LABS: CLARITY URINE CLEAR (CLEAR); COLOR URINE YELLOW (YELLOW); GLUCOSE URINE NEGATIVE (NEGATIVE); KETONES URINE NEGATIVE (NEGATIVE); LEUKOCYTE ESTERASE URINE 1+ (NEGATIVE); NITRITE URINE NEGATIVE (NEGATIVE); OCCULT BLOOD URINE TRACE (NEGATIVE); PROTEIN URINE NEGATIVE (NEGATIVE); SPECIFIC GRAVITY URINE 1.022 (1.005-1.030); UROBILINOGEN URINE 0.2 E.U./dL (0.2-1.0)
[2023-10-06 10:59] LABS: BASOPHILS % 0.7 % (0.0-2.0); DIFFERENTIAL COMMENT 0; HEMATOCRIT. 39.6 % (36.0-48.0); HEMOGLOBIN. 12.7 g/dL (12.0-16.0); LYMPHOCYTES % 36.8 % (20.0-50.0); MEAN CORPUSCULAR HEMOGLOBIN 25.1 pg (28.0-32.0); MEAN CORPUSCULAR VOLUME 78.4 fL (81.0-99.0); MEAN PLATELET VOLUME 7.5 fl (7.4-10.4); MONOCYTES % 10.4 % (2.0-8.0); NEUTROPHILS % 51.1 % (40.0-76.0); PLATELET 376 x1000/uL (130-400); RED BLOOD CELL COUNT 5.05 mill/uL (4.2-5.4); RED CELL DISTRIBUTION WIDTH 17.4 % (11.6-14.6); WHITE BLOOD COUNT 9.6 x1000/uL (4.5-11.0)
[2023-10-06 11:07] LABS: BACTERIA URINE 1+; RBC URINE 0-2 /hpf (0-2); SQUAMOUS EPITHELIAL CELL URINE 1+ /lpf (RARE/1+); WBC URINE 0-2 /hpf (0-2)
[2023-10-06 11:13] LABS: ALANINE AMINOTRANSFERASE 14 IU/L (10-49); ALBUMIN 4.5 g/dL (3.2-4.8); ASPARTATE AMINOTRANSFERASE 28 IU/L (<34); BILIRUBIN TOTAL 0.5 mg/dL (0.1-1.0); CALCIUM 9.4 mg/dL (8.7-10.4); CARBON DIOXIDE 27 mEq/L (21-32); CHLORIDE 107 mEq/L (98-107); CREATININE 0.7 mg/dL (0.6-1.0); GLUCOSE 87 mg/dL (70-105); POTASSIUM 3.7 mEq/L (3.5-5.1); PROTEIN TOTAL 7.5 g/dL (6.0-8.3); SODIUM 143 mEq/L (136-145); UREA NITROGEN BLOOD 11 mg/dL (9-23)
[2023-10-06 11:42] LABS: TROPONIN I HIGH SENSITIVITY 4 ng/L (3.0-34)
[2023-10-06] MEDS: PANTOPRAZOLE SODIUM 40 MG/VIAL IV STA (11:52)
[2023-10-06] MEDS: METOCLOPRAMIDE HCL 10MG/2ML VIAL IV STA (11:52)
[2023-10-06] MEDS: MAGNESIUM/ALUMINUM HYDROXIDE/SIMETHICONE 30ML UDC PO ONE (12:46)
[2023-10-06 13:18] LABS: INR 0.9; PROTHROMBIN TIME 10.4 sec (9.6-11.0)
[2023-10-06] MEDS ORDERED: PROT40 MT (14:15)
[2023-10-06] MEDS ORDERED: METO-293 MT (14:15)
[2023-10-06] MEDS ORDERED: MAG-55 MT (14:15)
[2023-10-06 14:46] VITALS: BP 124/69; PULSE 84; RESP 18; TEMP 98
== END 2023-10-06 14:53 | disposition home or self-care (01) ==
LOC: ER 10:02
DX: K29.50 Unspecified chronic gastritis without bleeding (principal); Z88.5 Allergy status to narcotic agent; Z79.899 Other long term (current) drug therapy; Z98.890 Other specified postprocedural states; Z90.49 Acquired absence of other specified parts of digestive tract; Z98.51 Tubal ligation status
CPT/HCPCS: 80053; 81003; 83690; 85025; 85610; 84484; 36415; 93005; 96374; 96375; 99284; J2765; C9113; Z7610 ×5

== ENCOUNTER 2023-10-19 11:08 | Emergency (ER) | payer MEDICAID ==
[~2023-10-19] VITALS: Ht 160 cm; Wt 70.0 kg
[~2023-10-19 11:08] MED LIST changes: +METO-293 MT; +PROT40 MT
[2023-10-19 11:32] VITALS: O2SAT 100
[2023-10-19] MEDS: MAGNESIUM/ALUMINUM HYDROXIDE/SIMETHICONE 30ML UDC PO ONE (14:45)
[2023-10-19] MEDS: FAMOTIDINE 20MG TABLET PO ONE (15:45)
[2023-10-19] MEDS: ONDANSETRON 4MG ODT PO ONE (15:45)
[2023-10-19 16:06] VITALS: BP 110/71; PULSE 79; RESP 16; TEMP 98
[2023-10-19] MEDS ORDERED: ATOR20TA65 MT (16:14)
[2023-10-19] MEDS ORDERED: ONDA4TAB50 MT (16:14)
[2023-10-19] MEDS ORDERED: PROT40 MT (16:14)
[2023-10-19] MEDS ORDERED: CETI10CA11 MT (16:18)
== END 2023-10-19 16:31 | disposition home or self-care (01) ==
LOC: ER 11:08
DX: R05.9 Cough, unspecified (principal); Z76.0 Encounter for issue of repeat prescription; Z88.5 Allergy status to narcotic agent; Z79.899 Other long term (current) drug therapy; Z98.51 Tubal ligation status; Z90.49 Acquired absence of other specified parts of digestive tract; Z98.890 Other specified postprocedural states
CPT/HCPCS: 99284; 71045; Q0162

== ENCOUNTER 2023-11-22 10:56 | Emergency (ER) | payer MEDICAID ==
[~2023-11-22] VITALS: Ht 160 cm; Wt 68.0 kg
[~2023-11-22 10:56] MED LIST changes: +ATOR20TA65 MT; +CETI10CA11 MT
[2023-11-22 11:03] VITALS: O2SAT 100
[2023-11-22] MEDS: MAGNESIUM/ALUMINUM HYDROXIDE/SIMETHICONE 30ML UDC PO STA (11:47)
[2023-11-22] MEDS: PANTOPRAZOLE 40MG DR TABLET PO ONE (12:00)
[2023-11-22 12:24] LABS: HEMATOCRIT. 42.5 % (36.0-48.0); HEMOGLOBIN. 13.6 g/dL (12.0-16.0); MEAN CORPUSCULAR HEMOGLOBIN 25.6 pg (28.0-32.0); MEAN CORPUSCULAR HGB CONC 32.1 g/dL (31.0-37.0); MEAN CORPUSCULAR VOLUME 79.8 fL (81.0-99.0); MEAN PLATELET VOLUME 7.2 fl (7.4-10.4); PLATELET 391 x1000/uL (130-400); RED BLOOD CELL COUNT 5.32 mill/uL (4.2-5.4); WHITE BLOOD COUNT 11.9 x1000/uL (4.5-11.0)
[2023-11-22 12:25] LABS: DIFFERENTIAL COMMENT 1
[2023-11-22 12:51] LABS: ALANINE AMINOTRANSFERASE 18 IU/L (10-49); ALBUMIN 4.9 g/dL (3.2-4.8); ASPARTATE AMINOTRANSFERASE 18 IU/L (<34); BILIRUBIN TOTAL 0.4 mg/dL (0.1-1.0); CALCIUM 9.5 mg/dL (8.7-10.4); CARBON DIOXIDE 25 mEq/L (21-32); CHLORIDE 107 mEq/L (98-107); CREATININE 0.7 mg/dL (0.6-1.0); GLUCOSE 123 mg/dL (70-105); POTASSIUM 4.8 mEq/L (3.5-5.1); PROTEIN TOTAL 8.3 g/dL (6.0-8.3); SODIUM 138 mEq/L (136-145); TROPONIN I HIGH SENSITIVITY 4 ng/L (3.0-34); UREA NITROGEN BLOOD 13 mg/dL (9-23)
[2023-11-22 13:04] LABS: PLATELET ESTIMATE NORMAL; TOXIC VACUOLATION 1+
[2023-11-22 13:25] LABS: CLARITY URINE CLEAR (CLEAR); COLOR URINE YELLOW (YELLOW); GLUCOSE URINE NEGATIVE (NEGATIVE); KETONES URINE NEGATIVE (NEGATIVE); LEUKOCYTE ESTERASE URINE NEGATIVE (NEGATIVE); NITRITE URINE NEGATIVE (NEGATIVE); OCCULT BLOOD URINE TRACE (NEGATIVE); PH URINE 5.5 (4.5-8.0); PROTEIN URINE NEGATIVE (NEGATIVE); SPECIFIC GRAVITY URINE 1.009 (1.005-1.030); UROBILINOGEN URINE 0.2 E.U./dL (0.2-1.0)
[2023-11-22] MEDS: BISMUTH SUBSALICYLATE 262 MG/15 ML-120ML BOTTLE PO ONE (13:45)
[2023-11-22] MEDS ORDERED: BISM525O28 PO (13:47)
[2023-11-22 13:52] LABS: SQUAMOUS EPITHELIAL CELL URINE 1+ /lpf (RARE/1+)
[2023-11-22 13:53] LABS: BACTERIA URINE NONE SEEN; RBC URINE NONE SEEN /hpf (0-2); WBC URINE NONE SEEN /hpf (0-2)
[2023-11-22 14:33] VITALS: BP 111/68; PULSE 78; RESP 16; TEMP 98.3
== END 2023-11-22 15:46 | disposition home or self-care (01) ==
LOC: ER 11:13
DX: R10.13 Epigastric pain (principal); Z90.49 Acquired absence of other specified parts of digestive tract; Z91.041 Radiographic dye allergy status; Z88.5 Allergy status to narcotic agent; Z79.899 Other long term (current) drug therapy; Z98.51 Tubal ligation status; Z98.890 Other specified postprocedural states
CPT/HCPCS: 36415; 74176; 80053; 81003; 84484; 85025; 93005; 99284

== ENCOUNTER 2024-01-08 11:02 | Emergency (ER) | payer MEDICAID ==
[~2024-01-08] VITALS: Ht 160 cm; Wt 65.0 kg
[~2024-01-08 11:02] MED LIST changes: +BISM525O28 PO
[2024-01-08 11:24] VITALS: TEMP 98.8; O2SAT 99
[2024-01-08 11:54] LABS: HEMATOCRIT. 43.2 % (36.0-48.0); HEMOGLOBIN. 14.5 g/dL (12.0-16.0); MEAN CORPUSCULAR HEMOGLOBIN 27.2 pg (28.0-32.0); MEAN CORPUSCULAR HGB CONC 33.5 g/dL (31.0-37.0); MEAN CORPUSCULAR VOLUME 81.2 fL (81.0-99.0); MEAN PLATELET VOLUME 7.1 fl (7.4-10.4); PLATELET 390 x1000/uL (130-400); RED BLOOD CELL COUNT 5.32 mill/uL (4.2-5.4); RED CELL DISTRIBUTION WIDTH 19.4 % (11.6-14.6); WHITE BLOOD COUNT 13.1 x1000/uL (4.5-11.0)
[2024-01-08 11:55] LABS: DIFFERENTIAL COMMENT 1
[2024-01-08 12:20] LABS: CARBON DIOXIDE 25 mEq/L (21-32); CHLORIDE 106 mEq/L (98-107); POTASSIUM 4.4 mEq/L (3.5-5.1); SODIUM 137 mEq/L (136-145)
[2024-01-08 12:21] LABS: CALCIUM 10.2 mg/dL (8.7-10.4)
[2024-01-08 12:25] LABS: CREATININE 0.8 mg/dL (0.6-1.0)
[2024-01-08 12:26] LABS: GLUCOSE 94 mg/dL (70-105); UREA NITROGEN BLOOD 10 mg/dL (9-23)
[2024-01-08 12:27] LABS: ALANINE AMINOTRANSFERASE 21 IU/L (10-49); ALBUMIN 4.4 g/dL (3.2-4.8); ASPARTATE AMINOTRANSFERASE 23 IU/L (<34)
[2024-01-08 12:28] LABS: BILIRUBIN DIRECT 0.2 mg/dL (<=3.0); BILIRUBIN TOTAL 0.7 mg/dL (0.1-1.0); PROTEIN TOTAL 7.5 g/dL (6.0-8.3)
[2024-01-08] MEDS: FAMOTIDINE 20MG TABLET PO ONE (13:29)
[2024-01-08] MEDS: MAGNESIUM/ALUMINUM HYDROXIDE/SIMETHICONE 30ML UDC PO ONE (13:29)
[2024-01-08] MEDS: SUCRALFATE 1G TABLET PO STA (13:29)
[2024-01-08] MEDS: ONDANSETRON 4MG ODT PO ONE (13:29)
[2024-01-08] MEDS ORDERED: SUCRALFATE 1G TABLET PO SCH (13:30)
[2024-01-08] MEDS ORDERED: ONDA4TAB11 PO (13:52)
[2024-01-08] MEDS ORDERED: FAMO20TA8 PO (13:52)
[2024-01-08] MEDS ORDERED: MAG355OR21 MT (13:52)
[2024-01-08 13:54] LABS: CLARITY URINE CLEAR (CLEAR); COLOR URINE YELLOW (YELLOW); GLUCOSE URINE NEGATIVE (NEGATIVE); KETONES URINE NEGATIVE (NEGATIVE); LEUKOCYTE ESTERASE URINE NEGATIVE (NEGATIVE); NITRITE URINE NEGATIVE (NEGATIVE); OCCULT BLOOD URINE NEGATIVE (NEGATIVE); PH URINE 5.5 (4.5-8.0); PROTEIN URINE NEGATIVE (NEGATIVE); SPECIFIC GRAVITY URINE 1.023 (1.005-1.030)
[2024-01-08 14:07] VITALS: BP 135/88; PULSE 76; RESP 18
[2024-01-08 15:09] LABS: ANISOCYTOSIS 2+; PLATELET ESTIMATE NORMAL
== END 2024-01-08 14:09 | disposition home or self-care (01) ==
LOC: ER 11:02
DX: R10.816 Epigastric abdominal tenderness (principal); F41.9 Anxiety disorder, unspecified; K21.9 Gastro-esophageal reflux disease without esophagitis; Z98.51 Tubal ligation status; Z90.49 Acquired absence of other specified parts of digestive tract; Z79.899 Other long term (current) drug therapy; Z91.040 Latex allergy status
CPT/HCPCS: 99284; 80076; 80048; 81003; 83690; 85025; 36415; Q0162

== ENCOUNTER 2024-02-03 09:44 | Emergency (ER) | payer MEDICAID ==
[~2024-02-03] VITALS: Ht 157.5 cm; Wt 64.0 kg
[~2024-02-03 09:44] MED LIST changes: +FAMO20TA8 PO
[2024-02-03 09:47] VITALS: BP 153/83; RESP 16; TEMP 98.7; O2SAT 100
[2024-02-03 09:51] VITALS: PULSE 128
[2024-02-03 10:36] LABS: BASOPHILS % 0.7 % (0.0-2.0); EOSINOPHILS % 0.8 % (0.0-5.0); HEMATOCRIT. 40.4 % (36.0-48.0); HEMOGLOBIN. 13.4 g/dL (12.0-16.0); LYMPHOCYTES % 16.5 % (20.0-50.0); MEAN CORPUSCULAR HEMOGLOBIN 27.2 pg (28.0-32.0); MEAN CORPUSCULAR HGB CONC 33.1 g/dL (31.0-37.0); MEAN CORPUSCULAR VOLUME 82.1 fL (81.0-99.0); MEAN PLATELET VOLUME 7.2 fl (7.4-10.4); MONOCYTES % 7.6 % (2.0-8.0); NEUTROPHILS % 74.4 % (40.0-76.0); PLATELET 386 x1000/uL (130-400); RED BLOOD CELL COUNT 4.92 mill/uL (4.2-5.4); RED CELL DISTRIBUTION WIDTH 18.8 % (11.6-14.6); WHITE BLOOD COUNT 15.9 x1000/uL (4.5-11.0)
[2024-02-03 10:52] LABS: CLARITY URINE CLOUDY (CLEAR); COLOR URINE YELLOW (YELLOW); GLUCOSE URINE NEGATIVE (NEGATIVE); KETONES URINE NEGATIVE (NEGATIVE); LEUKOCYTE ESTERASE URINE 3+ (NEGATIVE); NITRITE URINE NEGATIVE (NEGATIVE); OCCULT BLOOD URINE 1+ (NEGATIVE); PH URINE 6.5 (4.5-8.0); PROTEIN URINE 1+ (NEGATIVE); SPECIFIC GRAVITY URINE 1.015 (1.005-1.030); UROBILINOGEN URINE 0.2 E.U./dL (0.2-1.0)
[2024-02-03 10:53] LABS: CHLORIDE 106 mEq/L (98-107); POTASSIUM 4.2 mEq/L (3.5-5.1); SODIUM 139 mEq/L (136-145)
[2024-02-03 10:54] LABS: CARBON DIOXIDE 27 mEq/L (21-32)
[2024-02-03 10:55] LABS: CALCIUM 9.5 mg/dL (8.7-10.4)
[2024-02-03 10:59] LABS: CREATININE 0.7 mg/dL (0.6-1.0)
[2024-02-03 11:00] LABS: GLUCOSE 104 mg/dL (70-105); UREA NITROGEN BLOOD 11 mg/dL (9-23)
[2024-02-03 11:01] LABS: ALANINE AMINOTRANSFERASE 23 IU/L (10-49); ALBUMIN 4.3 g/dL (3.2-4.8); ASPARTATE AMINOTRANSFERASE 23 IU/L (<34)
[2024-02-03 11:02] LABS: BILIRUBIN DIRECT 0.1 mg/dL (<=3.0); BILIRUBIN TOTAL 0.6 mg/dL (0.1-1.0); PROTEIN TOTAL 7.1 g/dL (6.0-8.3)
[2024-02-03 11:16] LABS: SQUAMOUS EPITHELIAL CELL URINE FEW /lpf (RARE/1+)
[2024-02-03 11:17] LABS: WBC URINE TNTC /hpf (0-2)
[2024-02-03 11:20] LABS: BACTERIA URINE 4+; RBC URINE 0-2 /hpf (0-2)
[2024-02-03] MEDS: DICYCLOMINE 10 MG/5 ML ORAL SYR PO STA (11:20)
[2024-02-03] MEDS: MAGNESIUM/ALUMINUM HYDROXIDE/SIMETHICONE 30ML UDC PO STA (11:20)
[2024-02-03] MEDS: ONDANSETRON 4MG ODT PO STA (11:31)
[2024-02-03] MEDS: FAMOTIDINE 20MG TABLET PO ONE (11:31)
[2024-02-03] MEDS ORDERED: CEFP200T13 MT (11:36)
== END 2024-02-03 14:20 | disposition home or self-care (01) ==
LOC: ER 09:44
DX: K29.60 Other gastritis without bleeding (principal); N39.0 Urinary tract infection, site not specified; F41.9 Anxiety disorder, unspecified; K21.9 Gastro-esophageal reflux disease without esophagitis; Z90.49 Acquired absence of other specified parts of digestive tract; Z98.51 Tubal ligation status; Z79.899 Other long term (current) drug therapy; Z88.6 Allergy status to analgesic agent; Z91.040 Latex allergy status; Z88.5 Allergy status to narcotic agent
CPT/HCPCS: 99284; 80076; 80048; 81003; 83690; 85025; 86850; 86900; 86901; 87086; 87186; 87077; 36415; Q0162

== ENCOUNTER 2024-03-07 09:15 | Emergency (ER) | payer MEDICAID, OTHER ==
[~2024-03-07] VITALS: Ht 162.6 cm; Wt 65.8 kg
[~2024-03-07 09:15] MED LIST changes: +CEFP200T13 MT
[2024-03-07 10:02] VITALS: O2SAT 96
[2024-03-07] MEDS: FAMOTIDINE 20MG TABLET PO ONE (10:35)
[2024-03-07] MEDS: MAGNESIUM/ALUMINUM HYDROXIDE/SIMETHICONE 30ML UDC PO ONE (10:35)
[2024-03-07] MEDS ORDERED: FAMO-135 MT (11:17)
[2024-03-07] MEDS ORDERED: MAG-55 MT (11:17)
[2024-03-07] MEDS: ONDANSETRON 4MG ODT PO ONE (11:31)
[2024-03-07 11:35] VITALS: BP 134/64; PULSE 91; RESP 16; TEMP 98.9
== END 2024-03-07 11:34 | disposition home or self-care (01) ==
LOC: ER 09:15
DX: I10 Essential (primary) hypertension (principal); F41.9 Anxiety disorder, unspecified; M32.9 Systemic lupus erythematosus, unspecified; Z76.0 Encounter for issue of repeat prescription; Z88.5 Allergy status to narcotic agent; Z88.1 Allergy status to other antibiotic agents; Z79.899 Other long term (current) drug therapy; Z98.51 Tubal ligation status; Z90.49 Acquired absence of other specified parts of digestive tract
CPT/HCPCS: 99284; Q0162; 99283

== ENCOUNTER 2024-03-09 09:33 | Emergency (ER) | payer OTHER ==
[~2024-03-09] VITALS: Ht 167.6 cm; Wt 76.0 kg
[2024-03-09 09:36] VITALS: BP 149/66; TEMP 98.6; O2SAT 100
[2024-03-09 09:37] VITALS: PULSE 100; RESP 16
[2024-03-09] MEDS: IBUPROFEN 600MG TABLET PO ONE (10:15)
[2024-03-09] MEDS: MAGNESIUM/ALUMINUM HYDROXIDE/SIMETHICONE 30ML UDC PO ONE (10:17)
[2024-03-09] MEDS ORDERED: LIDO700A30 TP (10:51)
[2024-03-09] MEDS: FAMOTIDINE 20MG TABLET PO ONE (11:19)
== END 2024-03-09 11:07 | disposition home or self-care (01) ==
LOC: ER 09:33
DX: S20.212A Contusion of left front wall of thorax, initial encounter (principal); F41.9 Anxiety disorder, unspecified; K21.9 Gastro-esophageal reflux disease without esophagitis; Z98.51 Tubal ligation status; Z90.49 Acquired absence of other specified parts of digestive tract; Z88.6 Allergy status to analgesic agent; Z91.040 Latex allergy status; Z88.5 Allergy status to narcotic agent; W18.39XA Other fall on same level, initial encounter; Y93.89 Activity, other specified; Y92.89 Other specified places as the place of occurrence of the external cause; Y99.8 Other external cause status
CPT/HCPCS: 71101; 99284

== ENCOUNTER 2024-03-11 09:49 | Emergency (ER) | payer OTHER ==
[~2024-03-11] VITALS: Ht 160 cm; Wt 61.0 kg
[~2024-03-11 09:49] MED LIST changes: +LIDO700A30 TP
[2024-03-11 09:59] VITALS: BP 133/107; PULSE 115; RESP 16; TEMP 98.4; O2SAT 98
[2024-03-11] MEDS: FAMOTIDINE 20MG TABLET PO ONE (11:54)
[2024-03-11] MEDS: DIPHENHYDRAMINE 25MG CAPSULE PO ONE (11:54)
[2024-03-11] MEDS: MAGNESIUM/ALUMINUM HYDROXIDE/SIMETHICONE 30ML UDC PO ONE (11:54)
== END 2024-03-11 12:58 | disposition left against medical advice (07) ==
LOC: ER 10:02
DX: R21 Rash and other nonspecific skin eruption (principal); F41.9 Anxiety disorder, unspecified; Z90.49 Acquired absence of other specified parts of digestive tract; Z88.1 Allergy status to other antibiotic agents; Z88.5 Allergy status to narcotic agent; Z79.899 Other long term (current) drug therapy; Z98.890 Other specified postprocedural states; Z98.51 Tubal ligation status
CPT/HCPCS: 99284; Q0163

== ENCOUNTER 2024-04-12 10:49 | Emergency (ER) | payer OTHER ==
[~2024-04-12] VITALS: Ht 142.2 cm; Wt 68.0 kg
[2024-04-12 11:18] VITALS: O2SAT 99
[2024-04-12] MEDS: MAGNESIUM/ALUMINUM HYDROXIDE/SIMETHICONE 30ML UDC PO STA (12:34)
[2024-04-12 13:02] LABS: HEMATOCRIT. 42.1 % (36.0-48.0); HEMOGLOBIN. 13.9 g/dL (12.0-16.0); MEAN CORPUSCULAR HEMOGLOBIN 28.7 pg (28.0-32.0); MEAN CORPUSCULAR HGB CONC 33.1 g/dL (31.0-37.0); MEAN CORPUSCULAR VOLUME 86.6 fL (81.0-99.0); MEAN PLATELET VOLUME 7.1 fl (7.4-10.4); PLATELET 368 x1000/uL (130-400); RED BLOOD CELL COUNT 4.86 mill/uL (4.2-5.4); RED CELL DISTRIBUTION WIDTH 16.6 % (11.6-14.6); WHITE BLOOD COUNT 11.9 x1000/uL (4.5-11.0)
[2024-04-12 13:10] LABS: CHLORIDE 107 mEq/L (98-107); POTASSIUM 4.3 mEq/L (3.5-5.1); SODIUM 139 mEq/L (136-145)
[2024-04-12 13:11] LABS: CALCIUM 9.7 mg/dL (8.7-10.4); CARBON DIOXIDE 27 mEq/L (21-32)
[2024-04-12 13:14] LABS: DIFFERENTIAL COMMENT 1
[2024-04-12 13:16] LABS: CREATININE 0.7 mg/dL (0.6-1.0); GLUCOSE 100 mg/dL (70-105); UREA NITROGEN BLOOD 7 mg/dL (9-23)
[2024-04-12 13:18] LABS: ALANINE AMINOTRANSFERASE 25 IU/L (10-49); ALBUMIN 4.7 g/dL (3.2-4.8); ASPARTATE AMINOTRANSFERASE 25 IU/L (<34); BILIRUBIN TOTAL 0.4 mg/dL (0.1-1.0); PROTEIN TOTAL 7.5 g/dL (6.0-8.3)
[2024-04-12 13:24] LABS: BILIRUBIN DIRECT < 0.1 mg/dL (<=3.0)
[2024-04-12 13:58] LABS: PLATELET ESTIMATE NORMAL
[2024-04-12] MEDS: ONDANSETRON 4MG ODT PO STA (14:28)
[2024-04-12] MEDS: ACETAMINOPHEN 325MG TABLET PO STA (14:28)
[2024-04-12 14:47] VITALS: BP 136/89; PULSE 91; RESP 18; TEMP 98.7
== END 2024-04-12 14:47 | disposition home or self-care (01) ==
LOC: ER 11:07
DX: R10.9 Unspecified abdominal pain (principal); R11.2 Nausea with vomiting, unspecified; F41.9 Anxiety disorder, unspecified; K21.9 Gastro-esophageal reflux disease without esophagitis; Z98.51 Tubal ligation status; Z90.49 Acquired absence of other specified parts of digestive tract; Z79.899 Other long term (current) drug therapy; Z88.6 Allergy status to analgesic agent; Z88.5 Allergy status to narcotic agent; Z91.041 Radiographic dye allergy status
CPT/HCPCS: 99284; 80076; 80048; 83690; 85025; 36415; Q0162

== ENCOUNTER 2024-05-20 09:44 | Emergency (ER) | payer MEDICAID ==
[~2024-05-20] VITALS: Ht 162.6 cm; Wt 70.0 kg
[~2024-05-20 09:44] MED LIST changes: +ONDA-239 PO; -ONDA4TAB11 PO
[2024-05-20 09:47] VITALS: BP 161/86; RESP 18; TEMP 98.3; O2SAT 100
[2024-05-20 09:51] VITALS: PULSE 116; O2SAT 98
[2024-05-20] MEDS ORDERED: ACETAMINOPHEN 325MG TABLET PO STA (11:12)
[2024-05-20] MEDS ORDERED: MAGNESIUM/ALUMINUM HYDROXIDE/SIMETHICONE 30ML UDC PO ONE (11:15)
[2024-05-20] MEDS ORDERED: FAMOTIDINE 20MG TABLET PO ONE (11:15)
[2024-05-20] MEDS ORDERED: ONDANSETRON HCL 4MG/2ML INJ IM ONE (11:15)
[2024-05-20 11:25] LABS: HEMATOCRIT. 42.7 % (36.0-48.0); MEAN CORPUSCULAR HEMOGLOBIN 28.2 pg (28.0-32.0); MEAN CORPUSCULAR HGB CONC 32.8 g/dL (31.0-37.0); MEAN PLATELET VOLUME 7.1 fl (7.4-10.4); PLATELET 358 x1000/uL (130-400); RED BLOOD CELL COUNT 4.96 mill/uL (4.2-5.4); RED CELL DISTRIBUTION WIDTH 16.2 % (11.6-14.6); WHITE BLOOD COUNT 11.7 x1000/uL (4.5-11.0)
[2024-05-20 11:31] LABS: DIFFERENTIAL COMMENT 1
[2024-05-20 11:39] LABS: CHLORIDE 106 mEq/L (98-107); POTASSIUM 3.6 mEq/L (3.5-5.1); SODIUM 140 mEq/L (136-145)
[2024-05-20 11:40] LABS: CALCIUM 9.2 mg/dL (8.7-10.4); CARBON DIOXIDE 29 mEq/L (21-32)
[2024-05-20 11:45] LABS: CREATININE 0.7 mg/dL (0.6-1.0); GLUCOSE 92 mg/dL (70-105); UREA NITROGEN BLOOD 10 mg/dL (9-23)
[2024-05-20 11:47] LABS: ALANINE AMINOTRANSFERASE 25 IU/L (10-49); ALBUMIN 4.4 g/dL (3.2-4.8); ASPARTATE AMINOTRANSFERASE 20 IU/L (<34); BILIRUBIN TOTAL 0.4 mg/dL (0.1-1.0); PROTEIN TOTAL 7.3 g/dL (6.0-8.3)
[2024-05-20 12:11] LABS: TROPONIN I HIGH SENSITIVITY < 4 ng/L (3.0-34)
[2024-05-20 12:15] LABS: CLARITY URINE CLEAR (CLEAR); COLOR URINE YELLOW (YELLOW); GLUCOSE URINE NEGATIVE (NEGATIVE); KETONES URINE NEGATIVE (NEGATIVE); LEUKOCYTE ESTERASE URINE 2+ (NEGATIVE); NITRITE URINE NEGATIVE (NEGATIVE); OCCULT BLOOD URINE NEGATIVE (NEGATIVE); PROTEIN URINE NEGATIVE (NEGATIVE); SPECIFIC GRAVITY URINE 1.013 (1.005-1.030); UROBILINOGEN URINE 0.2 E.U./dL (0.2-1.0)
[2024-05-20 12:21] LABS: BILIRUBIN DIRECT < 0.1 mg/dL (<=3.0)
[2024-05-20 12:36] LABS: BACTERIA URINE 1+; RBC URINE 0-2 /hpf (0-2); SQUAMOUS EPITHELIAL CELL URINE 2+ /lpf (RARE/1+); WBC URINE TNTC /hpf (0-2); YEAST URINE NONE SEEN
[2024-05-20] MEDS: MAGNESIUM/ALUMINUM HYDROXIDE/SIMETHICONE 30ML UDC PO NR (14:20)
[2024-05-20] MEDS: ACETAMINOPHEN 325MG TABLET PO NR (14:20)
[2024-05-20] MEDS: FAMOTIDINE 20MG TABLET PO NR (14:20)
[2024-05-20] MEDS: ONDANSETRON HCL 4MG/2ML INJ IM NR (14:21)
[2024-05-20] MEDS ORDERED: MAG355OR21 MT (14:54)
[2024-05-20] MEDS ORDERED: FAMO20TA8 PO (14:54)
[2024-05-20] MEDS ORDERED: ACET-2708 PO (14:54)
[2024-05-20 15:31] LABS: ANISOCYTOSIS 1+; PLATELET ESTIMATE NORMAL
[2024-05-20] MEDS ORDERED: SULF1TAB48 MT (15:46)
== END 2024-05-20 16:02 | disposition home or self-care (01) ==
LOC: ER 09:49
DX: K29.00 Acute gastritis without bleeding (principal); N39.0 Urinary tract infection, site not specified; F41.9 Anxiety disorder, unspecified; E78.00 Pure hypercholesterolemia, unspecified; Z88.5 Allergy status to narcotic agent; Z88.8 Allergy status to other drugs, medicaments and biological substances
CPT/HCPCS: 80076; 80048; 81003; 83690; 85025; 87086; 87186; 84484; 87077; 36415; 93005; 96372; 99284; J2405; Z7610

== ENCOUNTER 2024-07-18 08:29 | Emergency (ER) | payer MEDICAID ==
[~2024-07-18] VITALS: Ht 162.6 cm; Wt 62.0 kg
[~2024-07-18 08:29] MED LIST changes: -CEFP200T13 MT; +DILT30TA37 MT; -FAMO-135 PO; -FAMO20TA8 MT; -FAMO40TA7 MT; -HYDR-3735 MT; -MAG-55 MT; -OMEP20CA14 MT; -OMEP20CA14 PO; -OMEP20TA23 PO; -OMEP40CA20 MT; -ONDA-239 PO; -ONDA4TAB5 MT; -SIME125C MT; +SULF1TAB48 MT
[2024-07-18 08:42] VITALS: O2SAT 99
[2024-07-18 09:42] LABS: HEMATOCRIT. 44.3 % (36.0-48.0); HEMOGLOBIN. 14.1 g/dL (12.0-16.0); MEAN CORPUSCULAR HEMOGLOBIN 27.4 pg (28.0-32.0); MEAN CORPUSCULAR HGB CONC 31.9 g/dL (31.0-37.0); MEAN CORPUSCULAR VOLUME 85.9 fL (81.0-99.0); MEAN PLATELET VOLUME 7.2 fl (7.4-10.4); PLATELET 356 x1000/uL (130-400); RED BLOOD CELL COUNT 5.16 mill/uL (4.2-5.4); RED CELL DISTRIBUTION WIDTH 16.1 % (11.6-14.6); WHITE BLOOD COUNT 12.5 x1000/uL (4.5-11.0)
[2024-07-18 09:52] LABS: DIFFERENTIAL COMMENT 1
[2024-07-18 09:53] LABS: CHLORIDE 107 mEq/L (98-107); POTASSIUM 3.9 mEq/L (3.5-5.1); SODIUM 142 mEq/L (136-145)
[2024-07-18 09:54] LABS: CALCIUM 9.8 mg/dL (8.7-10.4); CARBON DIOXIDE 27 mEq/L (21-32)
[2024-07-18 09:59] LABS: CREATININE 0.7 mg/dL (0.6-1.0); GLUCOSE 101 mg/dL (70-105); UREA NITROGEN BLOOD 9 mg/dL (9-23)
[2024-07-18] MEDS: ACETAMINOPHEN 325MG TABLET PO ONE (09:59)
[2024-07-18] MEDS: ONDANSETRON 4MG ODT PO STA (10:00)
[2024-07-18] MEDS: MAGNESIUM/ALUMINUM HYDROXIDE/SIMETHICONE 30ML UDC PO STA (10:00)
[2024-07-18 10:12] LABS: INR 0.9; PROTHROMBIN TIME 10.3 sec (9.6-11.0)
[2024-07-18 10:51] LABS: TROPONIN I HIGH SENSITIVITY < 4 ng/L (3.0-34)
[2024-07-18] MEDS ORDERED: MAG355OR21 MT (12:01)
[2024-07-18 12:17] VITALS: BP 147/86; PULSE 90; RESP 16; TEMP 36.83628; O2SAT 99
[2024-07-18 17:13] LABS: ANISOCYTOSIS 1+; PLATELET ESTIMATE NORMAL
== END 2024-07-18 12:20 | disposition home or self-care (01) ==
LOC: ER 08:29
DX: R10.13 Epigastric pain (principal); E78.00 Pure hypercholesterolemia, unspecified; Z88.5 Allergy status to narcotic agent; Z98.51 Tubal ligation status; Z79.899 Other long term (current) drug therapy; Z90.49 Acquired absence of other specified parts of digestive tract
CPT/HCPCS: 99285; 74176; 71045; 80048; 83690; 85025; 85610; 84484; 36415; 93005; Q0162

== ENCOUNTER 2024-09-12 10:34 | Emergency (ER) | payer MEDICAID, OTHER ==
[~2024-09-12] VITALS: Ht 165.1 cm; Wt 77.1 kg
[2024-09-12 10:51] VITALS: BP 161/77; PULSE 125; RESP 18; TEMP 98.2; O2SAT 99
[2024-09-12] MEDS ORDERED: HYDR28OI2 TP (13:13)
== END 2024-09-12 14:06 | disposition home or self-care (01) ==
LOC: ER 10:34
DX: R21 Rash and other nonspecific skin eruption (principal); F41.9 Anxiety disorder, unspecified; E78.00 Pure hypercholesterolemia, unspecified; Z88.5 Allergy status to narcotic agent; Z79.899 Other long term (current) drug therapy; Z98.51 Tubal ligation status; Z90.49 Acquired absence of other specified parts of digestive tract; Z98.890 Other specified postprocedural states
CPT/HCPCS: 99282

== ENCOUNTER 2024-09-25 07:58 | Emergency (ER) | payer OTHER ==
[~2024-09-25] VITALS: Ht 160 cm; Wt 73.0 kg
[~2024-09-25 07:58] MED LIST changes: +HYDR28OI2 TP
[2024-09-25 08:01] VITALS: O2SAT 99
[2024-09-25 08:15] VITALS: BP 131/75; PULSE 67; RESP 18; TEMP 36.9; O2SAT 99
[2024-09-25] MEDS: MAGNESIUM/ALUMINUM HYDROXIDE/SIMETHICONE 30ML UDC PO STA (08:53)
[2024-09-25] MEDS: FAMOTIDINE 20MG TABLET PO ONE (08:53)
[2024-09-25 08:59] LABS: HEMATOCRIT. 44.3 % (36.0-48.0); HEMOGLOBIN. 14.4 g/dL (12.0-16.0); MEAN CORPUSCULAR HEMOGLOBIN 28.4 pg (28.0-32.0); MEAN CORPUSCULAR HGB CONC 32.4 g/dL (31.0-37.0); MEAN CORPUSCULAR VOLUME 87.6 fL (81.0-99.0); MEAN PLATELET VOLUME 7.2 fl (7.4-10.4); PLATELET 385 x1000/uL (130-400); RED BLOOD CELL COUNT 5.06 mill/uL (4.2-5.4); RED CELL DISTRIBUTION WIDTH 16.6 % (11.6-14.6); WHITE BLOOD COUNT 12.3 x1000/uL (4.5-11.0)
[2024-09-25] MEDS: VISCOUS LIDOCAINE 2% 15 ML UDC MM SCH (09:01)
[2024-09-25 09:03] LABS: DIFFERENTIAL COMMENT 1
[2024-09-25 09:08] LABS: CHLORIDE 109 mEq/L (98-107); POTASSIUM 4.1 mEq/L (3.5-5.1); SODIUM 140 mEq/L (136-145)
[2024-09-25 09:09] LABS: CALCIUM 9.6 mg/dL (8.7-10.4); CARBON DIOXIDE 21 mEq/L (21-32)
[2024-09-25 09:14] LABS: CREATININE 0.8 mg/dL (0.6-1.0); GLUCOSE 97 mg/dL (70-105); UREA NITROGEN BLOOD 10 mg/dL (9-23)
[2024-09-25 09:16] LABS: ALANINE AMINOTRANSFERASE 19 IU/L (10-49); ALBUMIN 4.2 g/dL (3.2-4.8); ASPARTATE AMINOTRANSFERASE 19 IU/L (<34)
[2024-09-25 09:17] LABS: BILIRUBIN TOTAL 0.4 mg/dL (0.1-1.0); PROTEIN TOTAL 7.4 g/dL (6.0-8.3)
[2024-09-25 09:24] LABS: BILIRUBIN DIRECT < 0.1 mg/dL (<=3.0); TROPONIN I HIGH SENSITIVITY < 4 ng/L (3.0-34)
[2024-09-25 09:24] LABS: CLARITY URINE CLEAR (CLEAR); COLOR URINE YELLOW (YELLOW); GLUCOSE URINE NEGATIVE (NEGATIVE); KETONES URINE NEGATIVE (NEGATIVE); LEUKOCYTE ESTERASE URINE TRACE (NEGATIVE); NITRITE URINE NEGATIVE (NEGATIVE); OCCULT BLOOD URINE TRACE (NEGATIVE); PROTEIN URINE NEGATIVE (NEGATIVE); SPECIFIC GRAVITY URINE 1.016 (1.005-1.030); UROBILINOGEN URINE 0.2 E.U./dL (0.2-1.0)
[2024-09-25 10:08] LABS: BACTERIA URINE FEW; SQUAMOUS EPITHELIAL CELL URINE 1+ /lpf (RARE/1+); YEAST URINE NONE SEEN
[2024-09-25] MEDS: ACETAMINOPHEN 325MG TABLET PO ONE (11:02)
[2024-09-25] MEDS: ONDANSETRON 4MG ODT PO ONE (11:02)
[2024-09-25] MEDS ORDERED: NITR-87 MT (11:51)
[2024-09-25 11:58] LABS: PLATELET ESTIMATE NORMAL
== END 2024-09-25 13:16 | disposition home or self-care (01) ==
LOC: ER 07:58
DX: R10.13 Epigastric pain (principal); F41.9 Anxiety disorder, unspecified; E78.00 Pure hypercholesterolemia, unspecified; Z88.5 Allergy status to narcotic agent; Z79.899 Other long term (current) drug therapy; Z98.51 Tubal ligation status; Z90.49 Acquired absence of other specified parts of digestive tract; Z98.890 Other specified postprocedural states
CPT/HCPCS: 99284; 80076; 80048; 81003; 83690; 85025; 84484; 36415; 93005; Q0162

== ENCOUNTER 2024-10-20 09:43 | Emergency (ER) | payer MEDICAID, OTHER ==
[~2024-10-20] VITALS: Ht 162.6 cm; Wt 64.0 kg
[~2024-10-20 09:43] MED LIST changes: +NITR-87 MT
[2024-10-20 09:51] VITALS: TEMP 36.7; O2SAT 100
[2024-10-20 10:11] LABS: BASOPHILS % 0.9 % (0.0-2.0); HEMATOCRIT. 43.9 % (36.0-48.0); HEMOGLOBIN. 14.6 g/dL (12.0-16.0); LYMPHOCYTES % 22.6 % (20.0-50.0); MEAN CORPUSCULAR HEMOGLOBIN 28.6 pg (28.0-32.0); MEAN CORPUSCULAR HGB CONC 33.3 g/dL (31.0-37.0); MEAN CORPUSCULAR VOLUME 86.1 fL (81.0-99.0); MEAN PLATELET VOLUME 7.3 fl (7.4-10.4); MONOCYTES % 9.4 % (2.0-8.0); NEUTROPHILS % 65.1 % (40.0-76.0); PLATELET 349 x1000/uL (130-400); RED CELL DISTRIBUTION WIDTH 16.4 % (11.6-14.6); WHITE BLOOD COUNT 10.4 x1000/uL (4.5-11.0)
[2024-10-20 10:17] LABS: CALCIUM 9.8 mg/dL (8.7-10.4); CARBON DIOXIDE 28 mEq/L (21-32); CHLORIDE 107 mEq/L (98-107); POTASSIUM 4.3 mEq/L (3.5-5.1); SODIUM 141 mEq/L (136-145)
[2024-10-20 10:22] LABS: CREATININE 0.8 mg/dL (0.6-1.0); GLUCOSE 97 mg/dL (70-105)
[2024-10-20 10:23] LABS: UREA NITROGEN BLOOD 12 mg/dL (9-23)
[2024-10-20 11:07] LABS: ALANINE AMINOTRANSFERASE 20 IU/L (10-49); ALBUMIN 4.3 g/dL (3.2-4.8); ASPARTATE AMINOTRANSFERASE 24 IU/L (<34); BILIRUBIN DIRECT 0.1 mg/dL (<=3.0); BILIRUBIN TOTAL 0.6 mg/dL (0.1-1.0); PROTEIN TOTAL 7.2 g/dL (6.0-8.3)
[2024-10-20 11:26] VITALS: TEMP 98.7
[2024-10-20] MEDS: ACETAMINOPHEN 325MG TABLET PO ONE (11:26)
[2024-10-20] MEDS: FAMOTIDINE 20MG TABLET PO ONE (11:26)
[2024-10-20] MEDS: MAGNESIUM/ALUMINUM HYDROXIDE/SIMETHICONE 30ML UDC PO ONE (11:26)
[2024-10-20] MEDS: SUCRALFATE 1G TABLET PO SCH ×2 (13:06)
[2024-10-20] MEDS ORDERED: SUCR1TAB30 MT (14:06)
[2024-10-20] MEDS ORDERED: MAG355OR21 MT (14:06)
[2024-10-20 14:30] VITALS: BP 146/72; PULSE 87; RESP 17; O2SAT 99
== END 2024-10-20 14:31 | disposition home or self-care (01) ==
LOC: ER 09:43
DX: R10.13 Epigastric pain (principal); E78.00 Pure hypercholesterolemia, unspecified; F41.9 Anxiety disorder, unspecified; K21.9 Gastro-esophageal reflux disease without esophagitis; M19.90 Unspecified osteoarthritis, unspecified site; Z79.624 Long term (current) use of inhibitors of nucleotide synthesis; Z79.631 Long term (current) use of antimetabolite agent; Z79.899 Other long term (current) drug therapy; Z87.19 Personal history of other diseases of the digestive system; Z88.5 Allergy status to narcotic agent; Z90.49 Acquired absence of other specified parts of digestive tract; Z98.51 Tubal ligation status
CPT/HCPCS: 36415; 80048; 80076; 85025; 99284

== ENCOUNTER 2024-12-02 09:40 | Emergency (ER) | payer OTHER ==
[~2024-12-02] VITALS: Ht 160 cm; Wt 75.0 kg
[~2024-12-02 09:40] MED LIST changes: -NITR-87 MT; +SUCR1TAB30 MT
[2024-12-02 09:43] VITALS: O2SAT 98
[2024-12-02 09:55] VITALS: BP 137/71; PULSE 101; RESP 16; TEMP 36.8; O2SAT 98
[2024-12-02 10:44] LABS: CLARITY URINE CLEAR (CLEAR); COLOR URINE YELLOW (YELLOW); GLUCOSE URINE NEGATIVE (NEGATIVE); KETONES URINE NEGATIVE (NEGATIVE); LEUKOCYTE ESTERASE URINE NEGATIVE (NEGATIVE); NITRITE URINE POSITIVE (NEGATIVE); OCCULT BLOOD URINE NEGATIVE (NEGATIVE); PROTEIN URINE NEGATIVE (NEGATIVE); SPECIFIC GRAVITY URINE 1.012 (1.005-1.030); UROBILINOGEN URINE 0.2 E.U./dL (0.2-1.0)
[2024-12-02] MEDS: MAGNESIUM/ALUMINUM HYDROXIDE/SIMETHICONE 30ML UDC PO ONE (10:51)
[2024-12-02 10:53] LABS: HEMATOCRIT. 41.3 % (36.0-48.0); HEMOGLOBIN. 13.5 g/dL (12.0-16.0); MEAN CORPUSCULAR HEMOGLOBIN 28.3 pg (28.0-32.0); MEAN CORPUSCULAR HGB CONC 32.7 g/dL (31.0-37.0); MEAN CORPUSCULAR VOLUME 86.7 fL (81.0-99.0); MEAN PLATELET VOLUME 7.5 fl (7.4-10.4); PLATELET 349 x1000/uL (130-400); RED BLOOD CELL COUNT 4.76 mill/uL (4.2-5.4); RED CELL DISTRIBUTION WIDTH 15.8 % (11.6-14.6); WHITE BLOOD COUNT 11.7 x1000/uL (4.5-11.0)
[2024-12-02 10:54] LABS: DIFFERENTIAL COMMENT 1
[2024-12-02 11:03] LABS: CHLORIDE 106 mEq/L (98-107); POTASSIUM 4.1 mEq/L (3.5-5.1); SODIUM 142 mEq/L (136-145)
[2024-12-02 11:04] LABS: CALCIUM 9.8 mg/dL (8.7-10.4); CARBON DIOXIDE 27 mEq/L (21-32)
[2024-12-02 11:09] LABS: CREATININE 0.8 mg/dL (0.6-1.0); GLUCOSE 92 mg/dL (70-105)
[2024-12-02 11:10] LABS: UREA NITROGEN BLOOD 9 mg/dL (9-23)
[2024-12-02 11:11] LABS: ALANINE AMINOTRANSFERASE 20 IU/L (10-49); ALBUMIN 4.2 g/dL (3.2-4.8); ASPARTATE AMINOTRANSFERASE 22 IU/L (<34); BILIRUBIN DIRECT 0.2 mg/dL (<=3.0)
[2024-12-02 11:12] LABS: BILIRUBIN TOTAL 0.7 mg/dL (0.1-1.0); PROTEIN TOTAL 7.2 g/dL (6.0-8.3); TROPONIN I HIGH SENSITIVITY < 4 ng/L (3.0-34)
[2024-12-02 11:13] LABS: SQUAMOUS EPITHELIAL CELL URINE 1+ /lpf (RARE/1+)
[2024-12-02 11:14] LABS: BACTERIA URINE 4+; RBC URINE 0-2 /hpf (0-2); WBC URINE 0-2 /hpf (0-2)
[2024-12-02] MEDS ORDERED: CEPH500C2 MT (11:19)
[2024-12-02] MEDS ORDERED: OMEP40CA20 MT (11:19)
[2024-12-02] MEDS: ONDANSETRON 4MG ODT PO ONE (11:51)
[2024-12-02 13:10] LABS: PLATELET ESTIMATE NORMAL
== END 2024-12-02 11:52 | disposition home or self-care (01) ==
LOC: ER 09:40
DX: R10.13 Epigastric pain (principal); E78.00 Pure hypercholesterolemia, unspecified; F41.9 Anxiety disorder, unspecified; M19.90 Unspecified osteoarthritis, unspecified site; Z79.624 Long term (current) use of inhibitors of nucleotide synthesis; Z79.631 Long term (current) use of antimetabolite agent; Z79.899 Other long term (current) drug therapy; Z87.11 Personal history of peptic ulcer disease; Z87.19 Personal history of other diseases of the digestive system; Z90.49 Acquired absence of other specified parts of digestive tract; Z98.51 Tubal ligation status; Z88.5 Allergy status to narcotic agent
CPT/HCPCS: 99285; 71045; 80076; 80048; 81003; 83690; 85025; 84484; 36415; 93005; Q0162

== ENCOUNTER 2024-12-26 08:12 | Emergency (ER) | payer MEDICAID, OTHER ==
[~2024-12-26] VITALS: Ht 162.6 cm; Wt 73.9 kg
[~2024-12-26 08:12] MED LIST changes: +CEPH500C2 MT; +OMEP40CA20 MT
[2024-12-26 08:15] VITALS: O2SAT 97
[2024-12-26] MEDS: MAGNESIUM/ALUMINUM HYDROXIDE/SIMETHICONE 30ML UDC PO ONE (08:46)
[2024-12-26] MEDS: FAMOTIDINE 20MG TABLET PO ONE (08:46)
[2024-12-26] MEDS: ONDANSETRON 4MG ODT PO ONE (08:46)
[2024-12-26] MEDS: ACETAMINOPHEN 325MG TABLET PO ONE (08:46)
[2024-12-26 08:47] LABS: HEMATOCRIT. 43.6 % (36.0-48.0); HEMOGLOBIN. 14.8 g/dL (12.0-16.0); MEAN CORPUSCULAR HEMOGLOBIN 29.4 pg (28.0-32.0); MEAN CORPUSCULAR VOLUME 86.4 fL (81.0-99.0); MEAN PLATELET VOLUME 7.1 fl (7.4-10.4); PLATELET 380 x1000/uL (130-400); RED BLOOD CELL COUNT 5.04 mill/uL (4.2-5.4); RED CELL DISTRIBUTION WIDTH 15.6 % (11.6-14.6); WHITE BLOOD COUNT 10.9 x1000/uL (4.5-11.0)
[2024-12-26 08:51] LABS: DIFFERENTIAL COMMENT 1
[2024-12-26 08:54] LABS: CARBON DIOXIDE 28 mEq/L (21-32); CHLORIDE 106 mEq/L (98-107); POTASSIUM 4.2 mEq/L (3.5-5.1); SODIUM 142 mEq/L (136-145)
[2024-12-26 08:55] LABS: CALCIUM 9.7 mg/dL (8.7-10.4)
[2024-12-26 08:59] LABS: CREATININE 0.7 mg/dL (0.6-1.0)
[2024-12-26 09:00] LABS: GLUCOSE 103 mg/dL (70-105); UREA NITROGEN BLOOD 8 mg/dL (9-23)
[2024-12-26 09:01] LABS: ALANINE AMINOTRANSFERASE 22 IU/L (10-49); ALBUMIN 4.3 g/dL (3.2-4.8); ASPARTATE AMINOTRANSFERASE 21 IU/L (<34)
[2024-12-26 09:02] LABS: BILIRUBIN DIRECT < 0.1 mg/dL (<=3.0); BILIRUBIN TOTAL 0.4 mg/dL (0.1-1.0); PROTEIN TOTAL 7.5 g/dL (6.0-8.3)
[2024-12-26 09:07] LABS: TROPONIN I HIGH SENSITIVITY < 4 ng/L (3.0-34)
[2024-12-26 09:37] LABS: CLARITY URINE CLOUDY (CLEAR); COLOR URINE YELLOW (YELLOW); GLUCOSE URINE NEGATIVE (NEGATIVE); KETONES URINE NEGATIVE (NEGATIVE); LEUKOCYTE ESTERASE URINE NEGATIVE (NEGATIVE); NITRITE URINE NEGATIVE (NEGATIVE); OCCULT BLOOD URINE NEGATIVE (NEGATIVE); PH URINE 7.5 (4.5-8.0); PROTEIN URINE NEGATIVE (NEGATIVE); SPECIFIC GRAVITY URINE 1.016 (1.005-1.030); UROBILINOGEN URINE 0.2 E.U./dL (0.2-1.0)
[2024-12-26 09:50] LABS: PLATELET ESTIMATE NORMAL
[2024-12-26 09:54] LABS: MUCUS URINE 1+ /lpf (< = 2+); SQUAMOUS EPITHELIAL CELL URINE 2+ /lpf (RARE/1+)
[2024-12-26 09:55] LABS: BACTERIA URINE 3+; RBC URINE 0-2 /hpf (0-2); WBC URINE 0-2 /hpf (0-2)
[2024-12-26] MEDS ORDERED: SUCRALFATE 1G TABLET PO SCH (10:00)
[2024-12-26] MEDS ORDERED: FAMO-134 MT (10:34)
[2024-12-26 10:45] VITALS: BP 165/85; PULSE 75; RESP 18; TEMP 36.9; O2SAT 97
== END 2024-12-26 10:46 | disposition home or self-care (01) ==
LOC: ER 08:12
DX: R10.13 Epigastric pain (principal); F41.9 Anxiety disorder, unspecified; E78.00 Pure hypercholesterolemia, unspecified; Z88.5 Allergy status to narcotic agent; Z90.49 Acquired absence of other specified parts of digestive tract; Z79.899 Other long term (current) drug therapy; Z98.890 Other specified postprocedural states; Z87.19 Personal history of other diseases of the digestive system; Z98.51 Tubal ligation status
CPT/HCPCS: 99285; 71045; 80076; 80048; 81003; 83690; 85025; 84484; 36415; 93005; Q0162

== ENCOUNTER 2025-01-16 08:23 | Emergency (ER) | payer MEDICAID, OTHER ==
[~2025-01-16] VITALS: Ht 162.6 cm; Wt 70.0 kg
[~2025-01-16 08:23] MED LIST changes: +FAMO-134 MT
[2025-01-16 08:35] VITALS: O2SAT 98
[2025-01-16] MEDS: SUCRALFATE 1G TABLET PO STA (09:05)
[2025-01-16] MEDS: ONDANSETRON 4MG ODT PO STA (09:05)
[2025-01-16] MEDS: MAGNESIUM/ALUMINUM HYDROXIDE/SIMETHICONE 30ML UDC PO STA (09:05)
[2025-01-16 09:09] LABS: HEMATOCRIT. 44.6 % (36.0-48.0); HEMOGLOBIN. 14.6 g/dL (12.0-16.0); MEAN CORPUSCULAR HEMOGLOBIN 28.6 pg (28.0-32.0); MEAN CORPUSCULAR HGB CONC 32.7 g/dL (31.0-37.0); MEAN CORPUSCULAR VOLUME 87.7 fL (81.0-99.0); MEAN PLATELET VOLUME 7.2 fl (7.4-10.4); PLATELET 377 x1000/uL (130-400); RED BLOOD CELL COUNT 5.08 mill/uL (4.2-5.4); RED CELL DISTRIBUTION WIDTH 15.5 % (11.6-14.6); WHITE BLOOD COUNT 11.5 x1000/uL (4.5-11.0)
[2025-01-16 09:11] LABS: DIFFERENTIAL COMMENT 1
[2025-01-16 09:18] LABS: CARBON DIOXIDE 26 mEq/L (21-32); CHLORIDE 106 mEq/L (98-107); POTASSIUM 4.2 mEq/L (3.5-5.1); SODIUM 139 mEq/L (136-145)
[2025-01-16 09:19] LABS: CALCIUM 9.6 mg/dL (8.7-10.4)
[2025-01-16] MEDS: SUCRALFATE 1G TABLET PO NR (09:21)
[2025-01-16 09:24] LABS: CREATININE 0.8 mg/dL (0.6-1.0); GLUCOSE 97 mg/dL (70-105); UREA NITROGEN BLOOD 12 mg/dL (9-23)
[2025-01-16 09:27] LABS: TROPONIN I HIGH SENSITIVITY < 4 ng/L (3.0-34)
[2025-01-16 09:41] LABS: CLARITY URINE CLEAR (CLEAR); COLOR URINE YELLOW (YELLOW); GLUCOSE URINE NEGATIVE (NEGATIVE); PH URINE 5.5 (4.5-8.0); PROTEIN URINE NEGATIVE (NEGATIVE); SPECIFIC GRAVITY URINE 1.025 (1.005-1.030)
[2025-01-16 09:42] LABS: KETONES URINE NEGATIVE (NEGATIVE); LEUKOCYTE ESTERASE URINE NEGATIVE (NEGATIVE); NITRITE URINE NEGATIVE (NEGATIVE); OCCULT BLOOD URINE 1+ (NEGATIVE); UROBILINOGEN URINE 0.2 E.U./dL (0.2-1.0)
[2025-01-16 09:46] LABS: BACTERIA URINE FEW; RBC URINE 0-2 /hpf (0-2); SQUAMOUS EPITHELIAL CELL URINE 2+ /lpf (RARE/1+); WBC URINE 0-2 /hpf (0-2)
[2025-01-16 09:47] LABS: YEAST URINE NONE SEEN
[2025-01-16 09:48] LABS: ANISOCYTOSIS 1+; PLATELET ESTIMATE NORMAL
[2025-01-16] MEDS ORDERED: PROT40 MT (10:19)
[2025-01-16] MEDS ORDERED: FAMO40TA70 MT (10:28)
[2025-01-16 10:38] VITALS: BP 135/69; PULSE 90; RESP 16; TEMP 37; O2SAT 98
== END 2025-01-16 10:42 | disposition home or self-care (01) ==
LOC: ER 08:23
DX: K21.9 Gastro-esophageal reflux disease without esophagitis (principal); R10.13 Epigastric pain; F41.9 Anxiety disorder, unspecified; E78.00 Pure hypercholesterolemia, unspecified; Z79.899 Other long term (current) drug therapy; Z90.49 Acquired absence of other specified parts of digestive tract; Z98.51 Tubal ligation status; Z88.5 Allergy status to narcotic agent
CPT/HCPCS: 99284; 80048; 81003; 85025; 84484; 36415; Q0162

== ENCOUNTER 2025-01-27 08:08 | Emergency (ER) | payer OTHER ==
[~2025-01-27] VITALS: Ht 162.6 cm; Wt 68.0 kg
[~2025-01-27 08:08] MED LIST changes: -PROT40 MT
[2025-01-27 08:21] VITALS: O2SAT 100
[2025-01-27 08:55] LABS: HEMOGLOBIN. 14.3 g/dL (12.0-16.0); MEAN CORPUSCULAR HEMOGLOBIN 29.7 pg (28.0-32.0); MEAN CORPUSCULAR VOLUME 87.4 fL (81.0-99.0); MEAN PLATELET VOLUME 7.2 fl (7.4-10.4); PLATELET 325 x1000/uL (130-400); RED CELL DISTRIBUTION WIDTH 15.6 % (11.6-14.6); WHITE BLOOD COUNT 9.3 x1000/uL (4.5-11.0)
[2025-01-27 08:56] LABS: DIFFERENTIAL COMMENT 1
[2025-01-27 09:04] LABS: CARBON DIOXIDE 27 mEq/L (21-32); CHLORIDE 108 mEq/L (98-107); POTASSIUM 3.7 mEq/L (3.5-5.1); SODIUM 140 mEq/L (136-145)
[2025-01-27 09:05] LABS: CALCIUM 9.3 mg/dL (8.7-10.4)
[2025-01-27 09:10] LABS: CREATININE 0.7 mg/dL (0.6-1.0); GLUCOSE 104 mg/dL (70-105); UREA NITROGEN BLOOD 12 mg/dL (9-23)
[2025-01-27 09:11] LABS: ALANINE AMINOTRANSFERASE 25 IU/L (10-49)
[2025-01-27 09:12] LABS: ALBUMIN 4.3 g/dL (3.2-4.8); ASPARTATE AMINOTRANSFERASE 23 IU/L (<34); BILIRUBIN DIRECT 0.1 mg/dL (<=3.0); BILIRUBIN TOTAL 0.7 mg/dL (0.1-1.0)
[2025-01-27 09:16] LABS: TROPONIN I HIGH SENSITIVITY < 4 ng/L (3.0-34)
[2025-01-27 10:05] LABS: ANISOCYTOSIS 1+; PLATELET ESTIMATE NORMAL
[2025-01-27 10:11] LABS: CLARITY URINE CLEAR (CLEAR); COLOR URINE YELLOW (YELLOW); GLUCOSE URINE NEGATIVE (NEGATIVE); KETONES URINE NEGATIVE (NEGATIVE); LEUKOCYTE ESTERASE URINE NEGATIVE (NEGATIVE); NITRITE URINE NEGATIVE (NEGATIVE); OCCULT BLOOD URINE TRACE (NEGATIVE); PROTEIN URINE NEGATIVE (NEGATIVE); SPECIFIC GRAVITY URINE 1.019 (1.005-1.030); UROBILINOGEN URINE 0.2 E.U./dL (0.2-1.0)
[2025-01-27] MEDS ORDERED: DICYCLOMINE 10 MG/5 ML ORAL SYR PO ONE (10:15)
[2025-01-27] MEDS: VISCOUS LIDOCAINE 2% 15 ML UDC PO ONE (10:18)
[2025-01-27] MEDS: DICYCLOMINE HCL 10MG CAPSULE PO SCH (10:18)
[2025-01-27] MEDS: MAGNESIUM/ALUMINUM HYDROXIDE/SIMETHICONE 30ML UDC PO ONE (10:19)
[2025-01-27] MEDS: PANTOPRAZOLE 40MG DR TABLET PO ONE (10:19)
[2025-01-27 10:37] LABS: SQUAMOUS EPITHELIAL CELL URINE 2+ /lpf (RARE/1+)
[2025-01-27 10:38] LABS: WBC URINE 0-2 /hpf (0-2)
[2025-01-27 10:39] LABS: BACTERIA URINE 1+
[2025-01-27] MEDS: ONDANSETRON 4MG ODT PO ONE (10:40)
[2025-01-27] MEDS ORDERED: FAMO-135 MT (11:07)
[2025-01-27] MEDS ORDERED: MAG355OR21 MT (11:07)
[2025-01-27 11:19] VITALS: BP 135/68; PULSE 93; RESP 18; TEMP 36.8; O2SAT 100
== END 2025-01-27 11:28 | disposition home or self-care (01) ==
LOC: ER 08:08
DX: K29.70 Gastritis, unspecified, without bleeding (principal); K21.9 Gastro-esophageal reflux disease without esophagitis; F41.9 Anxiety disorder, unspecified; E78.00 Pure hypercholesterolemia, unspecified; I10 Essential (primary) hypertension; Z90.49 Acquired absence of other specified parts of digestive tract; Z98.51 Tubal ligation status; Z88.5 Allergy status to narcotic agent; Z79.899 Other long term (current) drug therapy
CPT/HCPCS: 99284; 80076; 80048; 81003; 83690; 85025; 84484; 36415; Q0162

== ENCOUNTER 2025-02-03 08:31 | Emergency (ER) | payer OTHER ==
[~2025-02-03] VITALS: Ht 134.6 cm; Wt 65.0 kg
[2025-02-03 08:52] VITALS: TEMP 36.9; O2SAT 100
[2025-02-03 09:19] LABS: HEMATOCRIT 42.9 % (36.0-48.0); HEMOGLOBIN 14.7 g/dL (12.0-16.0); MEAN CORPUSCULAR HEMOGLOBIN 29.9 pg (28.0-32.0); MEAN CORPUSCULAR HGB CONC 34.2 g/dL (31.0-37.0); MEAN CORPUSCULAR VOLUME 87.5 fL (81.0-99.0); PLATELET 351 x1000/uL (130-400); RED CELL DISTRIBUTION WIDTH 15.9 % (11.6-14.6); WHITE BLOOD COUNT 11.3 x1000/uL (4.5-11.0)
[2025-02-03 09:24] LABS: CLARITY URINE CLEAR (CLEAR); COLOR URINE YELLOW (YELLOW); GLUCOSE URINE NEGATIVE (NEGATIVE); KETONES URINE NEGATIVE (NEGATIVE); LEUKOCYTE ESTERASE URINE NEGATIVE (NEGATIVE); NITRITE URINE NEGATIVE (NEGATIVE); OCCULT BLOOD URINE TRACE (NEGATIVE); PH URINE 5.5 (4.5-8.0); PROTEIN URINE NEGATIVE (NEGATIVE); SPECIFIC GRAVITY URINE 1.017 (1.005-1.030); UROBILINOGEN URINE 0.2 E.U./dL (0.2-1.0)
[2025-02-03 09:30] LABS: CARBON DIOXIDE 26 mEq/L (21-32); CHLORIDE 107 mEq/L (98-107); POTASSIUM 4.1 mEq/L (3.5-5.1); SODIUM 141 mEq/L (136-145)
[2025-02-03] MEDS ORDERED: DICYCLOMINE 10 MG/5 ML ORAL SYR PO STA (09:30)
[2025-02-03] MEDS ORDERED: ONDANSETRON 4MG ODT PO STA (09:30)
[2025-02-03] MEDS ORDERED: MAGNESIUM/ALUMINUM HYDROXIDE/SIMETHICONE 30ML UDC PO STA (09:30)
[2025-02-03] MEDS ORDERED: DIPHENHYDRAMINE 25MG CAPSULE PO ONE (09:30)
[2025-02-03 09:36] LABS: CREATININE 0.8 mg/dL (0.6-1.0); GLUCOSE 109 mg/dL (70-105); UREA NITROGEN BLOOD 10 mg/dL (9-23)
[2025-02-03 09:37] LABS: ALANINE AMINOTRANSFERASE 20 IU/L (10-49); ALBUMIN 4.8 g/dL (3.2-4.8); ASPARTATE AMINOTRANSFERASE 22 IU/L (<34)
[2025-02-03] MEDS ORDERED: FAMO20TA8 PO (09:37)
[2025-02-03 09:38] LABS: BILIRUBIN DIRECT 0.1 mg/dL (<=3.0); BILIRUBIN TOTAL 0.5 mg/dL (0.1-1.0); PROTEIN TOTAL 7.5 g/dL (6.0-8.3)
[2025-02-03 09:47] LABS: BACTERIA URINE 1+; SQUAMOUS EPITHELIAL CELL URINE 1+ /lpf (RARE/1+); YEAST URINE NONE SEEN
[2025-02-03] MEDS: MAGNESIUM/ALUMINUM HYDROXIDE/SIMETHICONE 30ML UDC PO NR (10:10)
[2025-02-03] MEDS: DICYCLOMINE HCL 10MG CAPSULE PO NR (10:10)
[2025-02-03] MEDS: DIPHENHYDRAMINE 25MG CAPSULE PO NR (10:10)
[2025-02-03] MEDS: ONDANSETRON 4MG ODT PO NR (10:10)
[2025-02-03] MEDS: METHYLPREDNISOLONE SOD SUCC 125MG/2ML (ACT-O-VIAL) IM ONE (10:11)
[2025-02-03 10:18] VITALS: BP 146/83; PULSE 107; RESP 18; O2SAT 100
== END 2025-02-03 10:26 | disposition home or self-care (01) ==
LOC: ER 09:22
DX: K29.70 Gastritis, unspecified, without bleeding (principal); R21 Rash and other nonspecific skin eruption; E78.00 Pure hypercholesterolemia, unspecified; F41.9 Anxiety disorder, unspecified; M19.90 Unspecified osteoarthritis, unspecified site; Z79.624 Long term (current) use of inhibitors of nucleotide synthesis; Z79.631 Long term (current) use of antimetabolite agent; Z79.899 Other long term (current) drug therapy; Z87.19 Personal history of other diseases of the digestive system; Z88.5 Allergy status to narcotic agent; Z90.49 Acquired absence of other specified parts of digestive tract; Z98.51 Tubal ligation status
CPT/HCPCS: 99284; 80076; 80048; 81003; 83690; 85027; 36415; 96372; J2919; Q0163; Q0162

== ENCOUNTER 2025-02-06 08:08 | Emergency (ER) | payer OTHER ==
[~2025-02-06] VITALS: Ht 157.5 cm; Wt 65.7 kg
[2025-02-06 08:13] VITALS: TEMP 36.8; O2SAT 98
[2025-02-06 08:47] LABS: BASOPHILS % 0.5 % (0.0-2.0); EOSINOPHILS % 1.1 % (0.0-5.0); HEMOGLOBIN. 14.8 g/dL (12.0-16.0); LYMPHOCYTES % 26.9 % (20.0-50.0); MEAN CORPUSCULAR HEMOGLOBIN 29.5 pg (28.0-32.0); MEAN CORPUSCULAR HGB CONC 33.6 g/dL (31.0-37.0); MEAN CORPUSCULAR VOLUME 87.9 fL (81.0-99.0); MEAN PLATELET VOLUME 7.4 fl (7.4-10.4); MONOCYTES % 10.8 % (2.0-8.0); NEUTROPHILS % 60.7 % (40.0-76.0); PLATELET 382 x1000/uL (130-400); RED BLOOD CELL COUNT 5.01 mill/uL (4.2-5.4); RED CELL DISTRIBUTION WIDTH 15.3 % (11.6-14.6); WHITE BLOOD COUNT 9.6 x1000/uL (4.5-11.0)
[2025-02-06 08:53] LABS: CARBON DIOXIDE 27 mEq/L (21-32); CHLORIDE 107 mEq/L (98-107); SODIUM 142 mEq/L (136-145)
[2025-02-06 08:54] LABS: CALCIUM 9.7 mg/dL (8.7-10.4)
[2025-02-06] MEDS: MAGNESIUM/ALUMINUM HYDROXIDE/SIMETHICONE 30ML UDC PO STA (08:57)
[2025-02-06] MEDS: VISCOUS LIDOCAINE 2% 15 ML UDC PO STA (08:57)
[2025-02-06] MEDS: SUCRALFATE 1G TABLET PO SCH (08:58)
[2025-02-06] MEDS: ONDANSETRON 4MG ODT PO STA (08:58)
[2025-02-06 08:59] LABS: CREATININE 0.8 mg/dL (0.6-1.0); GLUCOSE 114 mg/dL (70-105); UREA NITROGEN BLOOD 10 mg/dL (9-23)
[2025-02-06 09:01] LABS: ALANINE AMINOTRANSFERASE 22 IU/L (10-49); ALBUMIN 4.8 g/dL (3.2-4.8); ASPARTATE AMINOTRANSFERASE 26 IU/L (<34); BILIRUBIN DIRECT 0.1 mg/dL (<=3.0); BILIRUBIN TOTAL 0.6 mg/dL (0.1-1.0); PROTEIN TOTAL 7.5 g/dL (6.0-8.3)
[2025-02-06 09:12] LABS: CLARITY URINE CLEAR (CLEAR); COLOR URINE YELLOW (YELLOW); GLUCOSE URINE NEGATIVE (NEGATIVE); KETONES URINE NEGATIVE (NEGATIVE); LEUKOCYTE ESTERASE URINE NEGATIVE (NEGATIVE); NITRITE URINE NEGATIVE (NEGATIVE); OCCULT BLOOD URINE TRACE (NEGATIVE); PROTEIN URINE NEGATIVE (NEGATIVE); SPECIFIC GRAVITY URINE 1.012 (1.005-1.030); UROBILINOGEN URINE 0.2 E.U./dL (0.2-1.0)
[2025-02-06 09:41] LABS: BACTERIA URINE 1+; SQUAMOUS EPITHELIAL CELL URINE 1+ /lpf (RARE/1+); WBC URINE 0-2 /hpf (0-2); YEAST URINE NONE SEEN
[2025-02-06 09:42] LABS: TROPONIN I HIGH SENSITIVITY < 4 ng/L (3.0-34)
[2025-02-06] MEDS ORDERED: OMEP40CA20 MT (10:19)
[2025-02-06] MEDS ORDERED: SUCR1TAB30 MT (10:22)
[2025-02-06 10:34] VITALS: BP 137/93; PULSE 81; RESP 16; O2SAT 97
== END 2025-02-06 10:41 | disposition home or self-care (01) ==
LOC: ER 08:08
DX: K21.9 Gastro-esophageal reflux disease without esophagitis (principal); E78.00 Pure hypercholesterolemia, unspecified; F41.9 Anxiety disorder, unspecified; Z88.5 Allergy status to narcotic agent; Z79.899 Other long term (current) drug therapy; Z90.49 Acquired absence of other specified parts of digestive tract; Z98.51 Tubal ligation status; Z87.19 Personal history of other diseases of the digestive system
CPT/HCPCS: 99285; 71045; 80076; 80048; 81003; 83880; 83690; 85025; 84484; 36415; 93005; Q0162

== ENCOUNTER 2025-02-14 07:34 | Emergency (ER) | payer OTHER ==
[~2025-02-14] VITALS: Ht 152.4 cm; Wt 65.7 kg
[2025-02-14 07:41] VITALS: O2SAT 99
[2025-02-14 08:09] LABS: BASOPHILS % 0.5 % (0.0-2.0); EOSINOPHILS % 0.9 % (0.0-5.0); HEMATOCRIT. 42.6 % (36.0-48.0); HEMOGLOBIN. 14.3 g/dL (12.0-16.0); LYMPHOCYTES % 19.8 % (20.0-50.0); MEAN CORPUSCULAR HEMOGLOBIN 29.8 pg (28.0-32.0); MEAN CORPUSCULAR HGB CONC 33.6 g/dL (31.0-37.0); MEAN CORPUSCULAR VOLUME 88.6 fL (81.0-99.0); MEAN PLATELET VOLUME 7.3 fl (7.4-10.4); MONOCYTES % 6.4 % (2.0-8.0); NEUTROPHILS % 72.4 % (40.0-76.0); PLATELET 363 x1000/uL (130-400); RED BLOOD CELL COUNT 4.81 mill/uL (4.2-5.4); RED CELL DISTRIBUTION WIDTH 16.1 % (11.6-14.6); WHITE BLOOD COUNT 15.6 x1000/uL (4.5-11.0)
[2025-02-14 08:17] LABS: CHLORIDE 110 mEq/L (98-107); POTASSIUM 3.6 mEq/L (3.5-5.1); SODIUM 143 mEq/L (136-145)
[2025-02-14 08:18] LABS: CALCIUM 9.5 mg/dL (8.7-10.4); CARBON DIOXIDE 27 mEq/L (21-32)
[2025-02-14 08:23] LABS: CREATININE 0.8 mg/dL (0.6-1.0); GLUCOSE 91 mg/dL (70-105); UREA NITROGEN BLOOD 10 mg/dL (9-23)
[2025-02-14 08:40] LABS: TROPONIN I HIGH SENSITIVITY < 4 ng/L (3.0-34)
[2025-02-14 08:59] LABS: ALANINE AMINOTRANSFERASE 21 IU/L (10-49); ALBUMIN 4.6 g/dL (3.2-4.8); ASPARTATE AMINOTRANSFERASE 21 IU/L (<34); BILIRUBIN DIRECT < 0.1 mg/dL (<=3.0); BILIRUBIN TOTAL 0.4 mg/dL (0.1-1.0); PROTEIN TOTAL 6.9 g/dL (6.0-8.3)
[2025-02-14] MEDS: ONDANSETRON 4MG ODT PO STA (09:10)
[2025-02-14] MEDS: MAGNESIUM/ALUMINUM HYDROXIDE/SIMETHICONE 30ML UDC PO STA (09:10)
[2025-02-14] MEDS: KETOROLAC 30MG/ML VIAL IM STA (09:11)
[2025-02-14] MEDS: DICYCLOMINE 10 MG/5 ML ORAL SYR PO STA (09:12)
[2025-02-14] MEDS: DICYCLOMINE HCL 10MG CAPSULE PO SCH (09:12)
[2025-02-14 10:32] VITALS: BP 114/65; PULSE 98; RESP 20; TEMP 36.4; O2SAT 100
== END 2025-02-14 10:43 | disposition home or self-care (01) ==
LOC: ER 07:34
DX: K29.50 Unspecified chronic gastritis without bleeding (principal); R07.89 Other chest pain; E78.00 Pure hypercholesterolemia, unspecified; Z79.899 Other long term (current) drug therapy; Z79.631 Long term (current) use of antimetabolite agent; Z87.19 Personal history of other diseases of the digestive system; Z79.624 Long term (current) use of inhibitors of nucleotide synthesis; Z88.5 Allergy status to narcotic agent
CPT/HCPCS: 80076; 80048; 83690; 85025; 84484; 36415; 71045; 93005; 96372; 99285; Q0162; J1885; Z7610; 99284

== ENCOUNTER 2025-02-18 08:32 | Emergency (ER) | payer MEDICAID ==
[~2025-02-18] VITALS: Ht 157.5 cm; Wt 79.2 kg
[2025-02-18] MEDS ORDERED: ONDANSETRON 4MG ODT PO STA (08:44)
[2025-02-18] MEDS ORDERED: MAGNESIUM/ALUMINUM HYDROXIDE/SIMETHICONE 30ML UDC PO STA (08:44)
[2025-02-18] MEDS ORDERED: DICYCLOMINE 10 MG/5 ML ORAL SYR PO STA (08:44)
[2025-02-18] MEDS ORDERED: FAMOTIDINE 20MG TABLET PO ONE (08:45)
[2025-02-18 08:51] VITALS: O2SAT 99
[2025-02-18 09:21] LABS: CHLORIDE 106 mEq/L (98-107); POTASSIUM 3.5 mEq/L (3.5-5.1); SODIUM 141 mEq/L (136-145)
[2025-02-18 09:22] LABS: CALCIUM 9.9 mg/dL (8.7-10.4); CARBON DIOXIDE 27 mEq/L (21-32)
[2025-02-18 09:27] LABS: CREATININE 0.9 mg/dL (0.6-1.0); GLUCOSE 95 mg/dL (70-105); UREA NITROGEN BLOOD 11 mg/dL (9-23)
[2025-02-18 09:29] LABS: ALANINE AMINOTRANSFERASE 23 IU/L (10-49); ALBUMIN 4.7 g/dL (3.2-4.8); ASPARTATE AMINOTRANSFERASE 19 IU/L (<34); BILIRUBIN DIRECT < 0.1 mg/dL (<=3.0)
[2025-02-18 09:30] LABS: BILIRUBIN TOTAL 0.4 mg/dL (0.1-1.0); PROTEIN TOTAL 7.4 g/dL (6.0-8.3)
[2025-02-18] MEDS: DICYCLOMINE HCL 10MG CAPSULE PO NR (09:37)
[2025-02-18] MEDS: ONDANSETRON 4MG ODT PO NR (09:37)
[2025-02-18] MEDS: FAMOTIDINE 20MG TABLET PO NR (09:38)
[2025-02-18] MEDS: MAGNESIUM/ALUMINUM HYDROXIDE/SIMETHICONE 30ML UDC PO NR (09:38)
[2025-02-18 09:43] LABS: BASOPHILS % 0.7 % (0.0-2.0); EOSINOPHILS % 1.3 % (0.0-5.0); HEMATOCRIT. 42.2 % (36.0-48.0); HEMOGLOBIN. 14.1 g/dL (12.0-16.0); LYMPHOCYTES % 29.5 % (20.0-50.0); MEAN CORPUSCULAR HEMOGLOBIN 29.5 pg (28.0-32.0); MEAN CORPUSCULAR HGB CONC 33.5 g/dL (31.0-37.0); MEAN PLATELET VOLUME 7.7 fl (7.4-10.4); NEUTROPHILS % 57.5 % (40.0-76.0); PLATELET 376 x1000/uL (130-400); RED BLOOD CELL COUNT 4.79 mill/uL (4.2-5.4); RED CELL DISTRIBUTION WIDTH 15.6 % (11.6-14.6); WHITE BLOOD COUNT 7.8 x1000/uL (4.5-11.0)
[2025-02-18] MEDS: KETOROLAC 15MG/ML VIAL IM ONE (10:27)
[2025-02-18 10:48] VITALS: BP 144/72; PULSE 89; RESP 18; TEMP 36.7; O2SAT 100
== END 2025-02-18 10:49 | disposition home or self-care (01) ==
LOC: ER 08:32
DX: G89.29 Other chronic pain (principal); K29.50 Unspecified chronic gastritis without bleeding; E78.00 Pure hypercholesterolemia, unspecified; Z79.899 Other long term (current) drug therapy; Z88.5 Allergy status to narcotic agent
CPT/HCPCS: 99284; 80076; 80048; 83690; 85025; 36415; 96372; J1885; Q0162

== ENCOUNTER 2025-03-06 07:41 | Emergency (ER) | payer MEDICAID ==
[~2025-03-06] VITALS: Ht 162.6 cm; Wt 66.0 kg
[2025-03-06 07:48] VITALS: O2SAT 99
[2025-03-06] MEDS: ONDANSETRON 4MG ODT PO NR (08:52)
[2025-03-06] MEDS: MAGNESIUM/ALUMINUM HYDROXIDE/SIMETHICONE 30ML UDC PO NR (08:52)
[2025-03-06] MEDS: FAMOTIDINE 20MG TABLET PO NR (08:53)
[2025-03-06 09:14] LABS: BASOPHILS % 0.3 % (0.0-2.0); EOSINOPHILS % 1.9 % (0.0-5.0); HEMATOCRIT. 44.6 % (36.0-48.0); HEMOGLOBIN. 14.8 g/dL (12.0-16.0); LYMPHOCYTES % 28.4 % (20.0-50.0); MEAN PLATELET VOLUME 7.6 fl (7.4-10.4); MONOCYTES % 10.9 % (2.0-8.0); NEUTROPHILS % 58.5 % (40.0-76.0); PLATELET 351 x1000/uL (130-400); RED BLOOD CELL COUNT 5.11 mill/uL (4.2-5.4); RED CELL DISTRIBUTION WIDTH 15.6 % (11.6-14.6)
[2025-03-06 09:31] LABS: CREATININE 0.7 mg/dL (0.6-1.0); UREA NITROGEN BLOOD 10 mg/dL (9-23)
[2025-03-06 09:32] LABS: TROPONIN I HIGH SENSITIVITY < 4 ng/L (3.0-34)
[2025-03-06 10:06] VITALS: BP 144/84; PULSE 90; RESP 18; TEMP 36.9; O2SAT 99
== END 2025-03-06 10:06 | disposition home or self-care (01) ==
LOC: ER 07:41
DX: K29.70 Gastritis, unspecified, without bleeding (principal); E78.00 Pure hypercholesterolemia, unspecified; Z88.5 Allergy status to narcotic agent; Z90.710 Acquired absence of both cervix and uterus; Z79.899 Other long term (current) drug therapy; Z87.19 Personal history of other diseases of the digestive system; Z82.49 Family history of ischemic heart disease and other diseases of the circulatory system; Z98.51 Tubal ligation status
CPT/HCPCS: 99285; 71045; 80048; 85025; 84484; 36415; 93005; Q0162

== ENCOUNTER 2025-03-13 08:08 | Emergency (ER) | payer MEDICAID ==
[~2025-03-13] VITALS: Ht 157.5 cm; Wt 66.0 kg
[2025-03-13 08:14] VITALS: O2SAT 98
[2025-03-13 08:15] VITALS: TEMP 36.6; O2SAT 99
[2025-03-13 08:47] LABS: HEMATOCRIT. 42.0 % (36.0-48.0); HEMOGLOBIN. 14.0 g/dL (12.0-16.0); MEAN PLATELET VOLUME 7.4 fl (7.4-10.4); PLATELET 321 x1000/uL (130-400); RED BLOOD CELL COUNT 4.82 mill/uL (4.2-5.4); RED CELL DISTRIBUTION WIDTH 15.3 % (11.6-14.6)
[2025-03-13 09:00] LABS: CLARITY URINE CLEAR (CLEAR); COLOR URINE YELLOW (YELLOW); GLUCOSE URINE NEGATIVE (NEGATIVE); KETONES URINE NEGATIVE (NEGATIVE); NITRITE URINE NEGATIVE (NEGATIVE); OCCULT BLOOD URINE TRACE (NEGATIVE); PH URINE 5.5 (4.5-8.0); PROTEIN URINE NEGATIVE (NEGATIVE); SPECIFIC GRAVITY URINE 1.016 (1.005-1.030)
[2025-03-13 09:01] LABS: LEUKOCYTE ESTERASE URINE 2+ (NEGATIVE); UROBILINOGEN URINE 0.2 E.U./dL (0.2-1.0)
[2025-03-13 09:04] LABS: CREATININE 0.8 mg/dL (0.6-1.0)
[2025-03-13 09:05] LABS: UREA NITROGEN BLOOD 13 mg/dL (9-23)
[2025-03-13 09:06] LABS: ASPARTATE AMINOTRANSFERASE 21 IU/L (<34)
[2025-03-13 09:07] LABS: BILIRUBIN DIRECT 0.2 mg/dL (<=3.0); BILIRUBIN TOTAL 0.7 mg/dL (0.1-1.0); PROTEIN TOTAL 7.2 g/dL (6.0-8.3)
[2025-03-13 09:12] VITALS: BP 142/76; PULSE 92; RESP 16
[2025-03-13] MEDS: MAGNESIUM/ALUMINUM HYDROXIDE/SIMETHICONE 30ML UDC PO ONE (09:12)
[2025-03-13] MEDS: ONDANSETRON 4MG ODT PO ONE (09:12)
[2025-03-13] MEDS: FAMOTIDINE 20MG TABLET PO ONE (09:12)
[2025-03-13] MEDS: KETOROLAC 30MG/ML VIAL IM ONE (09:12)
[2025-03-13] MEDS ORDERED: ACET-2708 PO (09:54)
[2025-03-13] MEDS ORDERED: PROT40 MT (09:54)
[2025-03-13] MEDS ORDERED: ONDA-239 PO (09:54)
[2025-03-13] MEDS ORDERED: MAG355OR21 MT (09:54)
[2025-03-13 10:20] LABS: SQUAMOUS EPITHELIAL CELL URINE 2+ /lpf (RARE/1+)
[2025-03-13 10:21] LABS: RBC URINE 0-2 /hpf (0-2); WBC URINE 25-50 /hpf (0-2)
[2025-03-13 10:22] LABS: BACTERIA URINE 2+
[2025-03-13 10:31] LABS: BAND% 2.0 % (1.0-6.0); BASOPHILS % MANUAL 1.0 % (0.0-2.0); EOSINOPHILS % MANUAL 1.0 % (0.0-5.0); LYMPHOCYTES % MANUAL 32.0 % (20.0-60.0); METAMYELOCYTES % 2.0 % (0-0); MONOCYTES % MANUAL 9.0 % (2.0-8.0); NEUTROPHILS % MANUAL 53.0 % (45.0-75.0); PLATELET ESTIMATE NORMAL
== END 2025-03-13 10:14 | disposition home or self-care (01) ==
LOC: ER 08:08
DX: K29.50 Unspecified chronic gastritis without bleeding (principal); E78.00 Pure hypercholesterolemia, unspecified; Z90.710 Acquired absence of both cervix and uterus; Z79.899 Other long term (current) drug therapy; Z88.5 Allergy status to narcotic agent
CPT/HCPCS: 80076; 80048; 81003; 83690; 85025; 87086; 87186; 87077; 36415; 93005; 96372; 99284; Q0162; J1885; Z7610

== ENCOUNTER 2025-04-21 08:05 | Emergency (ER) | payer MEDICAID ==
[~2025-04-21] VITALS: Ht 160 cm; Wt 77.0 kg
[~2025-04-21 08:05] MED LIST changes: +ONDA-239 PO; +PROT40 MT
[2025-04-21 08:14] VITALS: O2SAT 99
[2025-04-21 08:27] LABS: HEMATOCRIT. 41.5 % (36.0-48.0); HEMOGLOBIN. 13.9 g/dL (12.0-16.0); MEAN PLATELET VOLUME 7.2 fl (7.4-10.4); PLATELET 351 x1000/uL (130-400); RED BLOOD CELL COUNT 4.75 mill/uL (4.2-5.4); RED CELL DISTRIBUTION WIDTH 15.7 % (11.6-14.6)
[2025-04-21 08:40] LABS: CREATININE 0.7 mg/dL (0.6-1.0); UREA NITROGEN BLOOD 12 mg/dL (9-23)
[2025-04-21 08:41] LABS: TROPONIN I HIGH SENSITIVITY < 4 ng/L (3.0-34)
[2025-04-21] MEDS: FAMOTIDINE 20MG TABLET PO ONE (08:50)
[2025-04-21] MEDS: DICYCLOMINE HCL 10MG CAPSULE PO ONE (08:50)
[2025-04-21] MEDS: ONDANSETRON 4MG ODT PO ONE (08:50)
[2025-04-21] MEDS: MAGNESIUM/ALUMINUM HYDROXIDE/SIMETHICONE 30ML UDC PO ONE (08:50)
[2025-04-21 09:06] LABS: ASPARTATE AMINOTRANSFERASE 17 IU/L (<34); BILIRUBIN DIRECT < 0.1 mg/dL (<=3.0); BILIRUBIN TOTAL 0.4 mg/dL (0.1-1.0); PROTEIN TOTAL 7.2 g/dL (6.0-8.3)
[2025-04-21] MEDS ORDERED: MAG355OR21 MT (09:15)
[2025-04-21 09:24] VITALS: BP 141/72; PULSE 81; RESP 16; TEMP 36.8; O2SAT 99
[2025-04-21 09:46] LABS: BAND% 3.0 % (1.0-6.0); BASOPHILS % MANUAL 1.0 % (0.0-2.0); LYMPHOCYTES % MANUAL 32.0 % (20.0-60.0); METAMYELOCYTES % 1.0 % (0-0); MONOCYTES % MANUAL 7.0 % (2.0-8.0); NEUTROPHILS % MANUAL 56.0 % (45.0-75.0); PLATELET ESTIMATE NORMAL
== END 2025-04-21 09:30 | disposition home or self-care (01) ==
LOC: ER 08:05
DX: K29.50 Unspecified chronic gastritis without bleeding (principal); E78.00 Pure hypercholesterolemia, unspecified; K21.9 Gastro-esophageal reflux disease without esophagitis; Z79.624 Long term (current) use of inhibitors of nucleotide synthesis; Z79.631 Long term (current) use of antimetabolite agent; Z79.899 Other long term (current) drug therapy; Z88.5 Allergy status to narcotic agent; Z90.710 Acquired absence of both cervix and uterus
CPT/HCPCS: 99284; 80076; 80048; 83690; 85025; 84484; 36415; 93005; Q0162

== ENCOUNTER 2025-05-08 15:54 | Emergency (ER) | payer MEDICAID ==
[~2025-05-08] VITALS: Ht 162.6 cm; Wt 65.0 kg
[2025-05-08 16:01] VITALS: O2SAT 99
[2025-05-08 16:26] LABS: HEMATOCRIT. 41.9 % (36.0-48.0); HEMOGLOBIN. 14.0 g/dL (12.0-16.0); MEAN PLATELET VOLUME 7.1 fl (7.4-10.4); PLATELET 336 x1000/uL (130-400); RED BLOOD CELL COUNT 4.79 mill/uL (4.2-5.4); RED CELL DISTRIBUTION WIDTH 15.4 % (11.6-14.6)
[2025-05-08 16:37] LABS: CREATININE 0.8 mg/dL (0.6-1.0)
[2025-05-08 16:38] LABS: UREA NITROGEN BLOOD 8 mg/dL (9-23)
[2025-05-08 16:39] LABS: ASPARTATE AMINOTRANSFERASE 21 IU/L (<34)
[2025-05-08 16:40] LABS: BILIRUBIN DIRECT < 0.1 mg/dL (<=3.0); BILIRUBIN TOTAL 0.4 mg/dL (0.1-1.0); PROTEIN TOTAL 6.8 g/dL (6.0-8.3)
[2025-05-08] MEDS: ACETAMINOPHEN 325MG TABLET PO ONE (17:15)
[2025-05-08] MEDS: FAMOTIDINE 20MG TABLET PO SCH (17:15)
[2025-05-08] MEDS: VISCOUS LIDOCAINE 2% 15 ML UDC MM ONE (17:16)
[2025-05-08] MEDS: MAGNESIUM/ALUMINUM HYDROXIDE/SIMETHICONE 30ML UDC PO ONE (17:16)
[2025-05-08 17:27] LABS: TROPONIN I HIGH SENSITIVITY < 4 ng/L (3.0-34)
[2025-05-08 17:49] LABS: BAND% 1.0 % (1.0-6.0); EOSINOPHILS % MANUAL 2.0 % (0.0-5.0); LYMPHOCYTES % MANUAL 30.0 % (20.0-60.0); MONOCYTES % MANUAL 4.0 % (2.0-8.0); NEUTROPHILS % MANUAL 63.0 % (45.0-75.0); PLATELET ESTIMATE NORMAL
[2025-05-08] MEDS ORDERED: SUCR1TAB MT (18:26)
[2025-05-08] MEDS ORDERED: FAMO40TA70 MT (18:26)
[2025-05-08] MEDS ORDERED: MAG355OR21 MT (18:26)
[2025-05-08 18:35] VITALS: BP 156/93; PULSE 100; RESP 18; TEMP 37; O2SAT 98
== END 2025-05-08 18:35 | disposition home or self-care (01) ==
LOC: ER 15:54
DX: K29.70 Gastritis, unspecified, without bleeding (principal); K21.9 Gastro-esophageal reflux disease without esophagitis; E78.00 Pure hypercholesterolemia, unspecified; Z90.49 Acquired absence of other specified parts of digestive tract; Z88.5 Allergy status to narcotic agent
CPT/HCPCS: 36415; 71045; 80048; 80076; 84484; 85025; 99284

== ENCOUNTER 2025-05-16 10:10 | Emergency (ER) | payer MEDICAID ==
[~2025-05-16] VITALS: Ht 162.6 cm; Wt 66.0 kg
[2025-05-16 10:29] VITALS: TEMP 37; O2SAT 99
[2025-05-16] MEDS: FAMOTIDINE 20MG TABLET PO SCH (10:54)
[2025-05-16] MEDS: MAGNESIUM/ALUMINUM HYDROXIDE/SIMETHICONE 30ML UDC PO ONE (10:54)
[2025-05-16] MEDS: VISCOUS LIDOCAINE 2% 15 ML UDC MM STA (10:54)
[2025-05-16 11:21] LABS: HEMATOCRIT. 43.3 % (36.0-48.0); HEMOGLOBIN. 14.8 g/dL (12.0-16.0); MEAN PLATELET VOLUME 7.2 fl (7.4-10.4); PLATELET 348 x1000/uL (130-400); RED BLOOD CELL COUNT 4.97 mill/uL (4.2-5.4); RED CELL DISTRIBUTION WIDTH 15.9 % (11.6-14.6)
[2025-05-16] MEDS ORDERED: HYDROCODONE/ACETAMINOPHEN 5/325MG TABLET PO ONE (11:30)
[2025-05-16] MEDS ORDERED: ACETAMINOPHEN 325MG TABLET PO ONE (11:30)
[2025-05-16 11:35] LABS: CREATININE 0.7 mg/dL (0.6-1.0)
[2025-05-16 11:36] LABS: UREA NITROGEN BLOOD 7 mg/dL (9-23)
[2025-05-16 11:38] LABS: ASPARTATE AMINOTRANSFERASE 30 IU/L (<34); BILIRUBIN DIRECT 0.1 mg/dL (<=3.0); BILIRUBIN TOTAL 0.5 mg/dL (0.1-1.0); PROTEIN TOTAL 7.1 g/dL (6.0-8.3)
[2025-05-16 11:58] LABS: BAND% 1.0 % (1.0-6.0); EOSINOPHILS % MANUAL 2.0 % (0.0-5.0); LYMPHOCYTES % MANUAL 34.0 % (20.0-60.0); MONOCYTES % MANUAL 14.0 % (2.0-8.0); NEUTROPHILS % MANUAL 49.0 % (45.0-75.0); PLATELET ESTIMATE NORMAL
[2025-05-16] MEDS ORDERED: KETOROLAC 30MG/ML VIAL IM ONE (12:15)
[2025-05-16] MEDS: ACETAMINOPHEN 325MG TABLET PO ONE (12:15)
[2025-05-16 12:22] VITALS: BP 150/73; PULSE 96; RESP 18; O2SAT 100
== END 2025-05-16 12:29 | disposition home or self-care (01) ==
LOC: ER 10:10
DX: R10.13 Epigastric pain (principal); E78.00 Pure hypercholesterolemia, unspecified; Z87.19 Personal history of other diseases of the digestive system; Z79.899 Other long term (current) drug therapy; Z79.624 Long term (current) use of inhibitors of nucleotide synthesis; Z90.710 Acquired absence of both cervix and uterus; Z90.49 Acquired absence of other specified parts of digestive tract; Z79.631 Long term (current) use of antimetabolite agent; Z88.5 Allergy status to narcotic agent
CPT/HCPCS: 36415; 80048; 80076; 85025; 99284

== ENCOUNTER 2025-05-24 09:42 | Emergency (ER) | payer MEDICAID ==
[~2025-05-24] VITALS: Ht 157.5 cm; Wt 66.0 kg
[2025-05-24 09:51] VITALS: O2SAT 98
[2025-05-24 10:48] LABS: CLARITY URINE CLEAR (CLEAR); COLOR URINE YELLOW (YELLOW); GLUCOSE URINE NEGATIVE (NEGATIVE); KETONES URINE NEGATIVE (NEGATIVE); LEUKOCYTE ESTERASE URINE NEGATIVE (NEGATIVE); NITRITE URINE NEGATIVE (NEGATIVE); OCCULT BLOOD URINE TRACE (NEGATIVE); PH URINE 6.0 (4.5-8.0); PROTEIN URINE NEGATIVE (NEGATIVE); SPECIFIC GRAVITY URINE 1.016 (1.005-1.030); UROBILINOGEN URINE 0.2 E.U./dL (0.2-1.0)
[2025-05-24] MEDS ORDERED: FAMOTIDINE 20MG/2ML VIAL IV ONE (11:00)
[2025-05-24] MEDS ORDERED: ONDANSETRON HCL 4MG/2ML INJ IV ONE (11:00)
[2025-05-24 11:57] LABS: MUCUS URINE TRACE /lpf (< = 2+); SQUAMOUS EPITHELIAL CELL URINE 2+ /lpf (RARE/1+)
[2025-05-24 11:58] LABS: RBC URINE 0-2 /hpf (0-2); WBC URINE 0-2 /hpf (0-2)
[2025-05-24 11:59] LABS: BACTERIA URINE TRACE
[2025-05-24 12:08] LABS: CREATININE 0.7 mg/dL (0.6-1.0); UREA NITROGEN BLOOD 7 mg/dL (9-23)
[2025-05-24 12:10] LABS: ASPARTATE AMINOTRANSFERASE 31 IU/L (<34); BILIRUBIN DIRECT 0.1 mg/dL (<=3.0); TROPONIN I HIGH SENSITIVITY < 4 ng/L (3.0-34)
[2025-05-24 12:11] LABS: BILIRUBIN TOTAL 0.6 mg/dL (0.1-1.0); PROTEIN TOTAL 7.8 g/dL (6.0-8.3)
[2025-05-24] MEDS: SODIUM CHLORIDE 0.9% 1,000 ML IV ONE (12:53)
[2025-05-24] MEDS: FAMOTIDINE 20MG/2ML VIAL IV NR (12:53)
[2025-05-24] MEDS: ONDANSETRON HCL 4MG/2ML INJ IV NR (12:53)
[2025-05-24] MEDS: VISCOUS LIDOCAINE 2% 15 ML UDC MM ONE (13:45)
[2025-05-24] MEDS: MAGNESIUM/ALUMINUM HYDROXIDE/SIMETHICONE 30ML UDC PO ONE (13:45)
[2025-05-24 14:01] LABS: BASOPHILS % 0.8 % (0.0-2.0); EOSINOPHILS % 0.9 % (0.0-5.0); HEMATOCRIT. 43.5 % (36.0-48.0); HEMOGLOBIN. 14.1 g/dL (12.0-16.0); LYMPHOCYTES % 21.5 % (20.0-50.0); MEAN PLATELET VOLUME 7.8 fl (7.4-10.4); MONOCYTES % 9.0 % (2.0-8.0); NEUTROPHILS % 67.8 % (40.0-76.0); PLATELET 357 x1000/uL (130-400); RED BLOOD CELL COUNT 4.87 mill/uL (4.2-5.4); RED CELL DISTRIBUTION WIDTH 15.9 % (11.6-14.6)
[2025-05-24] MEDS ORDERED: DICY-18 MT (14:32)
[2025-05-24 15:30] VITALS: BP 148/68; PULSE 89; RESP 16; TEMP 37; O2SAT 98
== END 2025-05-24 15:30 | disposition home or self-care (01) ==
LOC: ER 09:42 → CMPBEDREQ 16:32
DX: K29.70 Gastritis, unspecified, without bleeding (principal); E78.00 Pure hypercholesterolemia, unspecified; Z79.624 Long term (current) use of inhibitors of nucleotide synthesis; Z79.631 Long term (current) use of antimetabolite agent; Z88.5 Allergy status to narcotic agent; Z90.49 Acquired absence of other specified parts of digestive tract; Z90.710 Acquired absence of both cervix and uterus; Z79.899 Other long term (current) drug therapy
CPT/HCPCS: 80076; 80048; 81003; 83690; 85025; 84484; 36415; 74176; 93005; 96361; 96374; 96375; 99285; J1308; J2405; J7030; Z7610 ×3

== ENCOUNTER 2025-06-06 09:50 | Emergency (ER) | payer MEDICAID ==
[~2025-06-06] VITALS: Ht 162.6 cm; Wt 75.0 kg
[~2025-06-06 09:50] MED LIST changes: +DICY-18 MT
[2025-06-06 09:57] VITALS: O2SAT 98
[2025-06-06] MEDS: VISCOUS LIDOCAINE 2% 15 ML UDC MM ONE (10:00)
[2025-06-06] MEDS: FAMOTIDINE 20MG TABLET PO ONE (10:00)
[2025-06-06] MEDS: MAGNESIUM/ALUMINUM HYDROXIDE/SIMETHICONE 30ML UDC PO ONE (10:00)
[2025-06-06 11:07] VITALS: BP 142/72; PULSE 94; RESP 12; TEMP 36.7; O2SAT 98
== END 2025-06-06 11:08 | disposition home or self-care (01) ==
LOC: ER 09:50
DX: K29.50 Unspecified chronic gastritis without bleeding (principal); K21.9 Gastro-esophageal reflux disease without esophagitis; E78.00 Pure hypercholesterolemia, unspecified; Z79.899 Other long term (current) drug therapy; Z90.49 Acquired absence of other specified parts of digestive tract; Z90.710 Acquired absence of both cervix and uterus; Z88.5 Allergy status to narcotic agent
CPT/HCPCS: 99284

== ENCOUNTER 2025-06-27 13:12 | Emergency (ER) | payer MEDICAID ==
[~2025-06-27] VITALS: Ht 162.6 cm; Wt 70.0 kg
[2025-06-27 14:12] VITALS: TEMP 36.8; O2SAT 100
[2025-06-27 14:15] VITALS: RESP 18
[2025-06-27] MEDS: DIPHENHYDRAMINE 50MG/ML VIAL IM PRN (16:06)
[2025-06-27] MEDS: PREDNISONE 20MG TABLET PO ONE (16:13)
[2025-06-27] MEDS: MAGNESIUM/ALUMINUM HYDROXIDE/SIMETHICONE 30ML UDC PO ONE (16:13)
[2025-06-27] MEDS: PANTOPRAZOLE 40MG DR TABLET PO ONE (16:21)
[2025-06-27] MEDS ORDERED: ACET-2708 PO (17:30)
[2025-06-27] MEDS ORDERED: P50 MT (17:30)
[2025-06-27] MEDS ORDERED: OMEP40CA20 MT (17:30)
[2025-06-27] MEDS ORDERED: DIPH25CA83 MT (17:30)
[2025-06-27] MEDS ORDERED: AZIT250T12 MT (17:30)
[2025-06-27 17:52] VITALS: BP 150/76; PULSE 95; O2SAT 98
== END 2025-06-27 17:53 | disposition home or self-care (01) ==
LOC: ER 13:25
DX: K29.00 Acute gastritis without bleeding (principal); J40 Bronchitis, not specified as acute or chronic; E78.00 Pure hypercholesterolemia, unspecified; K21.9 Gastro-esophageal reflux disease without esophagitis; Z90.710 Acquired absence of both cervix and uterus; Z90.49 Acquired absence of other specified parts of digestive tract; Z88.5 Allergy status to narcotic agent; Z79.899 Other long term (current) drug therapy
CPT/HCPCS: 99284; J7512

== ENCOUNTER 2025-07-07 08:45 | Emergency (ER) | payer MEDICAID ==
[~2025-07-07] VITALS: Ht 162.6 cm; Wt 79.0 kg
[~2025-07-07 08:45] MED LIST changes: +AZIT250T12 MT; +P50 MT
[2025-07-07 08:54] VITALS: TEMP 36.9; O2SAT 99
[2025-07-07 10:19] LABS: BASOPHILS % 0.7 % (0.0-2.0); EOSINOPHILS % 1.2 % (0.0-5.0); HEMATOCRIT. 42.9 % (36.0-48.0); HEMOGLOBIN. 14.2 g/dL (12.0-16.0); LYMPHOCYTES % 19.8 % (20.0-50.0); MEAN PLATELET VOLUME 7.5 fl (7.4-10.4); MONOCYTES % 8.1 % (2.0-8.0); NEUTROPHILS % 70.2 % (40.0-76.0); PLATELET 340 x1000/uL (130-400); RED BLOOD CELL COUNT 4.86 mill/uL (4.2-5.4); RED CELL DISTRIBUTION WIDTH 15.3 % (11.6-14.6)
[2025-07-07] MEDS ORDERED: ONDANSETRON 4MG ODT PO NR (10:30)
[2025-07-07 10:37] LABS: CREATININE 0.7 mg/dL (0.6-1.0); UREA NITROGEN BLOOD 7 mg/dL (9-23)
[2025-07-07] MEDS: MAGNESIUM/ALUMINUM HYDROXIDE/SIMETHICONE 30ML UDC PO ONE (10:37)
[2025-07-07] MEDS: SUCRALFATE 1G TABLET PO SCH (10:37)
[2025-07-07] MEDS: ONDANSETRON 4MG ODT PO ONE (10:37)
[2025-07-07] MEDS: FAMOTIDINE 20MG TABLET PO ONE (10:37)
[2025-07-07] MEDS: VISCOUS LIDOCAINE 2% 15 ML UDC MM ONE (10:37)
[2025-07-07 10:39] LABS: ASPARTATE AMINOTRANSFERASE 19 IU/L (<34); BILIRUBIN DIRECT 0.1 mg/dL (<=3.0)
[2025-07-07 10:40] LABS: BILIRUBIN TOTAL 0.5 mg/dL (0.1-1.0); PROTEIN TOTAL 6.9 g/dL (6.0-8.3)
[2025-07-07] MEDS ORDERED: BENZ100C86 MT (10:50)
[2025-07-07] MEDS ORDERED: MAG355OR21 MT (10:50)
[2025-07-07 12:01] LABS: CLARITY URINE CLEAR (CLEAR); COLOR URINE YELLOW (YELLOW); GLUCOSE URINE NEGATIVE (NEGATIVE); KETONES URINE NEGATIVE (NEGATIVE); NITRITE URINE NEGATIVE (NEGATIVE); OCCULT BLOOD URINE TRACE (NEGATIVE); PH URINE 5.5 (4.5-8.0); PROTEIN URINE NEGATIVE (NEGATIVE); SPECIFIC GRAVITY URINE 1.009 (1.005-1.030); UROBILINOGEN URINE 0.2 E.U./dL (0.2-1.0)
[2025-07-07 12:02] LABS: LEUKOCYTE ESTERASE URINE NEGATIVE (NEGATIVE)
[2025-07-07 12:08] LABS: SQUAMOUS EPITHELIAL CELL URINE 1+ /lpf (RARE/1+)
[2025-07-07 12:10] LABS: RBC URINE NONE SEEN /hpf (0-2); WBC URINE 0-2 /hpf (0-2)
[2025-07-07 12:11] LABS: BACTERIA URINE NONE SEEN
[2025-07-07 12:15] VITALS: BP 145/72; PULSE 76; RESP 16; O2SAT 100
== END 2025-07-07 12:25 | disposition home or self-care (01) ==
LOC: ER 08:52
DX: R10.13 Epigastric pain (principal); R05.9 Cough, unspecified; E78.00 Pure hypercholesterolemia, unspecified; Z79.624 Long term (current) use of inhibitors of nucleotide synthesis; Z79.631 Long term (current) use of antimetabolite agent; Z79.899 Other long term (current) drug therapy; Z87.19 Personal history of other diseases of the digestive system; Z88.5 Allergy status to narcotic agent; Z90.49 Acquired absence of other specified parts of digestive tract; Z90.710 Acquired absence of both cervix and uterus
CPT/HCPCS: 99284; 71045; 80076; 80048; 81003; 83690; 85025; 36415; Q0162

== ENCOUNTER 2025-07-12 10:31 | Emergency (ER) | payer MEDICAID ==
[~2025-07-12] VITALS: Ht 167.6 cm; Wt 68.0 kg
[~2025-07-12 10:31] MED LIST changes: +BENZ100C86 MT
[2025-07-12 10:41] VITALS: O2SAT 100
[2025-07-12] MEDS: VISCOUS LIDOCAINE 2% 15 ML UDC MM ONE (13:06)
[2025-07-12] MEDS: ONDANSETRON 4MG ODT PO ONE (13:06)
[2025-07-12] MEDS: FAMOTIDINE 20MG TABLET PO ONE (13:06)
[2025-07-12] MEDS: MAGNESIUM/ALUMINUM HYDROXIDE/SIMETHICONE 30ML UDC PO ONE (13:06)
[2025-07-12] MEDS ORDERED: FAMO40TA70 MT (13:41)
[2025-07-12 13:55] VITALS: BP 148/65; PULSE 82; RESP 16; TEMP 36.7; O2SAT 100
[2025-09-06] MEDS ORDERED: FAMO40TA70 MT (14:48)
[2025-09-06] MEDS ORDERED: ONDA4TAB50 MT (14:48)
== END 2025-07-12 13:56 | disposition home or self-care (01) ==
LOC: ER 10:31
DX: R10.13 Epigastric pain (principal); E78.00 Pure hypercholesterolemia, unspecified; Z79.624 Long term (current) use of inhibitors of nucleotide synthesis; Z79.631 Long term (current) use of antimetabolite agent; Z79.899 Other long term (current) drug therapy; Z88.5 Allergy status to narcotic agent; Z90.49 Acquired absence of other specified parts of digestive tract; Z90.710 Acquired absence of both cervix and uterus
CPT/HCPCS: 99284; Q0162

== ENCOUNTER 2025-08-20 08:49 | Emergency (ER) | payer MEDICAID ==
[~2025-08-20] VITALS: Ht 162.6 cm; Wt 73.0 kg
[2025-08-20 08:59] VITALS: O2SAT 100
[2025-08-20] MEDS: MAGNESIUM/ALUMINUM HYDROXIDE/SIMETHICONE 30ML UDC PO ONE (10:28)
[2025-08-20] MEDS: FAMOTIDINE 20MG TABLET PO ONE (10:28)
[2025-08-20] MEDS: ONDANSETRON 4MG ODT PO ONE (10:28)
[2025-08-20] MEDS: VISCOUS LIDOCAINE 2% 15 ML UDC MM NR (10:29)
[2025-08-20 11:04] VITALS: BP 138/76; PULSE 66; RESP 18; TEMP 36.9; O2SAT 99
== END 2025-08-20 10:45 | disposition home or self-care (01) ==
LOC: ER 08:49
DX: K21.9 Gastro-esophageal reflux disease without esophagitis (principal); E78.00 Pure hypercholesterolemia, unspecified; I10 Essential (primary) hypertension; Z79.899 Other long term (current) drug therapy; Z90.49 Acquired absence of other specified parts of digestive tract; Z90.710 Acquired absence of both cervix and uterus; Z88.5 Allergy status to narcotic agent
CPT/HCPCS: 99284; 93005; Q0162